=== PATIENT | female | born 1965 | race Caucasian/White ===

== ENCOUNTER 2017-07-05 11:45 | Emergency (ER) | payer OTHER ==
[~2017-07-05] VITALS: Ht 167.6 cm; Wt 68.0 kg
[~2017-07-05 11:45] MED LIST: ACET500 PO; ACIDOPHILUS1 EAC1 PO; ALBU.083IS IH; ALBU90OI6; ALBUIS; ALPR.25 PO; ALPR.5 PO; ASCO500 PO; ASPI81CH PO; ASPI81EC PO; BACL10 PO; BISA10S; BISA10S PR; Bactrim Ds Tab1 EACH PO; CEFP200 PO; CEFTAZIDIM2 GM/50 ML; CEFTAZIDIM2 GM/50 ML IV; CEPH500 PO; CHOL10002 PO; CITA20 PO; CLOT10 MT; CLOT10 SS; CRANACTIN PO; DULO60 PO; ERGO50000; ERGO50000 PO; ESCI20; Ecotrin Low Strength PO; FLUC150A PO; FLUC200 PO; FLUD.1 PO; FURO20 PO; Fludrocortison0.1 MG PO; Fludrocortison0.1 MG UD; GABA300 PO; GABA600 PO; GABA800 PO; GUAI600T33; GUAI600T33 PO; HYDACE10B; HYDCOR10 PO; LEVE500 PO; LEVO750 PO; Loperamide2 MG PO; MEROPENEM IV; MEROPENEM1000 MG IV; METH10 PO; METHADONE PO; METPHE10 PO; METPHE5 PO; MIDO5; MIDO5 PO; MOMENI; Macrobid 100 M100 MG PO; Macrodantin100 MG PO; Methylin ER10 MG PO; NITR100CA PO; Neurontin300 MG PO; Norco 10-325 T1 EACH PO; OMEP20ER PO; OMEPRAZOLE MAGN20 MG PO; ONDA4ODT PO; ONDA8 PO; OXYB5 PO; PHENA200; POTA20PAC PO; POTCHL20ER PO; PRED10 PO; PROGESTERONE CREAM; PROM25; PSEU120ER; PSEU120ER PO; PSEU30 PO; Prilosec Otc20 MG PO; Pyridium200 MG PO; RITALIN PO; RXPHEN200 PO; SACC250C PO; SENN187 PO; SULTRIDS PO; Senna-Gen8.6 MG PO; Sprintec1 EACH PO; TAZICEF IM; Tazicef1 G1 IV; Tylenol325 MG PO; VANC250 IV; Ventolin Soln3 ML; Ventolin Soln3 ML INH; Ventolin Sy2 MG/5 ML; ZOLP10 PO; ZOLP5
[2017-07-05 13:06] LABS: Source, Urine Catheter
[2017-07-05 13:13] LABS: Bilirubin, Urine Neg (Neg); Blood, Urine 4+ (Neg); Glucose Qualitative, Urine Neg (Neg); Ketones, Urine Neg (Neg); Leukocyte Esterase, Urine 3+ (Neg); Nitrite, Urine Neg (Neg); Protein, Urine 1+ (Neg); Specific Gravity, Urine 1.005 (1.003-1.022); Urobilinogen, Urine NORM (Normal)
[2017-07-05 13:19] LABS: Appearance, Urine Clear (Clear); Color, Urine Yellow (P-Yellow)
[2017-07-05 13:21] LABS: Bacteria Rare /hpf; Calcium Oxalate Crystals Mod /hpf; Red Blood Cells, Urine 0-2 /hpf (0-2); Squamous Epithelial Cells Not Seen /hpf (Few)
[2017-07-05] MEDS ORDERED: Bactrim Ds Tab1 EACH PO (13:31)
[2018-04-26] MEDS ORDERED: GABA300 PO (17:21)
[2018-04-26] MEDS ORDERED: HYDCOR10 PO (17:24)
[2018-04-26] MEDS ORDERED: Prilosec Otc20 MG PO (17:38)
[2018-04-26] MEDS ORDERED: PROGESTERONE CREAM (17:41)
[2018-05-02] MEDS ORDERED: HEPARIN IV (11:46)
== END 2017-07-05 13:40 | disposition home or self-care (01) ==
LOC: ER 11:45
PROVIDERS: Nurse Practitioner Family
DX: N39.0 Urinary tract infection, site not specified (principal); Z88.1 Allergy status to other antibiotic agents; Z88.8 Allergy status to other drugs, medicaments and biological substances; Z79.899 Other long term (current) drug therapy; Z79.82 Long term (current) use of aspirin; Z87.891 Personal history of nicotine dependence
CPT/HCPCS: 81001; 87086; 99283

== ENCOUNTER 2017-07-12 00:18 | Day surgery (SDC) | payer OTHER ==
[2017-07-12 11:31] LABS: BASOPHILS ABSOLUTE AUTO 0.09 K/mm3 (0.00-0.23); BASOPHILS PERCENT AUTO 1 % (0-2); EOSINOPHILS ABSOLUTE AUTO 0.16 K/mm3 (0.00-0.68); EOSINOPHILS PERCENT AUTO 1 % (0-6); Hematocrit 32.5 % (33.0-51.0); Hemoglobin 10.5 g/dL (11.5-16.0); IMMATURE GRAN ABSOLUTE AUTO 0.05 K/mm3 (0.00-0.10); IMMATURE GRAN PERCENT AUTO 0 % (0-1); LYMPHOCYTES ABSOLUTE AUTO 2.09 K/mm3 (0.84-5.20); LYMPHOCYTES PERCENT AUTO 19 % (21-46); MONOCYTES ABSOLUTE AUTO 0.68 K/mm3 (0.16-1.47); MONOCYTES PERCENT AUTO 6 % (4-13); Mean Corpuscular HGB 28.1 pg (26.0-34.0); Mean Corpuscular HGB Conc 32.3 g/dL (31.5-36.5); Mean Corpuscular Volume 87 fL (80-100); Mean Platelet Volume 9.7 fL (9.1-12.4); NEUTROPHILS ABSOLUTE AUTO 8.09 K/mm3 (1.96-9.15); NEUTROPHILS PERCENT AUTO 73 % (41-73); Platelet Count 479 K/mm3 (150-400); RDW Coefficient Variation 16.6 % (11.7-14.2); RDW Standard Deviation 52.1 fL (35.1-46.3); Red Blood Cell Count 3.74 M/mm3 (3.80-5.20); White Blood Cell Count 11.16 K/mm3 (4.00-11.30)
[2017-07-12 11:48] LABS: Alanine Aminotransfer (ALT/SGP 15 U/L (12-78); Albumin, Blood 3.2 g/dL (3.4-5.0); Albumin/Globulin Ratio 0.9 (0.8-1.8); Alk Phos 90 U/L (50-136); Anion Gap 9 mmol/L (6-16); Aspartate Aminotrans (AST/SGOT 13 U/L (12-37); Bilirubin, Total 0.3 mg/dL (0.1-1.0); Blood Urea Nitrogen 5 mg/dL (8-24); Bun/Creatinine Ratio 31.4 (12.0-20.0); CO2, Blood 21 mmol/L (21-32); Calcium, Blood 8.1 mg/dL (8.5-10.1); Chloride, Blood 101 mmol/L (98-108); Creatinine, Blood 0.16 mg/dL (0.40-1.00); Globulin, Blood 3.6 g/dL (2.2-4.0); Glomerular Filtration Rate >60 (60-); Glucose, Blood 81 mg/dL (70-99); Potassium, Blood 4.6 mmol/L (3.5-5.5); Sodium, Blood 131 mmol/L (136-145); Total Protein, Blood 6.8 g/dL (6.4-8.2)
[2018-04-26] MEDS ORDERED: GABA300 PO (17:21)
[2018-04-26] MEDS ORDERED: HYDCOR10 PO (17:24)
[2018-04-26] MEDS ORDERED: Prilosec Otc20 MG PO (17:38)
[2018-04-26] MEDS ORDERED: PROGESTERONE CREAM (17:41)
[2018-05-02] MEDS ORDERED: HEPARIN IV (11:46)
== END 2017-07-12 11:17 | disposition home or self-care (01) ==
LOC: ATC 00:18
PROVIDERS: Family Medicine
DX: L89.329 Pressure ulcer of left buttock, unspecified stage (principal); R50.9 Fever, unspecified; G82.50 Quadriplegia, unspecified; J96.10 Chronic respiratory failure, unspecified whether with hypoxia or hypercapnia; Z99.11 Dependence on respirator [ventilator] status; Z87.891 Personal history of nicotine dependence
CPT/HCPCS: 36591; 80053; 85025; J1642

== ENCOUNTER 2017-08-17 00:29 | Day surgery (SDC) | payer OTHER ==
[2018-04-26] MEDS ORDERED: GABA300 PO (17:21)
[2018-04-26] MEDS ORDERED: HYDCOR10 PO (17:24)
[2018-04-26] MEDS ORDERED: Prilosec Otc20 MG PO (17:38)
[2018-04-26] MEDS ORDERED: PROGESTERONE CREAM (17:41)
[2018-05-02] MEDS ORDERED: HEPARIN IV (11:46)
== END 2017-08-17 13:53 | disposition home or self-care (01) ==
LOC: ATC 00:29
DX: Z45.2 Encounter for adjustment and management of vascular access device (principal); R50.9 Fever, unspecified; G82.50 Quadriplegia, unspecified; I95.0 Idiopathic hypotension; Z99.11 Dependence on respirator [ventilator] status; L89.149 Pressure ulcer of left lower back, unspecified stage; Z87.891 Personal history of nicotine dependence
CPT/HCPCS: 96523; J1642

== ENCOUNTER 2017-08-22 06:27 | Inpatient (IN) | payer OTHER ==
[~2017-08-22] VITALS: Ht 167.6 cm; Wt 65.8 kg
[2017-08-22] MEDS ORDERED: GABA300 PO (06:52)
[2017-08-22] MEDS ORDERED: VITAMIN D350000 UNIT PO (06:55)
[2017-08-22] MEDS ORDERED: FURO20 PO (06:56)
[2017-08-22] MEDS ORDERED: VITAMIN C500 MG PO (06:57)
[2017-08-22] MEDS ORDERED: Hydrocodone-Ap1 EA20 PO (06:57)
[2017-08-22 06:58] LABS: BASOPHILS ABSOLUTE AUTO 0.05 K/mm3 (0.00-0.23); BASOPHILS PERCENT AUTO 0 % (0-2); EOSINOPHILS ABSOLUTE AUTO 0.07 K/mm3 (0.00-0.68); EOSINOPHILS PERCENT AUTO 1 % (0-6); Hematocrit 31.2 % (33.0-51.0); Hemoglobin 10.4 g/dL (11.5-16.0); IMMATURE GRAN ABSOLUTE AUTO 0.05 K/mm3 (0.00-0.10); IMMATURE GRAN PERCENT AUTO 0 % (0-1); LYMPHOCYTES ABSOLUTE AUTO 1.32 K/mm3 (0.84-5.20); LYMPHOCYTES PERCENT AUTO 9 % (21-46); MONOCYTES ABSOLUTE AUTO 1.25 K/mm3 (0.16-1.47); MONOCYTES PERCENT AUTO 8 % (4-13); Mean Corpuscular HGB 29.3 pg (26.0-34.0); Mean Corpuscular HGB Conc 33.3 g/dL (31.5-36.5); Mean Corpuscular Volume 88 fL (80-100); NEUTROPHILS ABSOLUTE AUTO 12.34 K/mm3 (1.96-9.15); NEUTROPHILS PERCENT AUTO 82 % (41-73); Platelet Count 328 K/mm3 (150-400); RDW Coefficient Variation 16.9 % (11.7-14.2); RDW Standard Deviation 54.8 fL (35.1-46.3); Red Blood Cell Count 3.55 M/mm3 (3.80-5.20); White Blood Cell Count 15.08 K/mm3 (4.00-11.30)
[2017-08-22 07:16] LABS: Alanine Aminotransfer (ALT/SGP 13 U/L (12-78); Albumin, Blood 2.7 g/dL (3.4-5.0); Albumin/Globulin Ratio 0.7 (0.8-1.8); Alk Phos 80 U/L (50-136); Anion Gap 9 mmol/L (6-16); Aspartate Aminotrans (AST/SGOT 9 U/L (12-37); Blood Urea Nitrogen 5 mg/dL (8-24); Bun/Creatinine Ratio 30.7 (12.0-20.0); CO2, Blood 20 mmol/L (21-32); Calcium, Blood 7.8 mg/dL (8.5-10.1); Chloride, Blood 100 mmol/L (98-108); Creatinine, Blood 0.16 mg/dL (0.40-1.00); Globulin, Blood 3.7 g/dL (2.2-4.0); Glomerular Filtration Rate >60 (60-); Glucose, Blood 90 mg/dL (70-99); Potassium, Blood 4.2 mmol/L (3.5-5.5); Sodium, Blood 129 mmol/L (136-145); Total Protein, Blood 6.4 g/dL (6.4-8.2)
[2017-08-22 08:00] LABS: Source, Urine Catheter
[2017-08-22 08:06] LABS: Bilirubin, Urine Neg (Neg); Blood, Urine 4+ (Neg); Glucose Qualitative, Urine Neg (Neg); Ketones, Urine Neg (Neg); Leukocyte Esterase, Urine 3+ (Neg); Nitrite, Urine Neg (Neg); Protein, Urine 2+ (Neg); Urobilinogen, Urine 1+ (Normal)
[2017-08-22 08:22] LABS: Appearance, Urine Turbid (Clear); Color, Urine Yellow (P-Yellow)
[2017-08-22 08:23] LABS: Bacteria Many /hpf; White Blood Cells, Urine TNTC /hpf (0-5)
[2017-08-22 08:26] LABS: Red Blood Cells, Urine 25-50 /hpf (0-2); Squamous Epithelial Cells Rare /hpf (Few)
[2017-08-22 08:50] LABS: Influenza A Negative (NEGATIVE); Influenza B Negative (NEGATIVE)
[2017-08-23 05:13] LABS: BASOPHILS ABSOLUTE AUTO 0.05 K/mm3 (0.00-0.23); BASOPHILS PERCENT AUTO 1 % (0-2); EOSINOPHILS ABSOLUTE AUTO 0.04 K/mm3 (0.00-0.68); EOSINOPHILS PERCENT AUTO 1 % (0-6); Hematocrit 26.2 % (33.0-51.0); Hemoglobin 8.5 g/dL (11.5-16.0); IMMATURE GRAN ABSOLUTE AUTO 0.03 K/mm3 (0.00-0.10); IMMATURE GRAN PERCENT AUTO 0 % (0-1); LYMPHOCYTES ABSOLUTE AUTO 0.55 K/mm3 (0.84-5.20); LYMPHOCYTES PERCENT AUTO 6 % (21-46); MONOCYTES ABSOLUTE AUTO 0.62 K/mm3 (0.16-1.47); MONOCYTES PERCENT AUTO 7 % (4-13); Mean Corpuscular HGB 29.1 pg (26.0-34.0); Mean Corpuscular HGB Conc 32.4 g/dL (31.5-36.5); Mean Corpuscular Volume 90 fL (80-100); Mean Platelet Volume 10.1 fL (9.1-12.4); NEUTROPHILS ABSOLUTE AUTO 7.51 K/mm3 (1.96-9.15); NEUTROPHILS PERCENT AUTO 85 % (41-73); Platelet Count 217 K/mm3 (150-400); RDW Standard Deviation 56.3 fL (35.1-46.3); Red Blood Cell Count 2.92 M/mm3 (3.80-5.20)
[2017-08-23 05:41] LABS: Anion Gap 11 mmol/L (6-16); Blood Urea Nitrogen 5 mg/dL (8-24); Bun/Creatinine Ratio 31.1 (12.0-20.0); CO2, Blood 20 mmol/L (21-32); Calcium, Blood 7.3 mg/dL (8.5-10.1); Chloride, Blood 105 mmol/L (98-108); Creatinine, Blood 0.16 mg/dL (0.40-1.00); Glomerular Filtration Rate >60 (60-); Glucose, Blood 110 mg/dL (70-99); Potassium, Blood 2.5 mmol/L (3.5-5.5); Sodium, Blood 136 mmol/L (136-145)
[2017-08-24 04:55] LABS: BASOPHILS ABSOLUTE AUTO 0.04 K/mm3 (0.00-0.23); BASOPHILS PERCENT AUTO 1 % (0-2); EOSINOPHILS ABSOLUTE AUTO 0.04 K/mm3 (0.00-0.68); EOSINOPHILS PERCENT AUTO 1 % (0-6); Hematocrit 28.3 % (33.0-51.0); Hemoglobin 9.4 g/dL (11.5-16.0); IMMATURE GRAN ABSOLUTE AUTO 0.03 K/mm3 (0.00-0.10); IMMATURE GRAN PERCENT AUTO 0 % (0-1); LYMPHOCYTES ABSOLUTE AUTO 0.49 K/mm3 (0.84-5.20); LYMPHOCYTES PERCENT AUTO 6 % (21-46); MONOCYTES ABSOLUTE AUTO 0.46 K/mm3 (0.16-1.47); MONOCYTES PERCENT AUTO 6 % (4-13); Mean Corpuscular HGB 29.1 pg (26.0-34.0); Mean Corpuscular HGB Conc 33.2 g/dL (31.5-36.5); Mean Corpuscular Volume 88 fL (80-100); Mean Platelet Volume 10.4 fL (9.1-12.4); NEUTROPHILS ABSOLUTE AUTO 6.55 K/mm3 (1.96-9.15); NEUTROPHILS PERCENT AUTO 86 % (41-73); Platelet Count 238 K/mm3 (150-400); RDW Coefficient Variation 16.9 % (11.7-14.2); RDW Standard Deviation 54.3 fL (35.1-46.3); Red Blood Cell Count 3.23 M/mm3 (3.80-5.20); White Blood Cell Count 7.61 K/mm3 (4.00-11.30)
[2017-08-24 05:24] LABS: Anion Gap 10 mmol/L (6-16); Blood Urea Nitrogen 3 mg/dL (8-24); Bun/Creatinine Ratio Unable to Calculate (12.0-20.0); CO2, Blood 23 mmol/L (21-32); Calcium, Blood 7.7 mg/dL (8.5-10.1); Chloride, Blood 101 mmol/L (98-108); Creatinine, Blood <0.14 mg/dL (0.40-1.00); Glomerular Filtration Rate Unable to Calculate (60-); Glucose, Blood 93 mg/dL (70-99); Potassium, Blood 3.4 mmol/L (3.5-5.5); Sodium, Blood 134 mmol/L (136-145)
[2017-08-26 04:31] LABS: BASOPHILS ABSOLUTE AUTO 0.05 K/mm3 (0.00-0.23); BASOPHILS PERCENT AUTO 1 % (0-2); EOSINOPHILS ABSOLUTE AUTO 0.25 K/mm3 (0.00-0.68); EOSINOPHILS PERCENT AUTO 3 % (0-6); Hematocrit 28.8 % (33.0-51.0); Hemoglobin 9.4 g/dL (11.5-16.0); IMMATURE GRAN ABSOLUTE AUTO 0.03 K/mm3 (0.00-0.10); IMMATURE GRAN PERCENT AUTO 0 % (0-1); LYMPHOCYTES ABSOLUTE AUTO 0.82 K/mm3 (0.84-5.20); LYMPHOCYTES PERCENT AUTO 11 % (21-46); MONOCYTES ABSOLUTE AUTO 0.59 K/mm3 (0.16-1.47); MONOCYTES PERCENT AUTO 8 % (4-13); Mean Corpuscular HGB 28.7 pg (26.0-34.0); Mean Corpuscular HGB Conc 32.6 g/dL (31.5-36.5); Mean Corpuscular Volume 88 fL (80-100); Mean Platelet Volume 10.1 fL (9.1-12.4); NEUTROPHILS ABSOLUTE AUTO 5.68 K/mm3 (1.96-9.15); NEUTROPHILS PERCENT AUTO 76 % (41-73); Platelet Count 302 K/mm3 (150-400); RDW Standard Deviation 54.9 fL (35.1-46.3); Red Blood Cell Count 3.27 M/mm3 (3.80-5.20); White Blood Cell Count 7.42 K/mm3 (4.00-11.30)
[2017-08-26 05:03] LABS: Alanine Aminotransfer (ALT/SGP 12 U/L (12-78); Albumin, Blood 2.5 g/dL (3.4-5.0); Albumin/Globulin Ratio 0.7 (0.8-1.8); Alk Phos 79 U/L (50-136); Anion Gap 10 mmol/L (6-16); Aspartate Aminotrans (AST/SGOT 7 U/L (12-37); Bilirubin, Total 0.8 mg/dL (0.1-1.0); Blood Urea Nitrogen 3 mg/dL (8-24); Bun/Creatinine Ratio Unable to Calculate (12.0-20.0); CO2, Blood 23 mmol/L (21-32); Calcium, Blood 7.8 mg/dL (8.5-10.1); Chloride, Blood 105 mmol/L (98-108); Creatinine, Blood <0.14 mg/dL (0.40-1.00); Globulin, Blood 3.8 g/dL (2.2-4.0); Glomerular Filtration Rate Unable to Calculate (60-); Glucose, Blood 91 mg/dL (70-99); Sodium, Blood 138 mmol/L (136-145); Total Protein, Blood 6.3 g/dL (6.4-8.2)
[2017-08-26] MEDS ORDERED: ALBU2.5V5 NEB (11:31)
[2017-08-26] MEDS ORDERED: GUAI600T33 PO (11:32)
[2017-08-26] MEDS ORDERED: Bactrim Ds Tab1 EACH PO (11:33)
[2017-08-26] MEDS ORDERED: Tazicef1 G1 IV (11:34)
[2018-04-26] MEDS ORDERED: GABA300 PO (17:21)
[2018-04-26] MEDS ORDERED: HYDCOR10 PO (17:24)
[2018-04-26] MEDS ORDERED: Prilosec Otc20 MG PO (17:38)
[2018-04-26] MEDS ORDERED: PROGESTERONE CREAM (17:41)
[2018-05-02] MEDS ORDERED: HEPARIN IV (11:46)
== END 2017-08-26 16:34 | disposition home or self-care (01) | DRG 871 ==
LOC: ER 06:27 → PCU 10:11
PROVIDERS: Emergency Medicine; Internal Medicine
DX: A41.51 Sepsis due to Escherichia coli [E. coli] (principal); G82.50 Quadriplegia, unspecified; Z99.11 Dependence on respirator [ventilator] status; J96.10 Chronic respiratory failure, unspecified whether with hypoxia or hypercapnia; Z93.0 Tracheostomy status; N39.0 Urinary tract infection, site not specified; E87.1 Hypo-osmolality and hyponatremia; E27.40 Unspecified adrenocortical insufficiency; R65.20 Severe sepsis without septic shock; J40 Bronchitis, not specified as acute or chronic; F45.8 Other somatoform disorders; D64.9 Anemia, unspecified; E87.6 Hypokalemia; E86.0 Dehydration; S14.102S Unspecified injury at C2 level of cervical spinal cord, sequela; V86.99XS Unspecified occupant of other special all-terrain or other off-road motor vehicle injured in nontraffic accident, sequela; Z88.1 Allergy status to other antibiotic agents; Z87.891 Personal history of nicotine dependence; Z88.0 Allergy status to penicillin; Z79.82 Long term (current) use of aspirin; Z79.891 Long term (current) use of opiate analgesic; Z79.52 Long term (current) use of systemic steroids; Z79.899 Other long term (current) drug therapy
CPT/HCPCS: 31720; 36415; 71045; 71046; 80048; 80053; 81001; 83605; 83735; 84132; 84145; 85025; 87040; 87070; 87077; 87086; 87186; 87205; 87804; 93005; 93010; 94640; 94667; 94668; 94762; 96361; 96365; 96375; 99285; C9113; J0696; J0713; J1450; J1642; J1650; J1720; J2405; J2543; J3480; J7030; J7040; J7060

== ENCOUNTER 2017-09-04 01:13 | Day surgery (SDC) | payer OTHER ==
[~2017-09-04 01:13] MED LIST changes: +ALBU2.5V5 NEB; +Hydrocodone-Ap1 EA20 PO; +VITAMIN C500 MG PO; +VITAMIN D350000 UNIT PO
[2017-09-04] MEDS ORDERED: Bactrim Ds Tab1 EACH PO (14:50)
[2018-04-26] MEDS ORDERED: GABA300 PO (17:21)
[2018-04-26] MEDS ORDERED: HYDCOR10 PO (17:24)
[2018-04-26] MEDS ORDERED: Prilosec Otc20 MG PO (17:38)
[2018-04-26] MEDS ORDERED: PROGESTERONE CREAM (17:41)
[2018-05-02] MEDS ORDERED: HEPARIN IV (11:46)
== END 2017-09-04 14:40 | disposition home or self-care (01) ==
LOC: ATC 01:13
DX: Z45.2 Encounter for adjustment and management of vascular access device (principal); G82.50 Quadriplegia, unspecified; J96.10 Chronic respiratory failure, unspecified whether with hypoxia or hypercapnia; I95.0 Idiopathic hypotension; R50.9 Fever, unspecified
CPT/HCPCS: 96523; J1642

== ENCOUNTER 2017-09-11 00:29 | Day surgery (SDC) | payer OTHER ==
[2017-09-11 15:34] LABS: BASOPHILS PERCENT AUTO 2 % (0-2); EOSINOPHILS ABSOLUTE AUTO 0.21 K/mm3 (0.00-0.68); EOSINOPHILS PERCENT AUTO 3 % (0-6); Hematocrit 32.6 % (33.0-51.0); Hemoglobin 10.4 g/dL (11.5-16.0); IMMATURE GRAN ABSOLUTE AUTO 0.02 K/mm3 (0.00-0.10); IMMATURE GRAN PERCENT AUTO 0 % (0-1); LYMPHOCYTES ABSOLUTE AUTO 2.07 K/mm3 (0.84-5.20); LYMPHOCYTES PERCENT AUTO 31 % (21-46); MONOCYTES ABSOLUTE AUTO 0.68 K/mm3 (0.16-1.47); MONOCYTES PERCENT AUTO 10 % (4-13); Mean Corpuscular HGB 29.1 pg (26.0-34.0); Mean Corpuscular HGB Conc 31.9 g/dL (31.5-36.5); Mean Corpuscular Volume 91 fL (80-100); NEUTROPHILS ABSOLUTE AUTO 3.68 K/mm3 (1.96-9.15); NEUTROPHILS PERCENT AUTO 54 % (41-73); Platelet Count 300 K/mm3 (150-400); RDW Coefficient Variation 16.6 % (11.7-14.2); RDW Standard Deviation 55.4 fL (35.1-46.3); Red Blood Cell Count 3.58 M/mm3 (3.80-5.20); White Blood Cell Count 6.76 K/mm3 (4.00-11.30)
[2017-09-11 15:59] LABS: Alanine Aminotransfer (ALT/SGP 26 U/L (12-78); Albumin, Blood 2.7 g/dL (3.4-5.0); Albumin/Globulin Ratio 0.7 (0.8-1.8); Alk Phos 76 U/L (50-136); Anion Gap 9 mmol/L (6-16); Aspartate Aminotrans (AST/SGOT 20 U/L (12-37); Bilirubin, Total 0.8 mg/dL (0.1-1.0); Blood Urea Nitrogen 5 mg/dL (8-24); Bun/Creatinine Ratio 29.8 (12.0-20.0); CO2, Blood 25 mmol/L (21-32); Chloride, Blood 98 mmol/L (98-108); Creatinine, Blood 0.17 mg/dL (0.40-1.00); Globulin, Blood 3.7 g/dL (2.2-4.0); Glomerular Filtration Rate >60 (60-); Glucose, Blood 82 mg/dL (70-99); Potassium, Blood 4.2 mmol/L (3.5-5.5); Sodium, Blood 132 mmol/L (136-145); Total Protein, Blood 6.4 g/dL (6.4-8.2)
[2018-04-26] MEDS ORDERED: GABA300 PO (17:21)
[2018-04-26] MEDS ORDERED: HYDCOR10 PO (17:24)
[2018-04-26] MEDS ORDERED: Prilosec Otc20 MG PO (17:38)
[2018-04-26] MEDS ORDERED: PROGESTERONE CREAM (17:41)
[2018-05-02] MEDS ORDERED: HEPARIN IV (11:46)
== END 2017-09-11 15:13 | disposition home or self-care (01) ==
LOC: ATC 00:29
PROVIDERS: Family Medicine
DX: I95.0 Idiopathic hypotension (principal); R50.9 Fever, unspecified; G82.50 Quadriplegia, unspecified; Z87.891 Personal history of nicotine dependence
CPT/HCPCS: 80053; 85025; 96523; J1642

== ENCOUNTER 2017-09-18 00:51 | Day surgery (SDC) | payer OTHER ==
[2018-04-26] MEDS ORDERED: GABA300 PO (17:21)
[2018-04-26] MEDS ORDERED: HYDCOR10 PO (17:24)
[2018-04-26] MEDS ORDERED: Prilosec Otc20 MG PO (17:38)
[2018-04-26] MEDS ORDERED: PROGESTERONE CREAM (17:41)
[2018-05-02] MEDS ORDERED: HEPARIN IV (11:46)
== END 2017-09-18 11:10 | disposition home or self-care (01) ==
LOC: ATC 00:51
DX: Z45.2 Encounter for adjustment and management of vascular access device (principal); R50.9 Fever, unspecified; G82.50 Quadriplegia, unspecified; J96.10 Chronic respiratory failure, unspecified whether with hypoxia or hypercapnia; I95.0 Idiopathic hypotension
CPT/HCPCS: 96523; J1642

== ENCOUNTER 2017-09-22 00:13 | Day surgery (SDC) | payer OTHER | END 2017-09-22 17:55 | disposition home or self-care (01) | LOC: ATC 00:13 | DX: Z45.2 Encounter for adjustment and management of vascular access device (principal); J96.10 Chronic respiratory failure, unspecified whether with hypoxia or hypercapnia; I95.0 Idiopathic hypotension; R50.9 Fever, unspecified; G82.50 Quadriplegia, unspecified; Z87.891 Personal history of nicotine dependence | CPT/HCPCS: 99211; J1642 ==

== ENCOUNTER 2017-12-28 00:23 | Day surgery (SDC) | payer OTHER | END 2017-12-28 14:35 | disposition home or self-care (01) | LOC: ATC 00:23 | DX: I95.0 Idiopathic hypotension (principal); Z87.891 Personal history of nicotine dependence | CPT/HCPCS: 96523; J1642 ==

== ENCOUNTER 2018-03-28 00:36 | Day surgery (SDC) | payer OTHER ==
[2018-03-28 16:19] LABS: BASOPHILS ABSOLUTE AUTO 0.08 K/mm3 (0.00-0.23); BASOPHILS PERCENT AUTO 1 % (0-2); EOSINOPHILS ABSOLUTE AUTO 0.45 K/mm3 (0.00-0.68); EOSINOPHILS PERCENT AUTO 4 % (0-6); Hematocrit 35.8 % (33.0-51.0); Hemoglobin 11.6 g/dL (11.5-16.0); IMMATURE GRAN ABSOLUTE AUTO 0.03 K/mm3 (0.00-0.10); IMMATURE GRAN PERCENT AUTO 0 % (0-1); LYMPHOCYTES PERCENT AUTO 14 % (21-46); MONOCYTES ABSOLUTE AUTO 1.05 K/mm3 (0.16-1.47); MONOCYTES PERCENT AUTO 8 % (4-13); Mean Corpuscular HGB 30.1 pg (26.0-34.0); Mean Corpuscular HGB Conc 32.4 g/dL (31.5-36.5); Mean Corpuscular Volume 93 fL (80-100); Mean Platelet Volume 10.1 fL (9.1-12.4); NEUTROPHILS ABSOLUTE AUTO 9.25 K/mm3 (1.96-9.15); NEUTROPHILS PERCENT AUTO 74 % (41-73); Platelet Count 369 K/mm3 (150-400); RDW Coefficient Variation 15.9 % (11.7-14.2); Red Blood Cell Count 3.86 M/mm3 (3.80-5.20); White Blood Cell Count 12.56 K/mm3 (4.00-11.30)
[2018-03-28 16:54] LABS: Anion Gap 8 mmol/L (6-16); Blood Urea Nitrogen 8 mg/dL (8-24); Bun/Creatinine Ratio Unable to Calculate (12.0-20.0); CO2, Blood 23 mmol/L (21-32); Calcium, Blood 8.3 mg/dL (8.5-10.1); Chloride, Blood 100 mmol/L (98-108); Creatinine, Blood <0.14 mg/dL (0.40-1.00); Glomerular Filtration Rate Unable to Calculate (60-); Glucose, Blood 123 mg/dL (70-99); Potassium, Blood 4.8 mmol/L (3.5-5.5); Sodium, Blood 131 mmol/L (136-145)
== END 2018-03-28 16:10 | disposition home or self-care (01) ==
LOC: ATC 00:36
PROVIDERS: Family Medicine
DX: J96.10 Chronic respiratory failure, unspecified whether with hypoxia or hypercapnia; G90.9 Disorder of the autonomic nervous system, unspecified; G82.50 Quadriplegia, unspecified; I95.0 Idiopathic hypotension; D64.9 Anemia, unspecified; E87.1 Hypo-osmolality and hyponatremia; Z87.891 Personal history of nicotine dependence
CPT/HCPCS: 36591; 80048; 85025; J1642

== ENCOUNTER 2018-06-13 00:14 | Day surgery (SDC) | payer OTHER ==
[~2018-06-13 00:14] MED LIST changes: +HEPARIN IV
[2018-06-13 15:30] LABS: Alanine Aminotransfer (ALT/SGP 17 U/L (12-78); Albumin, Blood 3.1 g/dL (3.4-5.0); Albumin/Globulin Ratio 0.9 (0.8-1.8); Alk Phos 78 U/L (50-136); Anion Gap 10 mmol/L (6-16); Aspartate Aminotrans (AST/SGOT 13 U/L (12-37); Bilirubin, Total 0.5 mg/dL (0.1-1.0); Blood Urea Nitrogen 7 mg/dL (8-24); CO2, Blood 21 mmol/L (21-32); Chloride, Blood 107 mmol/L (98-108); Creatinine, Blood 0.18 mg/dL (0.40-1.00); Globulin, Blood 3.5 g/dL (2.2-4.0); Glomerular Filtration Rate >60 (60-); Glucose, Blood 199 mg/dL (70-99); Potassium, Blood 3.9 mmol/L (3.5-5.5); Sodium, Blood 138 mmol/L (136-145); Total Protein, Blood 6.6 g/dL (6.4-8.2)
== END 2018-06-13 14:50 | disposition home or self-care (01) ==
LOC: ATC 00:14
PROVIDERS: Internal Medicine Endocrinology, Diabetes & Metabolism
DX: R78.81 Bacteremia (principal); E87.1 Hypo-osmolality and hyponatremia
CPT/HCPCS: 36591; 80053; J1642

== ENCOUNTER 2018-07-11 00:04 | Day surgery (SDC) | payer OTHER ==
[2018-07-11 15:10] LABS: BASOPHILS PERCENT AUTO 1 % (0-2); EOSINOPHILS ABSOLUTE AUTO 0.32 K/mm3 (0.00-0.68); EOSINOPHILS PERCENT AUTO 4 % (0-6); Hematocrit 32.6 % (33.0-51.0); Hemoglobin 10.4 g/dL (11.5-16.0); IMMATURE GRAN ABSOLUTE AUTO 0.02 K/mm3 (0.00-0.10); IMMATURE GRAN PERCENT AUTO 0 % (0-1); LYMPHOCYTES ABSOLUTE AUTO 1.78 K/mm3 (0.84-5.20); LYMPHOCYTES PERCENT AUTO 20 % (21-46); MONOCYTES ABSOLUTE AUTO 0.69 K/mm3 (0.16-1.47); MONOCYTES PERCENT AUTO 8 % (4-13); Mean Corpuscular HGB 29.5 pg (26.0-34.0); Mean Corpuscular HGB Conc 31.9 g/dL (31.5-36.5); Mean Corpuscular Volume 92 fL (80-100); Mean Platelet Volume 10.2 fL (9.1-12.4); NEUTROPHILS ABSOLUTE AUTO 6.13 K/mm3 (1.96-9.15); NEUTROPHILS PERCENT AUTO 68 % (41-73); Platelet Count 342 K/mm3 (150-400); RDW Coefficient Variation 15.4 % (11.7-14.2); RDW Standard Deviation 51.9 fL (35.1-46.3); Red Blood Cell Count 3.53 M/mm3 (3.80-5.20); White Blood Cell Count 9.04 K/mm3 (4.00-11.30)
== END 2018-07-11 14:57 | disposition home or self-care (01) ==
LOC: ATC 00:04
PROVIDERS: Family Medicine
DX: E87.1 Hypo-osmolality and hyponatremia (principal); D64.9 Anemia, unspecified; J96.10 Chronic respiratory failure, unspecified whether with hypoxia or hypercapnia; G90.9 Disorder of the autonomic nervous system, unspecified; G82.50 Quadriplegia, unspecified; Z87.891 Personal history of nicotine dependence
CPT/HCPCS: 36591; 83036; 85025; J1642

== ENCOUNTER 2018-08-08 00:12 | Day surgery (SDC) | payer OTHER | END 2018-08-08 13:57 | disposition home or self-care (01) | LOC: ATC 00:12 | DX: E87.1 Hypo-osmolality and hyponatremia (principal); D64.9 Anemia, unspecified | CPT/HCPCS: 96523; J1642 ==

== ENCOUNTER 2018-11-10 06:39 | Inpatient (IN) | payer OTHER ==
[~2018-11-10] VITALS: Ht 167.6 cm; Wt 68.0 kg
[2018-11-10] MEDS ORDERED: ASPI81CH PO (06:52)
[2018-11-10] MEDS ORDERED: VITAMIN D50000 UNIT PO (06:56)
[2018-11-10 07:39] LABS: Source, Urine Catheter
[2018-11-10 07:43] LABS: Bilirubin, Urine Neg (Neg); Blood, Urine 4+ (Neg); Glucose Qualitative, Urine Neg (Neg); Ketones, Urine Neg (Neg); Leukocyte Esterase, Urine 3+ (Neg); Nitrite, Urine Neg (Neg); Protein, Urine 2+ (Neg); Specific Gravity, Urine 1.005 (1.003-1.022); Urobilinogen, Urine NORM (Normal)
[2018-11-10 07:51] LABS: Appearance, Urine Hazy (Clear); Color, Urine Yellow (P-Yellow)
[2018-11-10 07:52] LABS: White Blood Cells, Urine 25-50 /hpf (0-5)
[2018-11-10 07:53] LABS: Bacteria Many /hpf; Squamous Epithelial Cells Few /hpf (Few)
[2018-11-10 07:54] LABS: Amorphous Mod (0-Heavy)
[2018-11-10 08:01] LABS: BASOPHILS ABSOLUTE AUTO 0.05 K/mm3 (0.00-0.23); BASOPHILS PERCENT AUTO 0 % (0-2); EOSINOPHILS ABSOLUTE AUTO 0.11 K/mm3 (0.00-0.68); EOSINOPHILS PERCENT AUTO 1 % (0-6); Hematocrit 32.3 % (33.0-51.0); Hemoglobin 10.7 g/dL (11.5-16.0); IMMATURE GRAN ABSOLUTE AUTO 0.05 K/mm3 (0.00-0.10); IMMATURE GRAN PERCENT AUTO 0 % (0-1); LYMPHOCYTES ABSOLUTE AUTO 1.24 K/mm3 (0.84-5.20); LYMPHOCYTES PERCENT AUTO 8 % (21-46); MONOCYTES PERCENT AUTO 6 % (4-13); Mean Corpuscular HGB Conc 33.1 g/dL (31.5-36.5); Mean Corpuscular Volume 91 fL (80-100); Mean Platelet Volume 9.4 fL (9.1-12.4); NEUTROPHILS ABSOLUTE AUTO 13.64 K/mm3 (1.96-9.15); NEUTROPHILS PERCENT AUTO 85 % (41-73); Platelet Count 319 K/mm3 (150-400); Red Blood Cell Count 3.57 M/mm3 (3.80-5.20); White Blood Cell Count 15.99 K/mm3 (4.00-11.30)
[2018-11-10 08:19] LABS: Alanine Aminotransfer (ALT/SGP 15 U/L (12-78); Albumin, Blood 2.9 g/dL (3.4-5.0); Albumin/Globulin Ratio 0.7 (0.8-1.8); Alk Phos 114 U/L (50-136); Anion Gap 7 mmol/L (6-16); Aspartate Aminotrans (AST/SGOT 9 U/L (12-37); Bilirubin, Total 0.9 mg/dL (0.1-1.0); Blood Urea Nitrogen 4 mg/dL (8-24); Bun/Creatinine Ratio 26.5 (12.0-20.0); CO2, Blood 24 mmol/L (21-32); Calcium, Blood 8.4 mg/dL (8.5-10.1); Chloride, Blood 96 mmol/L (98-108); Creatinine, Blood 0.15 mg/dL (0.40-1.00); Globulin, Blood 4.1 g/dL (2.2-4.0); Glomerular Filtration Rate >60 (60-); Glucose, Blood 83 mg/dL (70-99); Potassium, Blood 4.6 mmol/L (3.5-5.5); Sodium, Blood 127 mmol/L (136-145)
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
--- NOTE | 2018-11-11 00:50 | NUR ---
UPDATE PATIENT'S BLOOD PRESSURE ASSESSED BY THIS RN BEFORE AMBIEN WAS GIVEN. BLOOD PRESSURE 107 SYSTOLICALLY. PATIENT GIVEN MIDODRINE AT THE SAME TIME. WILL CONTINUE TO MONITOR.
[2018-11-11 04:17] LABS: BASOPHILS ABSOLUTE AUTO 0.05 K/mm3 (0.00-0.23); BASOPHILS PERCENT AUTO 1 % (0-2); EOSINOPHILS ABSOLUTE AUTO 0.02 K/mm3 (0.00-0.68); EOSINOPHILS PERCENT AUTO 0 % (0-6); Hematocrit 28.6 % (33.0-51.0); Hemoglobin 9.2 g/dL (11.5-16.0); IMMATURE GRAN ABSOLUTE AUTO 0.03 K/mm3 (0.00-0.10); IMMATURE GRAN PERCENT AUTO 0 % (0-1); LYMPHOCYTES ABSOLUTE AUTO 0.99 K/mm3 (0.84-5.20); LYMPHOCYTES PERCENT AUTO 10 % (21-46); MONOCYTES PERCENT AUTO 4 % (4-13); Mean Corpuscular HGB 28.9 pg (26.0-34.0); Mean Corpuscular HGB Conc 32.2 g/dL (31.5-36.5); Mean Corpuscular Volume 90 fL (80-100); Mean Platelet Volume 9.6 fL (9.1-12.4); NEUTROPHILS ABSOLUTE AUTO 8.37 K/mm3 (1.96-9.15); NEUTROPHILS PERCENT AUTO 85 % (41-73); Platelet Count 303 K/mm3 (150-400); RDW Coefficient Variation 16.3 % (11.7-14.2); RDW Standard Deviation 54.1 fL (35.1-46.3); Red Blood Cell Count 3.18 M/mm3 (3.80-5.20); White Blood Cell Count 9.86 K/mm3 (4.00-11.30)
[2018-11-11 04:44] LABS: Anion Gap 10 mmol/L (6-16); Blood Urea Nitrogen 5 mg/dL (8-24); Bun/Creatinine Ratio Unable to Calculate (12.0-20.0); CO2, Blood 22 mmol/L (21-32); Calcium, Blood 8.3 mg/dL (8.5-10.1); Chloride, Blood 104 mmol/L (98-108); Creatinine, Blood <0.14 mg/dL (0.40-1.00); Glomerular Filtration Rate Unable to Calculate (60-); Glucose, Blood 76 mg/dL (70-99); Potassium, Blood 3.8 mmol/L (3.5-5.5); Sodium, Blood 136 mmol/L (136-145)
--- NOTE | 2018-11-11 07:57 | NUR ---
END OF SHIFT SUMMARY ASSUMED CARE OF PT @1900. PT ALERT AND ORIENTED, TALKING WITH STAFF. PT IS QUADRAPALEGIC, HAS NO FEELING/MOVEMENT BELOW NECK. PTS HAS BEEN AT BEDSIDE T/O SHIFT. HAS BEEN COMPLETING Q2 TURNS AND CLEANING PT. PT HAS CONTINUED TO BE ON HOME VENT WITH HOME VENT SETTINGS, PT TOLERATING WELL WITH NONLABORED BREATHING. SUPRAPUBIC CATHETER PATENT AND DRAINING. PT'S BP HAS BEEN LABILE THIS SHIFT. PT HAS REQUIRED MIDODRINE PRN FOR THESE BP'S. PT'S SYSTOLIC BP DROPS TO 60'S BUT WITHIN 10 MINUTES OF MIDODRINE ADMINISTRATION, BP BEGINS TO INCREASE. PT'S BP HAS BEEN >100 SYSTOLICALLY WITH CONSISTENT MIDODRINE DOSING. PT CHRONICALLY ON THIS MEDICATION AT HOME. PT HAS RESTED FOR MAJORITY OF SHIFT WITH AT BEDSIDE. REPORT GIVEN TO ONCOMING NURSE.
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
[2018-11-12 04:17] LABS: BASOPHILS ABSOLUTE AUTO 0.01 K/mm3 (0.00-0.23); BASOPHILS PERCENT AUTO 0 % (0-2); EOSINOPHILS ABSOLUTE AUTO 0.06 K/mm3 (0.00-0.68); EOSINOPHILS PERCENT AUTO 1 % (0-6); Hematocrit 27.8 % (33.0-51.0); IMMATURE GRAN ABSOLUTE AUTO 0.02 K/mm3 (0.00-0.10); IMMATURE GRAN PERCENT AUTO 0 % (0-1); LYMPHOCYTES ABSOLUTE AUTO 1.01 K/mm3 (0.84-5.20); LYMPHOCYTES PERCENT AUTO 17 % (21-46); MONOCYTES ABSOLUTE AUTO 0.39 K/mm3 (0.16-1.47); MONOCYTES PERCENT AUTO 6 % (4-13); Mean Corpuscular HGB 29.3 pg (26.0-34.0); Mean Corpuscular HGB Conc 32.4 g/dL (31.5-36.5); Mean Corpuscular Volume 91 fL (80-100); Mean Platelet Volume 9.5 fL (9.1-12.4); NEUTROPHILS ABSOLUTE AUTO 4.58 K/mm3 (1.96-9.15); NEUTROPHILS PERCENT AUTO 76 % (41-73); Platelet Count 296 K/mm3 (150-400); RDW Coefficient Variation 16.2 % (11.7-14.2); RDW Standard Deviation 54.2 fL (35.1-46.3); Red Blood Cell Count 3.07 M/mm3 (3.80-5.20); White Blood Cell Count 6.07 K/mm3 (4.00-11.30)
[2018-11-12 04:39] LABS: Albumin, Blood 2.6 g/dL (3.4-5.0); Anion Gap 9 mmol/L (6-16); Blood Urea Nitrogen 4 mg/dL (8-24); Bun/Creatinine Ratio Unable to Calculate (12.0-20.0); CO2, Blood 22 mmol/L (21-32); Chloride, Blood 105 mmol/L (98-108); Creatinine, Blood <0.14 mg/dL (0.40-1.00); Glomerular Filtration Rate Unable to Calculate (60-); Glucose, Blood 142 mg/dL (70-99); Phosphorus, Blood 3.2 mg/dL (2.5-4.9); Potassium, Blood 2.8 mmol/L (3.5-5.5); Sodium, Blood 136 mmol/L (136-145)
--- NOTE | 2018-11-12 07:59 | NUR ---
END OF SHIFT SUMMARY ASSUMED CARE OF PT @1900. PT ALERT AND ORIENTED, TALKING APPROPRIATELY WITH STAFF. NO ACUTE CHANGES THIS SHIFT BESIDES POTASSIUM LEVEL OF 2.8, IV POTASSIUM INFUSING CURRENTLY 60MG. PT HAQS REMAINED ON HOME VENT SETTINGS. SATS >95% T/O SHIFT. PT HAS REQUIRED A FEW DOSES OF MIDODRINE BUT HAS REQUIRED LESS THIS SHIFT THAN LAST. BP HAS BEEN MARKEDLY LESS LABILE. PT HAS RESTED FOR MUCH OF THE NIGHT. HER MOTHER HAS BEEN RESTING AT HER BEDSIDE T/O SHIFT. PT HAS BEEN REPOSITIONED, PT HAS REFUSED REPOSITIONING AT TIMES THIS SHIFT. PT HAS CONTINUED TO BE PLEASANT WITH STAFF. SUPRAPUBIC CATHETER CONTINUES TO DRAIN PATENTLY. PT'S TO ROOM AT END OF SHIFT. REPORT GIVEN TO ONCOMING NURSE.
--- NOTE | 2018-11-12 13:22 | NUR ---
patient gave this student nurse permission to give care on 11/13/18 from 0630 to 1200.
--- NOTE | 2018-11-12 16:39 | NUR ---
EVENING NOTE PT RESTING QUIETLY. PT AT BEDSIDE MOST OF THE DAY. SR. NO ECTOPY. MULTIPLE DOSES OF MIDODRIN GIVEN FOR LOW BP. TALKED WITH DR MIDDLETON ABOUT BP'S. PT HAD A PERIOD OF RESP. DISTRESS. MULTIPLE SUNTIONS DONE. CPT INTIATED PER R/T. PT DISTRESS RESOLVED. SAT STABLE OTHERWISE. EXCELLENT URINE OUTPT. DENIED PAIN. SPOUCE TURNING PT. SPOUCE DID TRACH CARE WELL. CONTINUE POT.
--- NOTE | 2018-11-13 00:10 | NUR ---
Assumed care of pt at approx 1910. VSS with exception of BP, pt in no sign of distress. and son at bedside involved in care. Pt on chronic home vent, managed well by family. Pt is a quadripalegic and has family at bedside at all times to assist in q2 turns, trach suctioning, and call light usage. Pt BP is unstable. BP drops suddently, pt able to communicate with staff when she feels it dropping. Mididrine PRN q4 effective to aid in BP. Pt stated she felt anxious and SOB, Xanex given per pt request with little effectiveness. Eladio and this RN repositioned pt from laying on her R side to laying on L side. Pt stated sudden relief of SOB and anxiety. Will continue to fluff and reposition, but pt requests to remain primarily on L side for comfort. Pt able to make needs known, call light in reach of family, no further needs or concerns from pt at this time. See shift assessment for detailed assessment. Will continue to monitor and update as needed.
[2018-11-13 05:03] LABS: Albumin, Blood 2.6 g/dL (3.4-5.0); Anion Gap 8 mmol/L (6-16); Blood Urea Nitrogen 3 mg/dL (8-24); Bun/Creatinine Ratio 21.1 (12.0-20.0); CO2, Blood 23 mmol/L (21-32); Calcium, Blood 8.3 mg/dL (8.5-10.1); Chloride, Blood 106 mmol/L (98-108); Creatinine, Blood 0.14 mg/dL (0.40-1.00); Glomerular Filtration Rate >60 (60-); Glucose, Blood 84 mg/dL (70-99); Sodium, Blood 137 mmol/L (136-145)
--- NOTE | 2018-11-13 05:08 | NUR ---
Shift Summary No acute changes this shift. VSS. Pt with one hypotensive episode this shift, treated with Midodrine, BP stable after medication administration. Pt without complaints this shift. Denies pain, denies SOB, denies anxiety after xanex and reposition to the left side. , Eladio, at bedside and very involved in care. Pt remains alert and oriented, slept on and off throughout the shift. ABX tx continued this shift. No events noted on tele; pt is NSR. Repositioned to comfort q2 hours with aid of Eladio. Pt is able to swallow pills whole with water from supine position, states that this is how she takes all her medications at home. Suprapubic cath patent, draining well. Pt/pt calls appropriately and makes needs known. Will continue to monitor.
--- NOTE | 2018-11-13 12:51 | NUR ---
Patient permission Patient gave student accounts coordinator permision to participate in care on 11/14/18
--- NOTE | 2018-11-13 18:40 | NUR ---
SHIFT SUMMARY PT HAS BEEN PLEASANTLY A&O X3 ALL SHIFT, WITH NO ACUTE CHANGES. TRACHEA WAS CLEANED AND DRESSING WAS CHANGED THIS SHIFT. PROCEDURE NURSE FROM MEDICAL FLOOR CAME AND ACCESSED HER PORT ON R. CHEST. PT HAS BEEN TURNED EVERY TWO HORUS, CURRENTLY PREFERS LEFT SIDE DUE TO BEING ABLE TO BREATH EASIER. BP'S HAVE BEEN TRENDING DOWN EVERY 4 HOURS HER NORM, BEEN TREATING WITH MIDODRINE Q4 HRS, PT KNOWS WHEN HER BP IS STARTING TO DROP BELOW 100 SYSTOLIC. VSS OTHERWISE. IS AT BEDSIDE PROVIDNG THE MAJORITY OF CARE NEEDED. BED IN LOWEST POSITION, BOTH PT AND EDUCATED TO USE OF CALL LIGHT, AND PT'S HAS BEEN LETTING US KNOW ANY TIME HE LEAVES THE ROOM, DUE TO HER INABILITY TO UTILIZE CALL LIGHT.
--- NOTE | 2018-11-14 01:06 | NUR ---
Assumed care of pt at approx 1900. VSS at shift change, BP 117/76 at 1946, pt without complaints at that time. at bedside with pt until approx 0. Pt mother in law now at bedside with pt and presses call light if pt is in need of anything. Midodrine given at 2030 d/t BP 98/61. RT in with pt for breathing tx and CPT. At 2200, pt c/o SOB and anxiety. Repositioned pt but without relief. rechecked BP 85/48. Notified José Miguel Figueroa and telephone orders recieved for 10 mg midodrine one time now dose per José Miguel. Midodrine given per orders at approx 2220 and bp trending up. Pt states SOB and anxiety improved with increased BP. Pt remains awake, alert and oriented. pt is turned q2. Will continue to monitor and update as needed. See shift assessment for detailed pt assessment.
--- NOTE | 2018-11-14 05:29 | NUR ---
Shift Summary No acute changes this shift. VSS with exception of BP changes consistant with pt diagnosis of chronic adrenal insufficiency. hypotension managed by midodrine. pt repositioned q2, suprapubic cath patent and draining. Pt remains alert and oriented in no apparent sign of distress. pt denies pain or discomfort. family at bedside aiding in patient using call light. Call light is within reach of pt/family, pt/family calls appropriately. Will continue to monitor until shift change
--- NOTE | 2018-11-14 17:11 | NUR ---
NURSING PCU DAYSHIFT SUMMARY: Planned for discharge home today after ok'd by pulmonology though unable to arrange in home IV abx. hotel office manager working w/family and insurance for discharge. Pt changed to medical status w/o tele though will remain in PCU d/t trach w/home vent. Pt has remained stable w/no significant changes noted. Family at bedside t/o shift and assists pt w/all ADL's. Pt and spouse deny any questions/needs at this time, cont to monitor until rpt is given to NOC RN.
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
[2018-11-15 12:20] LABS: BASOPHILS ABSOLUTE AUTO 0.07 K/mm3 (0.00-0.23); BASOPHILS PERCENT AUTO 1 % (0-2); EOSINOPHILS ABSOLUTE AUTO 0.41 K/mm3 (0.00-0.68); EOSINOPHILS PERCENT AUTO 4 % (0-6); Hematocrit 30.9 % (33.0-51.0); Hemoglobin 9.3 g/dL (11.5-16.0); IMMATURE GRAN ABSOLUTE AUTO 0.05 K/mm3 (0.00-0.10); IMMATURE GRAN PERCENT AUTO 1 % (0-1); LYMPHOCYTES ABSOLUTE AUTO 0.67 K/mm3 (0.84-5.20); LYMPHOCYTES PERCENT AUTO 7 % (21-46); MONOCYTES ABSOLUTE AUTO 0.46 K/mm3 (0.16-1.47); MONOCYTES PERCENT AUTO 5 % (4-13); Mean Corpuscular HGB Conc 30.1 g/dL (31.5-36.5); Mean Platelet Volume 9.5 fL (9.1-12.4); NEUTROPHILS ABSOLUTE AUTO 7.82 K/mm3 (1.96-9.15); NEUTROPHILS PERCENT AUTO 83 % (41-73); Platelet Count 343 K/mm3 (150-400); Red Blood Cell Count 3.21 M/mm3 (3.80-5.20); White Blood Cell Count 9.48 K/mm3 (4.00-11.30)
[2018-11-15 12:26] LABS: Mean Corpuscular Volume 96 fL (80-100)
[2018-11-15 13:00] LABS: Albumin, Blood 2.6 g/dL (3.4-5.0); Anion Gap 8 mmol/L (6-16); Blood Urea Nitrogen 6 mg/dL (8-24); Bun/Creatinine Ratio Unable to Calculate (12.0-20.0); CO2, Blood 22 mmol/L (21-32); Calcium, Blood 7.7 mg/dL (8.5-10.1); Chloride, Blood 104 mmol/L (98-108); Glomerular Filtration Rate Unable to Calculate (60-); Glucose, Blood 91 mg/dL (70-99); Phosphorus, Blood 2.6 mg/dL (2.5-4.9); Sodium, Blood 134 mmol/L (136-145)
[2018-11-15 13:01] LABS: Creatinine, Blood <0.14 mg/dL (0.40-1.00)
--- NOTE | 2018-11-15 17:19 | NUR ---
NURSING PCU DAYSHIFT SUMMARY: No significant changes noted t/o the shift. Pt continues to experience significant fluctuations in SBP ranging from 80's to 140's during which times pt becomes symptomatic (SBP upper 70's reported during monitoring by spouse). PMD provided w/update, new d/o received. IVF initiated at 100cc/hr, pt tolerating well. Plan in place for pt to be discharged home tomorrow w/IV abx. Family remains at bedside, plan of care discussed. Pt and family deny any questions/needs at this time, call light in reach of family members, cont to monitor until rpt is given to NOC RN.
--- NOTE | 2018-11-16 06:36 | NUR ---
SHIFT SUMMARY: PATIENTS MOSTLY HYPOTENSIVE THIS SHIFT, MEDICATIONS GIVEN PER ORDERS, LOWER URINE OUTPUT, FEELS ANXIOUS AND SOB. MD NOTIFIED, MEDICATIONS AND TREATMENTS GIVEN PER MD ORDERS. WILL REPORT AND CONTINUE WITH DAY RN.
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
[2018-11-16 10:18] LABS: BASOPHILS ABSOLUTE AUTO 0.07 K/mm3 (0.00-0.23); BASOPHILS PERCENT AUTO 1 % (0-2); EOSINOPHILS ABSOLUTE AUTO 0.51 K/mm3 (0.00-0.68); EOSINOPHILS PERCENT AUTO 4 % (0-6); Hematocrit 31.9 % (33.0-51.0); Hemoglobin 9.8 g/dL (11.5-16.0); IMMATURE GRAN ABSOLUTE AUTO 0.04 K/mm3 (0.00-0.10); IMMATURE GRAN PERCENT AUTO 0 % (0-1); LYMPHOCYTES ABSOLUTE AUTO 1.79 K/mm3 (0.84-5.20); LYMPHOCYTES PERCENT AUTO 15 % (21-46); MONOCYTES ABSOLUTE AUTO 1.04 K/mm3 (0.16-1.47); MONOCYTES PERCENT AUTO 9 % (4-13); Mean Corpuscular HGB 29.9 pg (26.0-34.0); Mean Corpuscular HGB Conc 30.7 g/dL (31.5-36.5); Mean Corpuscular Volume 97 fL (80-100); Mean Platelet Volume 9.2 fL (9.1-12.4); NEUTROPHILS ABSOLUTE AUTO 8.68 K/mm3 (1.96-9.15); NEUTROPHILS PERCENT AUTO 72 % (41-73); Platelet Count 349 K/mm3 (150-400); RDW Coefficient Variation 16.1 % (11.7-14.2); RDW Standard Deviation 57.8 fL (35.1-46.3); Red Blood Cell Count 3.28 M/mm3 (3.80-5.20); White Blood Cell Count 12.13 K/mm3 (4.00-11.30)
--- NOTE | 2018-11-16 10:40 | NUR ---
ADVISED DR. HOLT THAT DR. SANDHU WOULD LIKE HIM TO SEE PT AND DETERMINE IF SHE SHOULD RECEIVE AN NG TUBE DUE TO ILEUS ON CT ABDOMEN. ADVISED DR. HOLT THAT PT'S ABDOMEN IS DISTENDED AND FIRM BUT SHE IS PASSING GAS AND HER HAS BEEN DOING DIGITAL DISIMPACTION AT LEAST ONCE PER DAY. DR. HOLT TO SEE PT AND ADVISE IF HE WOULD LIKE THE NG TUBE.
[2018-11-16 10:47] LABS: Albumin, Blood 2.4 g/dL (3.4-5.0); Anion Gap 9 mmol/L (6-16); Blood Urea Nitrogen 8 mg/dL (8-24); Bun/Creatinine Ratio 55.2 (12.0-20.0); CO2, Blood 20 mmol/L (21-32); Calcium, Blood 7.4 mg/dL (8.5-10.1); Chloride, Blood 112 mmol/L (98-108); Creatinine, Blood 0.15 mg/dL (0.40-1.00); Glomerular Filtration Rate >60 (60-); Glucose, Blood 81 mg/dL (70-99); Phosphorus, Blood 2.6 mg/dL (2.5-4.9); Potassium, Blood 2.9 mmol/L (3.5-5.5); Sodium, Blood 141 mmol/L (136-145)
--- NOTE | 2018-11-16 14:06 | NUR ---
ADVISED DR. HOLT THAT PT HAD A LARGE BM, ABDOMEN LESS DISTENDED, SOFTER, NON-TENDER, PASSING ALOT OF GAS, AFTER THE REGLAN AND MIRALAX. BP STABLE. K 2.9, POTASSIUM CHLORIDE 40 MEQS IV WILL BE COMPLETE IN [address] HOLT RECOMMENDED DISCHARGE IF PT FEELING READY WHEN POTASSIUM IS COMPLETED. CALLED DR. SANDHU TO ADVISE THE SAME. DR. SANDHU ASKED THAT I CALL HER AFTER THE POTASSIUM IS COMPLETE AND PT IS CONTINUING TO DO WELL AND READY TO DISCHARGE.
--- NOTE | 2018-11-16 16:11 | NUR ---
CALLED DR. SANDHU TO ADVISE THAT PT IS DOING MUCH BETTER AND ASKING TO GO HOME. DR. SANDHU TO COME SEE THE PATIENT AND DETERMINE IF READY TO GO HOME.
--- NOTE | 2018-11-16 16:15 | NUR ---
DR. SANDHU AT BEDSIDE FOR EVALUATION.
[2018-11-16] MEDS ORDERED: LACT PO (17:05)
[2018-11-16] MEDS ORDERED: FLUC100 PO (17:06)
[2018-11-16] MEDS ORDERED: Milk Of Ma400 MG/5 M PO (17:06)
[2018-11-16] MEDS ORDERED: Bactrim Ds Tab1 EACH PO (17:07)
[2018-11-16] MEDS ORDERED: GAVILAX17 GM PO (17:08)
[2018-11-16] MEDS ORDERED: Tazicef1 G1 IV (17:09)
--- NOTE | 2018-11-16 17:51 | NUR ---
PROVIDED DISCHARGE INSTRUCTIONS TO PT AND , ANSWERED ALL QUESTIONS. FAXED PRESCRIPTIONS TO [facility]ENN[facility] HERNANDEZ. ASSISTED PT INTO WHEELCHAIR USING THE OVERHEAD LIFT. PT FEELING MUCH BETTER.
== END 2018-11-16 17:43 | disposition home or self-care (01) | DRG 870 ==
LOC: ER 06:39 → ERHOLD 10:16 → PCU 10:16 → ICUE 11-16 07:47
PROVIDERS: Emergency Medicine; Family Medicine; ADMIT Internal Medicine
PROC: 5A1955Z Respiratory Ventilation, Greater than 96 Consecutive Hours (ICD-10-PCS; principal; 2018-11-10)
DX: A41.52 Sepsis due to Pseudomonas (principal); G82.50 Quadriplegia, unspecified; J15.1 Pneumonia due to Pseudomonas; Z99.11 Dependence on respirator [ventilator] status; E27.40 Unspecified adrenocortical insufficiency; K56.7 Ileus, unspecified; Z87.891 Personal history of nicotine dependence; Z96.0 Presence of urogenital implants; I95.9 Hypotension, unspecified; K21.9 Gastro-esophageal reflux disease without esophagitis; F41.8 Other specified anxiety disorders; E87.6 Hypokalemia; M79.2 Neuralgia and neuritis, unspecified; K59.09 Other constipation
CPT/HCPCS: 31720; 36415; 70490; 71045; 71250; 74176; 80048; 80053; 80069; 81001; 83605; 84145; 85025; 87040; 87070; 87077; 87086; 87186; 87205; 92610; 94640; 94667; 94668; 94762; 96361; 96365; 96375; 99285-25; A9270-GY; J0696; J0713; J1650; J2405; J2550; J2765; J3480; J7030; J7040; J7050; J7120; P9046

== ENCOUNTER 2018-11-23 00:22 | Day surgery (SDC) | payer OTHER ==
[~2018-11-23 00:22] MED LIST changes: +FLUC100 PO; +GAVILAX17 GM PO; +LACT PO; +Milk Of Ma400 MG/5 M PO; +VITAMIN D50000 UNIT PO
--- NOTE | 2018-11-23 11:08 | NUR ---
PT AND S.O. STATE THAT PT HAS HTN WHEN ON HYDROCORTISONE AND IT WILL GO DOWN AFTER SHE EATS, REFUSING TO NOTIFY MD AT THIS TIME. PT STATES SHE FEEL GOOD.
== END 2018-11-23 11:02 | disposition home or self-care (01) ==
LOC: ATC 00:22
DX: E87.1 Hypo-osmolality and hyponatremia (principal); D64.9 Anemia, unspecified
CPT/HCPCS: 96523; J1642

== ENCOUNTER 2018-12-25 00:06 | Day surgery (SDC) | payer OTHER | END 2018-12-25 11:20 | disposition home or self-care (01) | LOC: ATC 00:06 | DX: E87.1 Hypo-osmolality and hyponatremia (principal); F41.9 Anxiety disorder, unspecified; D64.9 Anemia, unspecified; F17.210 Nicotine dependence, cigarettes, uncomplicated; Z88.1 Allergy status to other antibiotic agents; Z88.8 Allergy status to other drugs, medicaments and biological substances | CPT/HCPCS: 96523; J1642 ==

== ENCOUNTER → 2019-01-16 | Outpatient (CLI) | payer OTHER | END | disposition home or self-care (01) | LOC: LAB 18:03 → LAB SHORT 18:03 → EDSTATUS 01-17 14:35 → LAB FUT 01-17 14:35 | DX: R05 Cough (principal) | CPT/HCPCS: 87070; 87077; 87186; 87205 ==

== ENCOUNTER 2019-01-29 00:17 | Day surgery (SDC) | payer OTHER ==
[2019-01-29 17:32] LABS: BASOPHILS ABSOLUTE AUTO 0.05 K/mm3 (0.00-0.23); BASOPHILS PERCENT AUTO 1 % (0-2); EOSINOPHILS ABSOLUTE AUTO 0.51 K/mm3 (0.00-0.68); EOSINOPHILS PERCENT AUTO 7 % (0-6); Hematocrit 32.7 % (33.0-51.0); Hemoglobin 10.7 g/dL (11.5-16.0); IMMATURE GRAN ABSOLUTE AUTO 0.02 K/mm3 (0.00-0.10); IMMATURE GRAN PERCENT AUTO 0 % (0-1); LYMPHOCYTES ABSOLUTE AUTO 1.72 K/mm3 (0.84-5.20); LYMPHOCYTES PERCENT AUTO 24 % (21-46); MONOCYTES ABSOLUTE AUTO 0.56 K/mm3 (0.16-1.47); MONOCYTES PERCENT AUTO 8 % (4-13); Mean Corpuscular HGB 30.7 pg (26.0-34.0); Mean Corpuscular HGB Conc 32.7 g/dL (31.5-36.5); Mean Corpuscular Volume 94 fL (80-100); Mean Platelet Volume 10.8 fL (9.1-12.4); NEUTROPHILS ABSOLUTE AUTO 4.34 K/mm3 (1.96-9.15); NEUTROPHILS PERCENT AUTO 60 % (41-73); Platelet Count 268 K/mm3 (150-400); RDW Coefficient Variation 15.7 % (11.7-14.2); RDW Standard Deviation 53.9 fL (35.1-46.3); Red Blood Cell Count 3.49 M/mm3 (3.80-5.20)
[2019-01-29 17:44] LABS: Alanine Aminotransfer (ALT/SGP 27 U/L (12-78); Albumin, Blood 3.2 g/dL (3.4-5.0); Albumin/Globulin Ratio 0.8 (0.8-1.8); Alk Phos 96 U/L (50-136); Anion Gap 8 mmol/L (6-16); Aspartate Aminotrans (AST/SGOT 16 U/L (12-37); Bilirubin, Total 0.5 mg/dL (0.1-1.0); Blood Urea Nitrogen 7 mg/dL (8-24); CO2, Blood 24 mmol/L (21-32); Calcium, Blood 8.3 mg/dL (8.5-10.1); Chloride, Blood 94 mmol/L (98-108); Creatinine, Blood 0.14 mg/dL (0.40-1.00); Globulin, Blood 3.8 g/dL (2.2-4.0); Glomerular Filtration Rate >60 (60-); Glucose, Blood 81 mg/dL (70-99); Potassium, Blood 4.5 mmol/L (3.5-5.5); Sodium, Blood 126 mmol/L (136-145)
== END 2019-01-29 22:44 | disposition home or self-care (01) ==
LOC: ATC 00:17
PROVIDERS: Family Medicine
DX: J02.9 Acute pharyngitis, unspecified (principal); R73.9 Hyperglycemia, unspecified; G82.51 Quadriplegia, C1-C4 complete; D64.9 Anemia, unspecified; Z87.891 Personal history of nicotine dependence
CPT/HCPCS: 36591; 80053; 85025; J1642

== ENCOUNTER 2019-03-05 00:12 | Day surgery (SDC) | payer OTHER | END 2019-03-05 13:35 | disposition home or self-care (01) | LOC: ATC 00:12 | DX: J02.9 Acute pharyngitis, unspecified (principal); D64.9 Anemia, unspecified; R73.9 Hyperglycemia, unspecified; G82.51 Quadriplegia, C1-C4 complete; Z87.891 Personal history of nicotine dependence; Z79.899 Other long term (current) drug therapy; Z79.82 Long term (current) use of aspirin; Z88.8 Allergy status to other drugs, medicaments and biological substances; Z88.1 Allergy status to other antibiotic agents | CPT/HCPCS: 96523; J1642 ==

== ENCOUNTER 2019-03-27 07:44 | Day surgery (SDC) | payer OTHER | END 2019-03-27 22:59 | disposition home or self-care (01) | LOC: WOUND 07:44 | DX: L89.211 Pressure ulcer of right hip, stage 1 (principal); G82.51 Quadriplegia, C1-C4 complete | CPT/HCPCS: G0463 ==

== ENCOUNTER 2019-04-02 00:09 | Day surgery (SDC) | payer OTHER | END 2019-04-02 15:48 | disposition home or self-care (01) | LOC: ATC 00:09 | DX: G82.51 Quadriplegia, C1-C4 complete (principal); D64.9 Anemia, unspecified; Z79.2 Long term (current) use of antibiotics; Z87.891 Personal history of nicotine dependence; Z98.890 Other specified postprocedural states | CPT/HCPCS: 96523; J1642 ==

== ENCOUNTER 2019-04-02 00:22 | Day surgery (SDC) | payer OTHER | END 2019-04-02 22:34 | disposition home or self-care (01) | LOC: WOUND 00:22 | DX: L89.211 Pressure ulcer of right hip, stage 1 (principal); R93.7 Abnormal findings on diagnostic imaging of other parts of musculoskeletal system; G82.51 Quadriplegia, C1-C4 complete; Z88.1 Allergy status to other antibiotic agents | CPT/HCPCS: 87070; 87075; 87077; 87186; 87205; 88108; G0463 ==

== ENCOUNTER 2019-04-16 00:21 | Day surgery (SDC) | payer OTHER | END 2019-04-16 22:39 | disposition home or self-care (01) | LOC: WOUND 00:21 | DX: L89.211 Pressure ulcer of right hip, stage 1 (principal); G82.51 Quadriplegia, C1-C4 complete; R93.7 Abnormal findings on diagnostic imaging of other parts of musculoskeletal system | CPT/HCPCS: G0463 ==

== ENCOUNTER → 2019-04-19 | Outpatient (CLI) | payer OTHER | END | disposition home or self-care (01) | LOC: LAB SHORT 13:00 → OLS 13:00 → LAB FUT 04-19 14:50 → EDSTATUS 04-19 14:50 | DX: N39.0 Urinary tract infection, site not specified (principal); R33.9 Retention of urine, unspecified | CPT/HCPCS: 87086 ==

== ENCOUNTER 2019-04-23 00:10 | Day surgery (SDC) | payer OTHER ==
[~2019-04-23 00:10] MED LIST changes: +Aspirin EC81 MG PO; +METHYLPHENIDATE20 M1 PO; -Methylin ER10 MG PO; +PROGESTERONE MI25 GM TOP
[2019-04-24] MEDS ORDERED: Macrobid 100 M100 MG PO (09:04)
[2019-04-24] MEDS ORDERED: ZOLP5 PO (11:57)
== END 2019-04-23 22:34 | disposition home or self-care (01) ==
LOC: WOUND 00:10
DX: L89.211 Pressure ulcer of right hip, stage 1 (principal); G82.51 Quadriplegia, C1-C4 complete
CPT/HCPCS: G0463

== ENCOUNTER 2019-04-24 08:42 | Inpatient (IN) | payer OTHER ==
[~2019-04-24] VITALS: Ht 162.6 cm; Wt 64.6 kg
[2019-04-24] MEDS ORDERED: Macrobid 100 M100 MG PO (09:04)
[2019-04-24 09:50] LABS: BASOPHILS ABSOLUTE AUTO 0.09 K/mm3 (0.00-0.23); BASOPHILS PERCENT AUTO 1 % (0-2); EOSINOPHILS ABSOLUTE AUTO 0.17 K/mm3 (0.00-0.68); EOSINOPHILS PERCENT AUTO 1 % (0-6); Hematocrit 32.1 % (33.0-51.0); Hemoglobin 10.4 g/dL (11.5-16.0); IMMATURE GRAN ABSOLUTE AUTO 0.08 K/mm3 (0.00-0.10); IMMATURE GRAN PERCENT AUTO 1 % (0-1); LYMPHOCYTES ABSOLUTE AUTO 1.01 K/mm3 (0.84-5.20); LYMPHOCYTES PERCENT AUTO 6 % (21-46); MONOCYTES ABSOLUTE AUTO 1.48 K/mm3 (0.16-1.47); MONOCYTES PERCENT AUTO 9 % (4-13); Mean Corpuscular HGB 29.4 pg (26.0-34.0); Mean Corpuscular HGB Conc 32.4 g/dL (31.5-36.5); Mean Corpuscular Volume 91 fL (80-100); Mean Platelet Volume 8.9 fL (9.1-12.4); NEUTROPHILS ABSOLUTE AUTO 14.44 K/mm3 (1.96-9.15); NEUTROPHILS PERCENT AUTO 84 % (41-73); Platelet Count 410 K/mm3 (150-400); RDW Coefficient Variation 14.2 % (11.7-14.2); RDW Standard Deviation 47.8 fL (35.1-46.3); Red Blood Cell Count 3.54 M/mm3 (3.80-5.20); White Blood Cell Count 17.27 K/mm3 (4.00-11.30)
[2019-04-24 10:15] LABS: Alanine Aminotransfer (ALT/SGP 15 U/L (12-78); Albumin/Globulin Ratio 0.7 (0.8-1.8); Alk Phos 88 U/L (50-136); Anion Gap 8 mmol/L (6-16); Aspartate Aminotrans (AST/SGOT 17 U/L (12-37); Bilirubin, Total 0.8 mg/dL (0.1-1.0); Blood Urea Nitrogen 5 mg/dL (8-24); Bun/Creatinine Ratio 26.9 (12.0-20.0); CO2, Blood 24 mmol/L (21-32); Calcium, Blood 8.5 mg/dL (8.5-10.1); Chloride, Blood 96 mmol/L (98-108); Creatinine, Blood 0.19 mg/dL (0.40-1.00); Globulin, Blood 4.2 g/dL (2.2-4.0); Glomerular Filtration Rate >60 (60-); Glucose, Blood 112 mg/dL (70-99); Potassium, Blood 4.8 mmol/L (3.5-5.5); Sodium, Blood 128 mmol/L (136-145); Total Protein, Blood 7.2 g/dL (6.4-8.2)
[2019-04-24 10:34] LABS: Troponin I <0.015 ng/mL (0.000-0.040)
[2019-04-24 10:42] LABS: Source, Urine Catheter
[2019-04-24 10:45] LABS: Bilirubin, Urine Neg (Neg); Blood, Urine 1+ (Neg); Glucose Qualitative, Urine Neg (Neg); Ketones, Urine Neg (Neg); Leukocyte Esterase, Urine 3+ (Neg); Nitrite, Urine Neg (Neg); Protein, Urine Neg (Neg); Urobilinogen, Urine NORM (Normal)
[2019-04-24 10:50] LABS: Appearance, Urine Clear (Clear); Color, Urine Yellow (P-Yellow)
[2019-04-24 10:52] LABS: Bacteria Mod /hpf; Red Blood Cells, Urine 0-2 /hpf (0-2); Squamous Epithelial Cells Rare /hpf (Few)
[2019-04-24] MEDS ORDERED: ZOLP5 PO (11:57)
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
--- NOTE | 2019-04-24 17:06 | NUR ---
NURSING PCU DAYSHIFT SUMMARY: BP decreased to 115 this afternoon compared to 170 at admission. Respiratory status remains stable, continues to produce green secretions w/suctioning, O2 sat mid 90's on RA w/TC and home vent in use, continuous bedside O2 monitoring. Respiratory PCR and MRSA nares sent to lab as ordered. RT at bedside for CPT, tolerated well. Seen by medical photographer this afternoon, new d/o received, meds administered as ordered, NS infusing at 75cc/hr x1L. S/O continues to provide majority of personal/ADL care for pt, calls for assistance as required. Pt and s/o deny any current needs or questions regarding plan of care. Rpt provided to peer RN, patient will be monitored until rpt is given to NOC RN.
[2019-04-24 17:45] LABS: Adenovirus Not Detected (NOT DETECT); Bordetella pertussis Not Detected (NOT DETECT); Chlamydophila pneumoniae Not Detected (NOT DETECT); Coronavirus 229E Not Detected (NOT DETECT); Coronavirus HKU1 Not Detected (NOT DETECT); Coronavirus NL63 Not Detected (NOT DETECT); Coronavirus OC43 Not Detected (NOT DETECT); Human Metapneumovirus Not Detected (NOT DETECT); Human Rhinovirus/Enterovirus Not Detected (NOT DETECT); Influenza A Not Detected (NOT DETECT); Influenza A/2009-H1 Not Detected (NOT DETECT); Influenza A/H1 Not Detected (NOT DETECT); Influenza A/H3 Not Detected (NOT DETECT); Influenza B Not Detected (NOT DETECT); Mycoplasma pneumoniae Not Detected (NOT DETECT); Parainfluenza Virus 1 Not Detected (NOT DETECT); Parainfluenza Virus 2 Not Detected (NOT DETECT); Parainfluenza Virus 3 Not Detected (NOT DETECT); Parainfluenza Virus 4 Not Detected (NOT DETECT); Respiratory Syncytial Virus Not Detected (NOT DETECT)
--- NOTE | 2019-04-24 22:55 | NUR ---
ASSUMED CARE OF PATIENT AT APPROXIMATELY 1900 FROM ANASTACIA Sawyer RN. PATIENT ALERT AND ORIENTED X4; PATIENT QUADRIPLEGIC; BEDBOUND; PATIENT'S BEDSIDE ASSISTING WITH ALL CARE. PATIENT DENIES PAIN, DIZZINESS OR NAUSEA; WAS NAUSEOUS BEFORE SHIFT CHANGE BUT HAD BEEN MEDICATED PER EMAR. NSR ON TELE; OXYGEN SATURATION ABOVE 90% ON HOME TRACH/VENTILATOR; SUCTIONS PATIENT; THICK GREEN SPUTUM NOTED; COARSE L/S. PATIENT TAKES PILLS WHOLE WITH WATER; SUPRAPUBIC CATH IN PLACE DRAINING CLEAR YELLOW URINE. IVF INFUSING PER ORDER. PATIENT ASKS MEDICATIONS BE HELD UNTIL SHE IS READY AT TIMES. PATIENT TURNED WHEN PATIENT REQUESTS; VERY ATTENTIVE. PATIENT CURRENTLY RESTING IN BED; CALL LIGHT IN REACH; BED IN LOWEST POSISTION; WILL CONTINUE TO MONITOR AND ASSESS UNTIL END OF SHIFT.
[2019-04-25 06:24] LABS: BASOPHILS ABSOLUTE AUTO 0.01 K/mm3 (0.00-0.23); BASOPHILS PERCENT AUTO 0 % (0-2); EOSINOPHILS PERCENT AUTO 0 % (0-6); Hematocrit 26.4 % (33.0-51.0); Hemoglobin 8.7 g/dL (11.5-16.0); IMMATURE GRAN ABSOLUTE AUTO 0.03 K/mm3 (0.00-0.10); IMMATURE GRAN PERCENT AUTO 1 % (0-1); LYMPHOCYTES ABSOLUTE AUTO 0.74 K/mm3 (0.84-5.20); LYMPHOCYTES PERCENT AUTO 13 % (21-46); MONOCYTES ABSOLUTE AUTO 0.36 K/mm3 (0.16-1.47); MONOCYTES PERCENT AUTO 6 % (4-13); Mean Corpuscular HGB 30.4 pg (26.0-34.0); Mean Corpuscular Volume 92 fL (80-100); Mean Platelet Volume 8.9 fL (9.1-12.4); NEUTROPHILS ABSOLUTE AUTO 4.72 K/mm3 (1.96-9.15); NEUTROPHILS PERCENT AUTO 81 % (41-73); Platelet Count 270 K/mm3 (150-400); RDW Coefficient Variation 14.5 % (11.7-14.2); RDW Standard Deviation 49.3 fL (35.1-46.3); Red Blood Cell Count 2.86 M/mm3 (3.80-5.20); White Blood Cell Count 5.86 K/mm3 (4.00-11.30)
--- NOTE | 2019-04-25 06:27 | NUR ---
PATIENT SLEPT ABOUT SIX HOURS LAST NIGHT. VSS. NO ACUTE CHANGES TO REPORT. WILL CONTINUE TO MONITOR AND ASSESS UNTIL END SHIFT.
[2019-04-25 06:41] LABS: Alanine Aminotransfer (ALT/SGP 16 U/L (12-78); Albumin, Blood 2.5 g/dL (3.4-5.0); Albumin/Globulin Ratio 0.7 (0.8-1.8); Alk Phos 70 U/L (50-136); Anion Gap 9 mmol/L (6-16); Aspartate Aminotrans (AST/SGOT 6 U/L (12-37); Bilirubin, Total 0.2 mg/dL (0.1-1.0); Blood Urea Nitrogen 3 mg/dL (8-24); CO2, Blood 24 mmol/L (21-32); Calcium, Blood 7.9 mg/dL (8.5-10.1); Chloride, Blood 102 mmol/L (98-108); Creatinine, Blood 0.16 mg/dL (0.40-1.00); Globulin, Blood 3.8 g/dL (2.2-4.0); Glomerular Filtration Rate >60 (60-); Glucose, Blood 181 mg/dL (70-99); Magnesium, Blood 1.9 mg/dL (1.6-2.4); Potassium, Blood 3.2 mmol/L (3.5-5.5); Sodium, Blood 135 mmol/L (136-145); Total Protein, Blood 6.3 g/dL (6.4-8.2)
--- NOTE | 2019-04-25 09:05 | NUR ---
RITALIN: PHARMACY DOES NOT MARJORIE LONG ACTING RITALIN. RECEIVED ORDER FROM DR OTERO OVER THE PHONE TO CHANGE TO SHORT ACTING RITALIN.
--- NOTE | 2019-04-25 12:07 | NUR ---
Pt states that she gets a fungal infection every time with breathing treatments she receives here in the hospital. Requesting suresh sauceda. Call to Dr. Jerome to make the request: new order received.
--- NOTE | 2019-04-25 17:54 | NUR ---
Pleasant, cooperative, and cheerful conversation and interaction with the patient and her this afternoon. She was having some hip pain around noontime, relief with [place]. Blood pressure stable. Requested Myclex sohail for prevention of thrush in her mouth. Appetite was good, goodd urine output. She has not had a bowel movement today. is providing much of her bedside care such as turning, feeding, and hygiene.
--- NOTE | 2019-04-25 20:12 | NUR ---
CALLED RAMANA TINEO TO REPORT PATIENT REQUEST TO GET MIDODRINE UPDATED TO Q4 AND 1-2 TABS NEEDED PER HOME DOSE; CURRENTLY Q6; ORDERS RECIEVED. BP 95/55; NOTIFIED OF MIDODRINE DOSE GIVEN AT 1838.
--- NOTE | 2019-04-25 21:44 | NUR ---
ASSUMED CARE OF PATIENT AT APPROXIMATELY 1910 FROM ARLEN Rose RN. PATIENT ALERT AND ORIENTED X4; PATIENT QUADRIPLEGIC; BEDBOUND; PATIENT'S BEDSIDE ASSISTING WITH ALL CARE. PATIENT DENIES PAIN, DIZZINESS OR NAUSEA; WAS NAUSEOUS BEFORE SHIFT CHANGE BUT HAD BEEN MEDICATED PER EMAR. NSR ON TELE; OXYGEN SATURATION ABOVE 90% ON HOME TRACH/VENTILATOR; SUCTIONS PATIENT; THICK GREEN SPUTUM NOTED; COARSE L/S. PATIENT TAKES PILLS WHOLE WITH WATER; SUPRAPUBIC CATH IN PLACE DRAINING CLEAR YELLOW URINE. PATIENT ASKS MEDICATIONS BE HELD UNTIL SHE IS READY AT TIMES. PATIENT'S MOTHER IN LAW AT BEDSIDE AT ASSISTING. PATIENT CURRENTLY RESTING IN BED; CALL LIGHT IN REACH; BED IN LOWEST POSISTION; WILL CONTINUE TO MONITOR AND ASSESS UNTIL END OF SHIFT.
[2019-04-26 04:11] LABS: BASOPHILS PERCENT AUTO 0 % (0-2); EOSINOPHILS PERCENT AUTO 0 % (0-6); Hematocrit 25.4 % (33.0-51.0); Hemoglobin 8.2 g/dL (11.5-16.0); IMMATURE GRAN ABSOLUTE AUTO 0.06 K/mm3 (0.00-0.10); IMMATURE GRAN PERCENT AUTO 1 % (0-1); LYMPHOCYTES PERCENT AUTO 8 % (21-46); MONOCYTES ABSOLUTE AUTO 0.49 K/mm3 (0.16-1.47); MONOCYTES PERCENT AUTO 7 % (4-13); Mean Corpuscular HGB 30.1 pg (26.0-34.0); Mean Corpuscular HGB Conc 32.3 g/dL (31.5-36.5); Mean Corpuscular Volume 93 fL (80-100); Mean Platelet Volume 9.2 fL (9.1-12.4); NEUTROPHILS ABSOLUTE AUTO 6.09 K/mm3 (1.96-9.15); NEUTROPHILS PERCENT AUTO 84 % (41-73); Platelet Count 298 K/mm3 (150-400); RDW Coefficient Variation 14.6 % (11.7-14.2); Red Blood Cell Count 2.72 M/mm3 (3.80-5.20); White Blood Cell Count 7.24 K/mm3 (4.00-11.30)
[2019-04-26 04:33] LABS: Anion Gap 9 mmol/L (6-16); Blood Urea Nitrogen 2 mg/dL (8-24); Bun/Creatinine Ratio 11.2 (12.0-20.0); CO2, Blood 24 mmol/L (21-32); Calcium, Blood 8.1 mg/dL (8.5-10.1); Chloride, Blood 103 mmol/L (98-108); Creatinine, Blood 0.18 mg/dL (0.40-1.00); Glomerular Filtration Rate >60 (60-); Glucose, Blood 142 mg/dL (70-99); Potassium, Blood 4.1 mmol/L (3.5-5.5); Sodium, Blood 136 mmol/L (136-145); Vancomycin, Trough <0.8 ug/mL (5.0-10.0)
--- NOTE | 2019-04-26 06:26 | NUR ---
PATIENT SLEPT ABOUT SIX HOURS LAST NIGHT. BP IMPROVED COMPARED TO START OF SHIFT. NO OTHER ACUTE CHANGES TO REPORT. WILL CONTINUE TO MONITOR AND ASSESS UNTIL END OF SHIFT.
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
--- NOTE | 2019-04-26 18:11 | NUR ---
PT QUITE PLEASANT TODAY, IS . DENIES PAIN. ATTENTIVE TO ASK FOR NEEDS T/O DAY. PT HAS HAD CPT TODAY. NO OTHER CONCERNS AT THIS TIME. BED IN LOW POSITION, CALL LITE IN REACH, CALLS APPROP
[2019-04-27 04:10] LABS: Hematocrit 24.5 % (33.0-51.0); Hemoglobin 7.9 g/dL (11.5-16.0); Mean Corpuscular HGB Conc 32.2 g/dL (31.5-36.5); Mean Corpuscular Volume 93 fL (80-100); RDW Coefficient Variation 14.6 % (11.7-14.2); Red Blood Cell Count 2.63 M/mm3 (3.80-5.20); White Blood Cell Count 12.14 K/mm3 (4.00-11.30)
[2019-04-27 04:14] LABS: Albumin, Blood 2.4 g/dL (3.4-5.0); Anion Gap 10 mmol/L (6-16); Blood Urea Nitrogen 2 mg/dL (8-24); CO2, Blood 22 mmol/L (21-32); Calcium, Blood 7.7 mg/dL (8.5-10.1); Chloride, Blood 103 mmol/L (98-108); Creatinine, Blood 0.15 mg/dL (0.40-1.00); Glomerular Filtration Rate >60 (60-); Glucose, Blood 107 mg/dL (70-99); Mean Platelet Volume 9.1 fL (9.1-12.4); Phosphorus, Blood 1.9 mg/dL (2.5-4.9); Platelet Count 260 K/mm3 (150-400); Potassium, Blood 2.7 mmol/L (3.5-5.5); Sodium, Blood 135 mmol/L (136-145)
[2019-04-27 05:19] LABS: BAND PERCENT MAN 14 % (0-8); BASOPHILS PERCENT MAN 0 % (0-2); EOSINOPHILS PERCENT MAN 0 % (0-6); LYMPHOCYTES ABSOLUTE MAN 0.12 K/mm3 (0.84-5.20); LYMPHOCYTES PERCENT MAN 1 % (21-46); METAMYELOCYTE ABSOLUTE MAN 0.12 K/mm3 (0.00-0.00); METAMYELOCYTE PERCENT MAN 1 % (0-0); MONOCYTES ABSOLUTE MAN 0.24 K/mm3 (0.16-1.47); MONOCYTES PERCENT MAN 2 % (4-13); MYELOCYTE ABSOLUTE MAN 0.12 K/mm3 (0.00-0.00); MYELOCYTE PERCENT MAN 1 % (0-0); NEUTROPHILS ABSOLUTE MAN 11.53 K/mm3 (1.96-9.15); SEG NEUTROPHILS PERCENT MAN 81 % (41-73); TOTAL CELLS COUNTED 100
--- NOTE | 2019-04-27 06:52 | NUR ---
SHIFT SUMMARY PT RESTING IN ROOM COMFORTABLY AT THIS TIME. SOME CHANGES IN STATUS T/O NIGHT. PT HAD EPISODE OF SEVERE NAUSEA DURING ABX THERAPY, PT WAS MEDIATED WITH ZOFRAN, NO RELEIF. PROVIDED CALLED FOR PHENERGAN, PT MEDICATED AND NAUSEA REDUCED. AM LABS SHOWED LOW POTASSIUM LEVEL. PROVIDER ORDERED KCL INFUSION. STARTED IN PERIOHERAL IV AND ORDER OBTAINED TO ACCESS MEDIPORT. ABX NOW INFUSING IN PIV AND POTASSIUM INFUSING IN MEDIPORT SITE. RESP EVEN UNLABORED ON HOME VENT VIA TRACH. SATS >95% ON RA VIA VENT PT DENIED ANY CP OR SOB T/O NIGHT. RT PERFORMED CPT BEFORE BED. PT DENIED OTHER NEEDS T/O NIGHT. WAS REPOSITIONED AT INTERVALS PER PT REQUEST. CALL LIGHT IN REACH OF FAMILY IN THE ROOM. PT IS QUAD AND UNAKBLE TO OPERATE CALL LIGHT W/O ASSIST.
--- NOTE | 2019-04-27 08:48 | NUR ---
Call to Dr Phan regarding nausea, hypotension and difficulty breathing.
--- NOTE | 2019-04-27 09:42 | NUR ---
PT LAYING IN BED AWAKE A/OX3, PLEASANT AND COOPERATIVE WITH CARE, LUNGS ARE CLEAR IN UPPER DANIELS, CRACKLES IN BASES, TRACH IN PLACE WITH HOME VENT, SPOUCE IN ROOM MANAGES MUCH OF HER CARE, HRR, TELE IN PLACE RUNNING SR PER MONITOR, SEE STRIP, NO EDEMA NOTED, PT IS QUAD, FEET ARE ELEVATED IN HEEL PROTECTORS, IV ACCESS IS PIV TO RFA, AND MEDIPORT IS ACCESSED, INFUSING ABX AND POTASSIUM, HAS NAUSIA THIS AM WHICH WAS TREATED, NO BM FOR A FEW DAYS, SUPRA PUBIC CATH DRAINING CLOUDY YELLOW URINE, SKIN C/W/D, CAN TURN HEAD, PINO, B/P IN 70'S THIS AM, SHE IS CURRENTLY RECIEVING A BOLUS, B/P UP TO 102. SPOUCE IN ROOM WITH HER CALL LIGHT IN REACH.
--- NOTE | 2019-04-27 09:49 | NUR ---
This morning, Margy was c/o nausea and difficulty breathing. Blood pressure continued to be low, although we did have one initial reading at the beginning of he shift of 112 systolic. Her Eladio did use the ambubag while we were waiting for respiratory care to arrive. Ronel Farias RT arrived and assisted the pt with ventilator to the pt's satisfaction and improvement. The pt was given midodrine, and then phenergan for her nausea. After the nausea was improved, she was given the rest of her oral medications to help with the adrenal insufficiency and blood pressure. Blood pressure was improved to 95 systolic, and Dr. Phan did put an order in for a 1 l bolus of IV fluids. The pt says that she is feeling better.
--- NOTE | 2019-04-27 12:33 | NUR ---
bp maintaining in 90's to low 100s, pt doing ok, had a breathing tx and cpt, tolerated well. multiple ivs infusing abx and kphos. no furhter changes, call light in reach, spouce at bedside.
--- NOTE | 2019-04-27 19:54 | NUR ---
Shift Summary Assumed care of pt at approx 1500. Pt complains of nausea throughout this shift unrelieved with zofran, phenergan order obtained per MD and pt medicated with more relief. Pt with VSS, family at bedside who assist with q2 turns and pt cares. Sputum sample obtained and sent per orders. Overall, pt is alert and oriented, involved in care, able to make needs known. Pt on home vent with home vent settings; RT involved in care. No acute concerns to note at this time. Handoff given to JADEN RN who assumes care at this time.
[2019-04-27 23:11] LABS: Source, Urine Catheter
[2019-04-27 23:13] LABS: Bilirubin, Urine Neg (Neg); Blood, Urine 1+ (Neg); Glucose Qualitative, Urine Neg (Neg); Ketones, Urine Neg (Neg); Leukocyte Esterase, Urine Neg (Neg); Nitrite, Urine Neg (Neg); Protein, Urine Neg (Neg); Specific Gravity, Urine 1.005 (1.003-1.022); Urobilinogen, Urine NORM (Normal)
[2019-04-27 23:14] LABS: Appearance, Urine Clear (Clear); Color, Urine Yellow (P-Yellow)
[2019-04-27 23:18] LABS: Bacteria Few /hpf; Red Blood Cells, Urine 0-2 /hpf (0-2); Squamous Epithelial Cells Not Seen /hpf (Few); White Blood Cells, Urine 0-2 /hpf (0-5)
[2019-04-28 03:55] LABS: BASOPHILS ABSOLUTE AUTO 0.02 K/mm3 (0.00-0.23); BASOPHILS PERCENT AUTO 0 % (0-2); EOSINOPHILS PERCENT AUTO 0 % (0-6); Hematocrit 26.9 % (33.0-51.0); Hemoglobin 8.6 g/dL (11.5-16.0); IMMATURE GRAN ABSOLUTE AUTO 0.09 K/mm3 (0.00-0.10); IMMATURE GRAN PERCENT AUTO 1 % (0-1); LYMPHOCYTES ABSOLUTE AUTO 0.37 K/mm3 (0.84-5.20); LYMPHOCYTES PERCENT AUTO 2 % (21-46); MONOCYTES ABSOLUTE AUTO 0.41 K/mm3 (0.16-1.47); MONOCYTES PERCENT AUTO 2 % (4-13); Mean Corpuscular HGB 30.1 pg (26.0-34.0); Mean Corpuscular Volume 94 fL (80-100); Mean Platelet Volume 9.1 fL (9.1-12.4); NEUTROPHILS ABSOLUTE AUTO 16.25 K/mm3 (1.96-9.15); NEUTROPHILS PERCENT AUTO 95 % (41-73); Platelet Count 249 K/mm3 (150-400); RDW Coefficient Variation 14.7 % (11.7-14.2); RDW Standard Deviation 51.3 fL (35.1-46.3); Red Blood Cell Count 2.86 M/mm3 (3.80-5.20); White Blood Cell Count 17.14 K/mm3 (4.00-11.30)
[2019-04-28 04:23] LABS: Alanine Aminotransfer (ALT/SGP 31 U/L (12-78); Albumin, Blood 2.6 g/dL (3.4-5.0); Albumin/Globulin Ratio 0.7 (0.8-1.8); Alk Phos 80 U/L (50-136); Anion Gap 8 mmol/L (6-16); Aspartate Aminotrans (AST/SGOT 17 U/L (12-37); Bilirubin, Total 0.2 mg/dL (0.1-1.0); Blood Urea Nitrogen 3 mg/dL (8-24); Bun/Creatinine Ratio 15.1 (12.0-20.0); CO2, Blood 24 mmol/L (21-32); Chloride, Blood 104 mmol/L (98-108); Globulin, Blood 3.7 g/dL (2.2-4.0); Glomerular Filtration Rate >60 (60-); Glucose, Blood 152 mg/dL (70-99); Potassium, Blood 4.1 mmol/L (3.5-5.5); Sodium, Blood 136 mmol/L (136-145); Total Protein, Blood 6.3 g/dL (6.4-8.2)
--- NOTE | 2019-04-28 07:39 | NUR ---
SHIFT SUMMARY PT HAS REMAINED AOX4 THROUGHOUT SHIFT. VSS. PLEASANT AND COOPERATIVE WITH CARE. PT IS QUADRIPLEGIC AND REMAINS ON BEDREST WITH FULL CARE NECESSARY. PT IS ABLE TO MAKE NEEDS KNOWN BY VERBAL EXPRESSION. HOME VENT REMAINS IN PLACE ON BASELINE SETTINGS. SPOUSE HAS REMAINED AT BEDSIDE THROUGHOUT THE NIGHT AND ASSISTS WITH MAJORITY OF CARE. URINE SPECIMEN OBTAINED PER ORDERS. PT MEDICATED MULTIPLE TIMES FOR NAUSEA THAT DECREASED WITH ORDERED MEDICATIONS- BEST RELIEF WITH REGLAN. PT TURNED Q2 WITH ASSISTANCE FROM SPOUSE. MEDICATED WITH MIRALAX LAST NIGHT WITH NO RESULTING BM, PT WITH POSITIVE BS AND PASSING FLATUS. NO OTHER CHANGES NOTED FROM INITIAL ASSESSMENT. WILL CONTINUE TO MONITOR AND REPORT TO ONCOMING SHIFT RN. BED IN LOW POSITION, CALL LIGHT IN REACH.
--- NOTE | 2019-04-28 18:01 | NUR ---
SHIFT SUMMARY PT ALERT AND ORIENTED. VS STABLE. BP HAS BEEN STABLE AND PT AND LET STAFF KNOW IF AND WHEN PT NEEDS MIDODRINE. HR HAS BEEN NSR 80'S. O2 SATS HAVE REMAIN ABOVE 90% ON HOME VENT WITH ROOM AIR. PT ANXIOUS THIS AM REPORTING SHE "CANNOT BREATHE". DR. MIDDLETON IN ROOM AND CHANGES SETTING ON HOME VENT. PT MEDICATED FOR ANXIETY. THROUGHOUT SHIFT PT REPORTS FEELING MORE ANXIOUS AND UNABLE TO BREATHE, BUT SATS REMAIN ABOVE 90% AT ALL TIMES. DR. MIDDLETON CALLED AND NOTIFIED. NEW ORDERS FOR INCREASE IN AMOUNT OF XANEX TO BE GIVEN THROUGHOUT DAY. IN THE ROOM ALL SHIFT AND REPOSITIONS PT FREQUENTLY. PT HAS BEEN NAUSEOUS THROUGHOUT SHIFT AND MEDICATED NEEDED. PT HAD ONE BM THIS SHIFT THAT WAS TWO SMALL HARD PELLETS. PT REFUSED SUPPOSITORY. WILL CONTINUE TO MONITOR AND REPORT TO ONCOMING RN. FAMILY AT BEDSIDE.
--- NOTE | 2019-04-29 06:07 | NUR ---
VENT PT, in room assisting with most care, extremly helpful, pt mouths words and he understands them very well, call light in reach, 2L via vent bleed in, takes meds whole with water, dressing changed on hip, tolerated procedure well, no major changes noted during shift, bp drops when eats so likes to take medication prior, family suctioned vent
--- NOTE | 2019-04-29 08:30 | NUR ---
ASSUMED CARE PT ALERT AND ORIENTED. TEMP ELEVATED AT 100.7. PER ORDERS BLOOD CX DRAWN X2. TYLENOL GIVEN AND COLD CLOTH PROVIDED TO PT'S FOREHEAD. DR. HERNANDEZ NOTIFIED. K+ LOW THIS AM AT 2.[address] HERNANDEZ NOTIFIED. PT STATES SHE TAKES 60 MEQ OF POTASSIUM DAILY. NEW ORDERS HAVE BEEN PLACED. ABLE TO SUCTION UP THICK SECRETIONS THIS AM. BP STABLE. HR NSR 80'S. WILL CONTINUE TO MONITOR CLOSELY. FAMILY AT BEDSIDE.
[2019-04-29 08:46] LABS: BASOPHILS ABSOLUTE AUTO 0.01 K/mm3 (0.00-0.23); BASOPHILS PERCENT AUTO 0 % (0-2); EOSINOPHILS ABSOLUTE AUTO 0.01 K/mm3 (0.00-0.68); EOSINOPHILS PERCENT AUTO 0 % (0-6); Hematocrit 27.9 % (33.0-51.0); Hemoglobin 8.9 g/dL (11.5-16.0); IMMATURE GRAN ABSOLUTE AUTO 0.07 K/mm3 (0.00-0.10); IMMATURE GRAN PERCENT AUTO 0 % (0-1); LYMPHOCYTES ABSOLUTE AUTO 0.42 K/mm3 (0.84-5.20); LYMPHOCYTES PERCENT AUTO 3 % (21-46); MONOCYTES PERCENT AUTO 4 % (4-13); Mean Corpuscular HGB 30.1 pg (26.0-34.0); Mean Corpuscular HGB Conc 31.9 g/dL (31.5-36.5); Mean Corpuscular Volume 94 fL (80-100); Mean Platelet Volume 9.2 fL (9.1-12.4); NEUTROPHILS ABSOLUTE AUTO 14.45 K/mm3 (1.96-9.15); NEUTROPHILS PERCENT AUTO 93 % (41-73); Platelet Count 258 K/mm3 (150-400); RDW Coefficient Variation 14.9 % (11.7-14.2); RDW Standard Deviation 51.5 fL (35.1-46.3); Red Blood Cell Count 2.96 M/mm3 (3.80-5.20); White Blood Cell Count 15.56 K/mm3 (4.00-11.30)
[2019-04-29 09:05] LABS: Albumin, Blood 2.6 g/dL (3.4-5.0); Anion Gap 8 mmol/L (6-16); Blood Urea Nitrogen 5 mg/dL (8-24); Bun/Creatinine Ratio 25.4 (12.0-20.0); CO2, Blood 29 mmol/L (21-32); Chloride, Blood 104 mmol/L (98-108); Glomerular Filtration Rate >60 (60-); Glucose, Blood 130 mg/dL (70-99); Phosphorus, Blood 2.5 mg/dL (2.5-4.9); Potassium, Blood 2.7 mmol/L (3.5-5.5); Sodium, Blood 141 mmol/L (136-145)
--- NOTE | 2019-04-29 17:42 | NUR ---
SHIFT SUMMARY PT ALERT AND ORIENTED. VS STABLE THIS AFTERNOON. TEMPERATURE HAS NORMALIZED. PT HAD BM THIS SHIFT. PT REPORTS FEELING LIKE SHE HAS BETTER AIR MOVEMENT TODAY. PT COMPLAINED OF SPASMS THIS MORNING AND WAS MEDICATED PER EMAR. PT HAS BEEN REPOSITIONED Q2H BY AND WITH STAFF ASSISTANCE. PT HAD BED BATH TODAY. PT REPORTS NO NAUSEA TODAY AND HAS BEEN ABLE TO TOLERATE PO INTAKE. WILL CONTINUE TO MONITOR AND REPORT TO ONCOMING RN. FAMILY AT BEDSIDE. WILL CONTINUE TO MONITOR AND REPORT TO ONCOMING RN.
[2019-04-30 03:39] LABS: BASOPHILS ABSOLUTE AUTO 0.01 K/mm3 (0.00-0.23); BASOPHILS PERCENT AUTO 0 % (0-2); EOSINOPHILS ABSOLUTE AUTO 0.02 K/mm3 (0.00-0.68); EOSINOPHILS PERCENT AUTO 0 % (0-6); Hematocrit 27.8 % (33.0-51.0); Hemoglobin 8.9 g/dL (11.5-16.0); IMMATURE GRAN ABSOLUTE AUTO 0.05 K/mm3 (0.00-0.10); IMMATURE GRAN PERCENT AUTO 0 % (0-1); LYMPHOCYTES ABSOLUTE AUTO 0.83 K/mm3 (0.84-5.20); LYMPHOCYTES PERCENT AUTO 7 % (21-46); MONOCYTES PERCENT AUTO 3 % (4-13); Mean Corpuscular HGB 29.8 pg (26.0-34.0); Mean Corpuscular Volume 93 fL (80-100); Mean Platelet Volume 9.2 fL (9.1-12.4); NEUTROPHILS PERCENT AUTO 90 % (41-73); Platelet Count 236 K/mm3 (150-400); RDW Coefficient Variation 14.8 % (11.7-14.2); RDW Standard Deviation 50.1 fL (35.1-46.3); Red Blood Cell Count 2.99 M/mm3 (3.80-5.20); White Blood Cell Count 12.81 K/mm3 (4.00-11.30)
[2019-04-30 03:59] LABS: Magnesium, Blood 1.9 mg/dL (1.6-2.4)
[2019-04-30 04:01] LABS: Albumin, Blood 2.4 g/dL (3.4-5.0); Anion Gap 7 mmol/L (6-16); Blood Urea Nitrogen 4 mg/dL (8-24); Bun/Creatinine Ratio 20.4 (12.0-20.0); CO2, Blood 30 mmol/L (21-32); Calcium, Blood 7.8 mg/dL (8.5-10.1); Chloride, Blood 102 mmol/L (98-108); Glomerular Filtration Rate >60 (60-); Glucose, Blood 128 mg/dL (70-99); Phosphorus, Blood 1.8 mg/dL (2.5-4.9); Potassium, Blood 2.1 mmol/L (3.5-5.5); Sodium, Blood 139 mmol/L (136-145)
--- NOTE | 2019-04-30 06:12 | NUR ---
Two critical values K and blood culture called in this am, called r/ leticia, k-rider ordered and started, explained situation to pt and family, call light in reach, denied nausea, took 0400 bp medication after 0500 having refused it earlier, clear yellow urine draining in to cath bag, potassium infusing in via accessed mediport with no s/sx of infection, remains at baseline for communication r/vent, will continue to monitor and treat until after sharinging bsr with pt and staff
--- NOTE | 2019-04-30 18:40 | NUR ---
SHIFT SUMMARY PT ALERT AND ORIENTED. VS STABLE. TEMP WAS SLIGHTLY ELEVATED THIS AFTERNOON AND PT MEDICATED. HR NSR. BP STABLE. O2 SATS HAVE REMAIN ABOVE 90% ON HOME VENT. PT REPOSITIONED Q2H BY AND STAFF. PT HAD BM THIS SHIFT. PT COMPLAINED OF PAIN IN HER THROAT FROM ALL THE SUCTIONING. PT MEDICATED REQUESTED. FAMILY AT BEDSIDE. WILL CONTINUE TO MONITOR AND REPORT TO ONCOMING RN.
[2019-05-01 03:42] LABS: BASOPHILS ABSOLUTE AUTO 0.01 K/mm3 (0.00-0.23); BASOPHILS PERCENT AUTO 0 % (0-2); EOSINOPHILS PERCENT AUTO 3 % (0-6); Hematocrit 27.2 % (33.0-51.0); Hemoglobin 8.6 g/dL (11.5-16.0); IMMATURE GRAN ABSOLUTE AUTO 0.04 K/mm3 (0.00-0.10); IMMATURE GRAN PERCENT AUTO 0 % (0-1); LYMPHOCYTES ABSOLUTE AUTO 1.77 K/mm3 (0.84-5.20); LYMPHOCYTES PERCENT AUTO 16 % (21-46); MONOCYTES ABSOLUTE AUTO 0.52 K/mm3 (0.16-1.47); MONOCYTES PERCENT AUTO 5 % (4-13); Mean Corpuscular HGB 29.6 pg (26.0-34.0); Mean Corpuscular HGB Conc 31.6 g/dL (31.5-36.5); Mean Corpuscular Volume 94 fL (80-100); Mean Platelet Volume 9.3 fL (9.1-12.4); NEUTROPHILS ABSOLUTE AUTO 8.64 K/mm3 (1.96-9.15); NEUTROPHILS PERCENT AUTO 77 % (41-73); Platelet Count 271 K/mm3 (150-400); RDW Coefficient Variation 14.8 % (11.7-14.2); RDW Standard Deviation 50.8 fL (35.1-46.3); Red Blood Cell Count 2.91 M/mm3 (3.80-5.20); White Blood Cell Count 11.28 K/mm3 (4.00-11.30)
[2019-05-01 03:58] LABS: Albumin, Blood 2.3 g/dL (3.4-5.0); Anion Gap 6 mmol/L (6-16); Blood Urea Nitrogen 3 mg/dL (8-24); Bun/Creatinine Ratio 14.2 (12.0-20.0); CO2, Blood 30 mmol/L (21-32); Calcium, Blood 7.8 mg/dL (8.5-10.1); Chloride, Blood 103 mmol/L (98-108); Creatinine, Blood 0.21 mg/dL (0.40-1.00); Glomerular Filtration Rate >60 (60-); Glucose, Blood 92 mg/dL (70-99); Phosphorus, Blood 2.5 mg/dL (2.5-4.9); Potassium, Blood 3.7 mmol/L (3.5-5.5); Sodium, Blood 139 mmol/L (136-145)
--- NOTE | 2019-05-01 06:49 | NUR ---
A+O, VENT WORKING DESIGNED, ASSISTING AT BEDSIDE, CALL LIGHT IN REACH, REPOSITIONED, MEDICATED PRESCIBED, MEDIDRINE GIVEN IN RESPONSE TO PT NEED WITHIN THE PARAMETERS PRESCRIBED, WILL CONTINUE TO MONITOR AND TREAT UNTIL BSR SHARED WITH DAY STAFF
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
[2019-05-01 16:29] LABS: Source, Urine Catheter
[2019-05-01 16:45] LABS: Bilirubin, Urine Neg (Neg); Blood, Urine 1+ (Neg); Glucose Qualitative, Urine Neg (Neg); Ketones, Urine Neg (Neg); Leukocyte Esterase, Urine Neg (Neg); Nitrite, Urine Neg (Neg); Protein, Urine Neg (Neg); Specific Gravity, Urine 1.005 (1.003-1.022); Urobilinogen, Urine NORM (Normal)
[2019-05-01 16:56] LABS: Appearance, Urine Clear (Clear); Color, Urine Yellow (P-Yellow)
[2019-05-01 16:59] LABS: Red Blood Cells, Urine Rare /hpf (0-2); White Blood Cells, Urine 0-2 /hpf (0-5)
[2019-05-01 17:00] LABS: Bacteria Few /hpf; Squamous Epithelial Cells Not Seen /hpf (Few)
--- NOTE | 2019-05-01 17:36 | NUR ---
NURSING PCU DAYSHIFT SUMMARY: Pt became febrile this afternoon w/temp reaching 101.2, tylenol administered as ordered, PMD notified and provided w/update regarding pt. New d/o received. R hip puncture wound cultured then repacked and dressed, urine bag changed and UA sent, sputum culture (thick/yellow) collected by RT, blood cultures drawn by lab. 1V CXR completed, CT of R hip ordered and being completed at this time. S/O has remained at bedside t/o majority of shift and assisted w/all of pt's ADL's. Plan of care discussed and questions addressed. Pt and s/o agree w/current plan of care and deny any additional needs at this time. Call light remains in reach of family, pt closely monitored when family not at bedside. Awaiting return from CT, cont to monitor for any changes.
--- NOTE | 2019-05-02 05:04 | NUR ---
PCU NOC SHIFT SUMMARY PATIENT REMAINS ALERT AND ORIENTED X4 T/O SHIFT WITH NO NEURO CHANGES NOTED. PATIENT ON BEDREST WITH Q2 TURNS TO PREVENT SKIN BREAK DOWN. HEAD OF BEAD ELEVATED. HOME TRACH WNL (DRAIN SPONGE CHANGED THIS SHIFT) ON HOME VENT. PATIENTS VSS. PATIENT AFEBRILE T/O SHIFT WITH NO COMPLAINTS OF NAUSEA OR GENERAL FEELING OF ILLNESS. PATIENT IS HOPING SHE CAN D/C HOME TODAY. HR REMAINS NSR IN THE 60S. AT BEDSIDE. SIDE RAILS UP X4. WILL CONTINUE TO MONITOR AND GIVE REPORT TO DAYSHIFT RN.
[2019-05-02 05:11] LABS: BASOPHILS ABSOLUTE AUTO 0.02 K/mm3 (0.00-0.23); BASOPHILS PERCENT AUTO 0 % (0-2); EOSINOPHILS ABSOLUTE AUTO 0.51 K/mm3 (0.00-0.68); EOSINOPHILS PERCENT AUTO 5 % (0-6); Hematocrit 27.8 % (33.0-51.0); Hemoglobin 8.8 g/dL (11.5-16.0); IMMATURE GRAN ABSOLUTE AUTO 0.08 K/mm3 (0.00-0.10); IMMATURE GRAN PERCENT AUTO 1 % (0-1); LYMPHOCYTES ABSOLUTE AUTO 2.23 K/mm3 (0.84-5.20); LYMPHOCYTES PERCENT AUTO 21 % (21-46); MONOCYTES ABSOLUTE AUTO 0.63 K/mm3 (0.16-1.47); MONOCYTES PERCENT AUTO 6 % (4-13); Mean Corpuscular HGB Conc 31.7 g/dL (31.5-36.5); Mean Corpuscular Volume 92 fL (80-100); Mean Platelet Volume 9.5 fL (9.1-12.4); NEUTROPHILS ABSOLUTE AUTO 6.98 K/mm3 (1.96-9.15); NEUTROPHILS PERCENT AUTO 67 % (41-73); Platelet Count 276 K/mm3 (150-400); RDW Coefficient Variation 14.8 % (11.7-14.2); RDW Standard Deviation 49.7 fL (35.1-46.3); Red Blood Cell Count 3.03 M/mm3 (3.80-5.20); White Blood Cell Count 10.45 K/mm3 (4.00-11.30)
[2019-05-02 05:22] LABS: Albumin, Blood 2.2 g/dL (3.4-5.0); Anion Gap 7 mmol/L (6-16); Blood Urea Nitrogen 3 mg/dL (8-24); Bun/Creatinine Ratio 15.5 (12.0-20.0); CO2, Blood 29 mmol/L (21-32); Calcium, Blood 7.7 mg/dL (8.5-10.1); Chloride, Blood 102 mmol/L (98-108); Creatinine, Blood 0.19 mg/dL (0.40-1.00); Glomerular Filtration Rate >60 (60-); Glucose, Blood 84 mg/dL (70-99); Potassium, Blood 4.3 mmol/L (3.5-5.5); Sodium, Blood 138 mmol/L (136-145)
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
--- NOTE | 2019-05-02 17:48 | NUR ---
NURSING PCU DAYSHIFT SUMMARY: No significant changes noted t/o the shift. SBP continued to fluctuate w/meals, consistent w/previous days. C/O nausea t/o shift, not releived successfully w/administered medications. Febrile t/o shift w/temp reaching 101.2, tylenol administered. Seen by PMD, new d/o received. Pulmonology consult called, seen by pulm at bedside this evening, plan of care discussed w/pt and s/o. Pt remains frustrated w/current medical condition w/miminal improvement felt. Deny any current questions/needs, call light in reach of s/o, cont to monitor until rpt is given to NOC RN.
[2019-05-03 04:38] LABS: BASOPHILS ABSOLUTE AUTO 0.03 K/mm3 (0.00-0.23); BASOPHILS PERCENT AUTO 0 % (0-2); EOSINOPHILS ABSOLUTE AUTO 0.61 K/mm3 (0.00-0.68); EOSINOPHILS PERCENT AUTO 5 % (0-6); Hematocrit 28.7 % (33.0-51.0); Hemoglobin 9.1 g/dL (11.5-16.0); IMMATURE GRAN ABSOLUTE AUTO 0.09 K/mm3 (0.00-0.10); IMMATURE GRAN PERCENT AUTO 1 % (0-1); LYMPHOCYTES ABSOLUTE AUTO 2.38 K/mm3 (0.84-5.20); LYMPHOCYTES PERCENT AUTO 20 % (21-46); MONOCYTES ABSOLUTE AUTO 0.89 K/mm3 (0.16-1.47); MONOCYTES PERCENT AUTO 8 % (4-13); Mean Corpuscular HGB 29.8 pg (26.0-34.0); Mean Corpuscular HGB Conc 31.7 g/dL (31.5-36.5); Mean Corpuscular Volume 94 fL (80-100); Mean Platelet Volume 9.5 fL (9.1-12.4); NEUTROPHILS ABSOLUTE AUTO 7.76 K/mm3 (1.96-9.15); NEUTROPHILS PERCENT AUTO 66 % (41-73); Platelet Count 323 K/mm3 (150-400); RDW Coefficient Variation 15.1 % (11.7-14.2); RDW Standard Deviation 51.6 fL (35.1-46.3); Red Blood Cell Count 3.05 M/mm3 (3.80-5.20); White Blood Cell Count 11.76 K/mm3 (4.00-11.30)
--- NOTE | 2019-05-03 04:47 | NUR ---
SHIFT SUMMARY: PATIENT REMAINED AFEBRILE THIS SHIFT, VSS. PATIENT REFUSED Q2 TURNS D/T NAUSEA BUT ALLOWED Q4 TURNS. INCREASED ROUNDING AND VITAL SIGNS, BED LOW AND LOCKED, AT BEDSIDE.
[2019-05-03 04:59] LABS: Albumin, Blood 2.1 g/dL (3.4-5.0); Anion Gap 9 mmol/L (6-16); Blood Urea Nitrogen 3 mg/dL (8-24); Bun/Creatinine Ratio 15.8 (12.0-20.0); CO2, Blood 27 mmol/L (21-32); Calcium, Blood 7.5 mg/dL (8.5-10.1); Chloride, Blood 104 mmol/L (98-108); Creatinine, Blood 0.19 mg/dL (0.40-1.00); Glomerular Filtration Rate >60 (60-); Glucose, Blood 94 mg/dL (70-99); Phosphorus, Blood 3.5 mg/dL (2.5-4.9); Potassium, Blood 3.5 mmol/L (3.5-5.5); Sodium, Blood 140 mmol/L (136-145)
--- NOTE | 2019-05-03 18:33 | NUR ---
SHIFT NOTE PT HAS LAST DOSE OF MERRUM INFUSING NOW. PT HAS REMAINED ALERT, TOLERATING VENT WELL. BP HAS TRENDED UP AND DOWN T/O SHIFT, BUT APPEARS TO HAVE FOLLOWED A SIMILAR TREND YESTERDAY. PUNTURE TO RT HIP WAS REPACKED TODAY, NO DRAINAGE NOTED FROM WOUND WHEN PACKED BUT DR GREENE REPORTED THAT SHE HAD NOTED YELLOW DRAINAGE. PT OTHERWISE HAS HAD A GOOD DAY WITH NO GROSS CHANGES.
--- NOTE | 2019-05-04 03:21 | NUR ---
shift summary: Patient had episode of quickly fluctuating blood pressures at approx 1930 through 2300. Patients SBP dropping to 80's and 90's with intermittent increases to sbp 130 and 140. Patient c/o sob, bilateral upper leg cramping/pain and feeling "bad". Medications administered per MD orders, all other VSS. RT, PA and ICU charge contacted and assisted in assessment and care of patient. Patient blood pressure began to stabalize at approx 2300, monitoring closely, patient son at bedside.
[2019-05-04 04:53] LABS: BASOPHILS ABSOLUTE AUTO 0.03 K/mm3 (0.00-0.23); BASOPHILS PERCENT AUTO 0 % (0-2); EOSINOPHILS PERCENT AUTO 5 % (0-6); Hematocrit 28.9 % (33.0-51.0); Hemoglobin 9.2 g/dL (11.5-16.0); IMMATURE GRAN ABSOLUTE AUTO 0.09 K/mm3 (0.00-0.10); IMMATURE GRAN PERCENT AUTO 1 % (0-1); LYMPHOCYTES ABSOLUTE AUTO 2.16 K/mm3 (0.84-5.20); LYMPHOCYTES PERCENT AUTO 25 % (21-46); MONOCYTES ABSOLUTE AUTO 0.66 K/mm3 (0.16-1.47); MONOCYTES PERCENT AUTO 8 % (4-13); Mean Corpuscular HGB Conc 31.8 g/dL (31.5-36.5); Mean Corpuscular Volume 94 fL (80-100); Mean Platelet Volume 9.3 fL (9.1-12.4); NEUTROPHILS ABSOLUTE AUTO 5.28 K/mm3 (1.96-9.15); NEUTROPHILS PERCENT AUTO 61 % (41-73); Platelet Count 348 K/mm3 (150-400); RDW Coefficient Variation 15.2 % (11.7-14.2); RDW Standard Deviation 51.9 fL (35.1-46.3); Red Blood Cell Count 3.07 M/mm3 (3.80-5.20); White Blood Cell Count 8.62 K/mm3 (4.00-11.30)
[2019-05-04 05:22] LABS: Alanine Aminotransfer (ALT/SGP 11 U/L (12-78); Albumin, Blood 2.2 g/dL (3.4-5.0); Albumin/Globulin Ratio 0.6 (0.8-1.8); Alk Phos 96 U/L (50-136); Anion Gap 7 mmol/L (6-16); Aspartate Aminotrans (AST/SGOT 11 U/L (12-37); Bilirubin, Total 0.6 mg/dL (0.1-1.0); Blood Urea Nitrogen 3 mg/dL (8-24); Bun/Creatinine Ratio 16.5 (12.0-20.0); CO2, Blood 26 mmol/L (21-32); Calcium, Blood 7.8 mg/dL (8.5-10.1); Chloride, Blood 107 mmol/L (98-108); Creatinine, Blood 0.18 mg/dL (0.40-1.00); Glomerular Filtration Rate >60 (60-); Glucose, Blood 77 mg/dL (70-99); Potassium, Blood 3.5 mmol/L (3.5-5.5); Sodium, Blood 140 mmol/L (136-145); Total Protein, Blood 6.2 g/dL (6.4-8.2)
[2019-05-04] MEDS ORDERED: TYLENOL325 MG PO (12:06)
[2019-05-04] MEDS ORDERED: Culturelle1 CAP PO (12:07)
--- NOTE | 2019-05-04 13:20 | NUR ---
PT HAD MEDIPORT DEACCESSD [facility] 500 UNIT HEPARIN FLUSH, D/C INTACT. PT AND FAMILY EXPRESSED UNDERSTANDING OF DC TEACHING AND DENIES FURTHER NEEDS
== END 2019-05-04 13:20 | disposition home or self-care (01) | DRG 870 ==
LOC: ER 08:42 → PCU 10:51
PROVIDERS: Emergency Medicine; Internal Medicine; Internal Medicine Critical Care Medicine; Nurse Practitioner Acute Care; ADMIT Internal Medicine
PROC: 5A1955Z Respiratory Ventilation, Greater than 96 Consecutive Hours (ICD-10-PCS; principal; 2019-04-24)
DX: A41.52 Sepsis due to Pseudomonas (principal); L89.214 Pressure ulcer of right hip, stage 4; G82.50 Quadriplegia, unspecified; J96.20 Acute and chronic respiratory failure, unspecified whether with hypoxia or hypercapnia; J15.1 Pneumonia due to Pseudomonas; E87.1 Hypo-osmolality and hyponatremia; J98.11 Atelectasis; E27.40 Unspecified adrenocortical insufficiency; B37.0 Candidal stomatitis; Z99.11 Dependence on respirator [ventilator] status; Z79.82 Long term (current) use of aspirin; Z93.0 Tracheostomy status; Z87.891 Personal history of nicotine dependence; F32.9 Major depressive disorder, single episode, unspecified; F41.1 Generalized anxiety disorder; E87.6 Hypokalemia; I95.89 Other hypotension; E83.39 Other disorders of phosphorus metabolism
CPT/HCPCS: 0099U; 31720; 36415; 71045; 71260; 73701; 80048; 80053; 80069; 80202; 81001; 82947; 83605; 83735; 83880; 84145; 84484; 85025; 87040; 87070; 87075; 87077; 87086; 87186; 87205; 87449; 93005; 93010; 94640; 94667; 94668; 94762; 96361; 96365-59; 96375-59; 99285-25; A9270; J0713; J1642; J1650; J1720; J1940; J2185; J2405; J2550; J2765; J3370; J3480; J7030; J7040; J7050; J7060; J7120; Q9967

== ENCOUNTER 2019-05-10 11:33 | Day surgery (SDC) | payer OTHER ==
[~2019-05-10] VITALS: Ht 170.2 cm; Wt 66.0 kg
[~2019-05-10 11:33] MED LIST changes: +Culturelle1 CAP PO; +TYLENOL325 MG PO; +ZOLP5 PO
--- NOTE | 2019-05-10 13:15 | NUR ---
History, Chart, Medications and Allergies reviewed before start of procedure.Patient confirms NPO status and agrees with scheduled surgery. Lungs cOURSE T/O to Auscultation. PT ON HOME VENT, ON ROOM AIR. NORMAL PER PATIENT AND SPOUSE.PT PARQAGALEGIC W/C BOUND.
--- NOTE | 2019-05-10 14:04 | NUR ---
05/10/19 1403 Nallely Granados History, Chart, Medications and Allergies reviewed before start of procedure.MODERATE SEDATION PER DR. GREENE.MONITOR INTACT WITH CONTINUOUS PULSE OXIMETRY AND INTERMITTENT BP.3-LEAD EKG REVIEWED WITH PHYSICIAN PRIOR TO START OF PROCEDURE. O2 AT 10 L VIA HOME VENT TO TRACH.
--- NOTE | 2019-05-10 15:17 | NUR ---
DEACCESSED AND BANDAID PLACED. PTS THEN PROCEEDED TO GET PT DRESSED FOR DISCHARGE HOME.
== END 2019-05-10 15:10 | disposition home or self-care (01) ==
LOC: ORSCMMR 11:33 → ORD 13:30 → ORSCMMR 13:30
PROVIDERS: Internal Medicine Critical Care Medicine
PROC: 0B9J8ZX Drainage of Left Lower Lung Lobe, Via Natural or Artificial Opening Endoscopic, Diagnostic (ICD-10-PCS; principal; 2019-05-10 13:30)
PROC: 0B9F8ZX Drainage of Right Lower Lung Lobe, Via Natural or Artificial Opening Endoscopic, Diagnostic (ICD-10-PCS; principal; 2019-05-10 13:30)
DX: J98.11 Atelectasis (principal); Z87.891 Personal history of nicotine dependence; Z79.82 Long term (current) use of aspirin; Z79.899 Other long term (current) drug therapy
CPT/HCPCS: 87070; 87077; 87186; 87205; J2250; J3010; J7120

== ENCOUNTER 2019-05-14 13:50 | Day surgery (SDC) | payer OTHER | END 2019-05-14 22:39 | disposition home or self-care (01) | LOC: WOUND 13:50 | DX: L89.211 Pressure ulcer of right hip, stage 1 (principal); G82.51 Quadriplegia, C1-C4 complete; Z87.891 Personal history of nicotine dependence | CPT/HCPCS: 87070; 87075; 87077; 87186; 87205; G0463 ==

== ENCOUNTER 2019-05-28 13:50 | Day surgery (SDC) | payer OTHER | END 2019-05-28 22:57 | disposition home or self-care (01) | LOC: WOUND 13:50 | DX: L72.9 Follicular cyst of the skin and subcutaneous tissue, unspecified (principal); L89.211 Pressure ulcer of right hip, stage 1; L02.415 Cutaneous abscess of right lower limb; G82.51 Quadriplegia, C1-C4 complete; I95.9 Hypotension, unspecified; N31.9 Neuromuscular dysfunction of bladder, unspecified; D64.9 Anemia, unspecified; G62.9 Polyneuropathy, unspecified; G40.909 Epilepsy, unspecified, not intractable, without status epilepticus; F41.9 Anxiety disorder, unspecified; Z99.3 Dependence on wheelchair; Z99.11 Dependence on respirator [ventilator] status; Z88.1 Allergy status to other antibiotic agents; Z79.52 Long term (current) use of systemic steroids; Z79.82 Long term (current) use of aspirin; Z79.899 Other long term (current) drug therapy | CPT/HCPCS: G0463 ==

== ENCOUNTER 2019-06-04 13:47 | Day surgery (SDC) | payer OTHER | END 2019-06-04 22:55 | disposition home or self-care (01) | LOC: WOUND 13:47 | DX: L89.211 Pressure ulcer of right hip, stage 1 (principal); G82.51 Quadriplegia, C1-C4 complete; L02.415 Cutaneous abscess of right lower limb | CPT/HCPCS: G0463 ==

== ENCOUNTER 2019-06-07 08:05 | Day surgery (SDC) | payer OTHER ==
[2019-06-07 11:06] LABS: Albumin, Blood 2.8 g/dL (3.4-5.0); Anion Gap 7 mmol/L (6-16); Blood Urea Nitrogen 9 mg/dL (8-24); Bun/Creatinine Ratio 61.6 (12.0-20.0); CO2, Blood 22 mmol/L (21-32); Calcium, Blood 7.9 mg/dL (8.5-10.1); Chloride, Blood 98 mmol/L (98-108); Creatinine, Blood 0.15 mg/dL (0.40-1.00); Glomerular Filtration Rate >60 (60-); Glucose, Blood 88 mg/dL (70-99); Potassium, Blood 4.1 mmol/L (3.5-5.5); Prealbumin, Blood 20.1 mg/dL (20.0-40.0); Sodium, Blood 127 mmol/L (136-145)
== END 2019-06-07 10:36 | disposition home or self-care (01) ==
LOC: ATC 08:05
PROVIDERS: Nurse Practitioner Family
DX: R93.7 Abnormal findings on diagnostic imaging of other parts of musculoskeletal system (principal); L89.211 Pressure ulcer of right hip, stage 1; L02.415 Cutaneous abscess of right lower limb; G82.51 Quadriplegia, C1-C4 complete; D64.9 Anemia, unspecified; J96.10 Chronic respiratory failure, unspecified whether with hypoxia or hypercapnia; G90.9 Disorder of the autonomic nervous system, unspecified; G40.909 Epilepsy, unspecified, not intractable, without status epilepticus; N31.9 Neuromuscular dysfunction of bladder, unspecified; Z88.1 Allergy status to other antibiotic agents; Z88.8 Allergy status to other drugs, medicaments and biological substances; Z79.82 Long term (current) use of aspirin; Z79.899 Other long term (current) drug therapy; Z87.820 Personal history of traumatic brain injury; Z93.0 Tracheostomy status; Z98.1 Arthrodesis status; Z98.51 Tubal ligation status; Z87.891 Personal history of nicotine dependence
CPT/HCPCS: 36591; 80048; 82040; 84134; J1642

== ENCOUNTER 2019-06-11 13:53 | Day surgery (SDC) | payer OTHER ==
[2019-06-11] MEDS ORDERED: Norco 5-325 Ta1 EACH PO (19:35)
[2019-06-11] MEDS ORDERED: IBUP600 PO (19:35)
== END 2019-06-11 23:29 | disposition home or self-care (01) ==
LOC: WOUND 13:53
DX: L72.9 Follicular cyst of the skin and subcutaneous tissue, unspecified (principal); L89.211 Pressure ulcer of right hip, stage 1; G82.51 Quadriplegia, C1-C4 complete; G40.909 Epilepsy, unspecified, not intractable, without status epilepticus; D64.9 Anemia, unspecified; G62.9 Polyneuropathy, unspecified; N31.9 Neuromuscular dysfunction of bladder, unspecified; F41.8 Other specified anxiety disorders; Z99.11 Dependence on respirator [ventilator] status; Z79.899 Other long term (current) drug therapy
CPT/HCPCS: G0463

== ENCOUNTER 2019-06-11 15:16 | Emergency (ER) | payer OTHER ==
[~2019-06-11] VITALS: Ht 167.6 cm; Wt 63.5 kg
[2019-06-11] MEDS ORDERED: IBUP600 PO (19:35)
[2019-06-11] MEDS ORDERED: Norco 5-325 Ta1 EACH PO (19:35)
== END 2019-06-11 20:05 | disposition home or self-care (01) ==
LOC: ER 15:16
DX: S72.451A Displaced supracondylar fracture without intracondylar extension of lower end of right femur, initial encounter for closed fracture (principal); G82.20 Paraplegia, unspecified; Z88.1 Allergy status to other antibiotic agents; Z88.8 Allergy status to other drugs, medicaments and biological substances; Z79.899 Other long term (current) drug therapy; Z87.891 Personal history of nicotine dependence; X58.XXXA Exposure to other specified factors, initial encounter
CPT/HCPCS: 29505; 73560-RT; 83605; 99283-25

== ENCOUNTER → 2019-07-04 | Outpatient (CLI) | payer OTHER ==
[~2019-07-04] MED LIST changes: +IBUP600 PO; +Norco 5-325 Ta1 EACH PO
== END | disposition home or self-care (01) ==
LOC: LAB SHORT 10:00 → OLS 10:00 → EDSTATUS 07-03 16:25 → LAB FUT 07-03 16:25
DX: R05 Cough (principal)
CPT/HCPCS: 87070; 87077; 87186; 87205

== ENCOUNTER 2019-07-09 00:09 | Day surgery (SDC) | payer OTHER | END 2019-07-09 11:02 | disposition home or self-care (01) | LOC: ATC 00:09 | DX: G82.51 Quadriplegia, C1-C4 complete (principal); R93.7 Abnormal findings on diagnostic imaging of other parts of musculoskeletal system; L89.211 Pressure ulcer of right hip, stage 1; L02.415 Cutaneous abscess of right lower limb; G62.9 Polyneuropathy, unspecified; G90.1 Familial dysautonomia [Riley-Day]; D64.9 Anemia, unspecified; J96.10 Chronic respiratory failure, unspecified whether with hypoxia or hypercapnia; G40.909 Epilepsy, unspecified, not intractable, without status epilepticus; G89.0 Central pain syndrome; R33.9 Retention of urine, unspecified; N31.9 Neuromuscular dysfunction of bladder, unspecified; M35.00 Sjogren syndrome, unspecified; F41.9 Anxiety disorder, unspecified; G90.9 Disorder of the autonomic nervous system, unspecified; Z98.1 Arthrodesis status; Z87.820 Personal history of traumatic brain injury; Z79.51 Long term (current) use of inhaled steroids; Z79.899 Other long term (current) drug therapy; Z88.1 Allergy status to other antibiotic agents; Z88.8 Allergy status to other drugs, medicaments and biological substances | CPT/HCPCS: 96523; J1642 ==

== ENCOUNTER 2019-07-09 00:15 | Day surgery (SDC) | payer OTHER | END 2019-07-09 22:55 | disposition home or self-care (01) | LOC: WOUND 00:15 | DX: L89.211 Pressure ulcer of right hip, stage 1 (principal); G82.51 Quadriplegia, C1-C4 complete; L02.415 Cutaneous abscess of right lower limb; R93.7 Abnormal findings on diagnostic imaging of other parts of musculoskeletal system; N31.9 Neuromuscular dysfunction of bladder, unspecified; Z79.899 Other long term (current) drug therapy; Z88.1 Allergy status to other antibiotic agents; Z99.11 Dependence on respirator [ventilator] status | CPT/HCPCS: G0463 ==

== ENCOUNTER 2019-07-23 00:21 | Day surgery (SDC) | payer OTHER | END 2019-07-23 22:50 | disposition home or self-care (01) | LOC: WOUND 00:21 | DX: L89.211 Pressure ulcer of right hip, stage 1 (principal); G82.51 Quadriplegia, C1-C4 complete | CPT/HCPCS: G0463 ==

== ENCOUNTER 2019-08-13 00:08 | Day surgery (SDC) | payer OTHER | END 2019-08-13 10:53 | disposition home or self-care (01) | LOC: ATC 00:08 | DX: L89.219 Pressure ulcer of right hip, unspecified stage (principal) | CPT/HCPCS: 96523; J1642 ==

== ENCOUNTER 2019-08-20 02:01 | Day surgery (SDC) | payer OTHER | END 2019-08-20 23:37 | disposition home or self-care (01) | LOC: WOUND 02:01 | DX: L89.211 Pressure ulcer of right hip, stage 1 (principal); G82.51 Quadriplegia, C1-C4 complete | CPT/HCPCS: G0463 ==

== ENCOUNTER 2019-09-02 15:55 | Observation (INO) | payer OTHER ==
[~2019-09-02] VITALS: Ht 168 cm; Wt 68.0 kg
[2019-09-03] MEDS ORDERED: CITA20 PO (08:48)
[2019-09-03] MEDS ORDERED: GABA300 PO (08:48)
[2019-09-03] MEDS ORDERED: Xanax0.5 MG PO (08:49)
[2019-09-03] MEDS ORDERED: Midodrine HCl10 MG PO (08:50)
[2019-09-03] MEDS ORDERED: Aspir 8181 MG PO ×2 (08:50)
[2019-09-03] MEDS ORDERED: ZOLP10 PO (08:50)
[2019-09-03] MEDS ORDERED: POTCHL20ER PO (08:51)
[2019-09-03] MEDS ORDERED: BACL10 PO (08:51)
[2019-09-03] MEDS ORDERED: FURO20 PO (08:51)
[2019-09-03] MEDS ORDERED: Vitamin D2000 UNIT PO (08:52)
[2019-09-03] MEDS ORDERED: METPHE20 PO (08:53)
[2019-09-03] MEDS ORDERED: Pedi-Dri 100,0060 GM TOP ×2 (08:53)
[2019-09-03] MEDS ORDERED: Norco 10-325 T1 EACH PO ×2 (08:54)
[2019-09-03] MEDS ORDERED: BIEST/PROGESTERONE TOP (08:55)
[2019-09-03] MEDS ORDERED: PROM25 PO (08:55)
[2019-09-03] MEDS ORDERED: IPRATROPIUM 0.02% NEB (08:57)
[2019-09-03] MEDS ORDERED: OMEP20ER PO (08:59)
[2019-09-03] MEDS ORDERED: Atrovent Inha12.9 GM INH ×2 (08:59)
[2019-09-03] MEDS ORDERED: HYDROCODON-ACE1 EAC3 PO (09:00)
[2019-09-03] MEDS ORDERED: BACTRIM DS TAB1 EACH PO (09:00)
[2019-09-05] MEDS ORDERED: ERGO50000 PO (10:50)
[2019-09-05] MEDS ORDERED: POTCHL20ER PO ×2 (10:56)
[2019-09-05] MEDS ORDERED: Hydrocortisone5 MG PO ×2 (10:58)
--- NOTE | 2019-09-05 16:17 | NUR ---
ASSUMED CARE OF PT. PT RESTING QUIETLY. AWAITING POST OP PLAN FROM DR. LEUNG.
--- NOTE | 2019-09-05 17:55 | NUR ---
DUE TO PATIENT'S INABILITY TO HAVE HOME HEALTH AND WOUND VAC AT HOME PATIENT ADMITED TO PCU. BUSINESS SUPPORT LIAISON NOTIFIED FOR ASSISTANCE. RT NOTIFIED OF ADMISSION AND TRANSFER TO ROOM PACU 4. DR. GARNER OFFICE REPORTS WILL HAVE WOUND VAC OVERNIGHTED TO PATIENT'S RESIDENCE. TO BRING IN WOUND VAC TOMARROW AFTER IT IS DELIVERED AND PATIENT WILL HAVE IT PLACED PROIR TO DISCHARGE. PATIENT REMAINS ON HOSPITAL WOUND VAC AT THIS TIME. REPORT GIVEN TO BRAIDED BAND ASSEMBLER AND PATIENT TRANSFERED TO PCU 4.
--- NOTE | 2019-09-05 18:52 | NUR ---
PT AOX4 AND VERY PLEASANT. PT HAS BEEN SETTLED INTO ROOM. IS AT BED SIDE. PT DOINGE WELL, BED PLACED AT LOWEST POSITION. NO DISTESS NOTED AT THIS TIME. WILL CONTINUE TO MONITOR.
--- NOTE | 2019-09-05 20:49 | NUR ---
WOUND VAC CHANGE BELT CUTTER CALLED TO ASSESS BLOOD LEAKING FROM WOUND VAC. WOUND VAC FOUND TO HAVE LARGE BLOOD CLOT PREVENTING VAC FROM SUCTIONING PROPERLY. PRIMARY RN GOT ORDER FROM DR LEUNG TO CHANGE VAC DRSG AT THIS TIME. NEW DRSG PLACED. PATENT SEAL ACHIEVED. SEE WOUND VAC REASSESSMENT DOCUMENTATION
[2019-09-05] MEDS ORDERED: BACL10 PO (21:00)
--- NOTE | 2019-09-06 07:30 | NUR ---
SHIFT SUMMARY PT A&O X4. VSS. MONITOR SHOWS SB, HR 50's. SPO2 > 92% ON HOME VENT W/ HOME VENT SETTINGS. WOUND VAC CHANGED BY PROCEDURE NURSE THIS SHIFT, SEE PREVIOUS NOTE. WOUND VAC PATENT AND DRAINING BLOODY DISCHARGE AFTER WOUND VAC CHANGED. PT C/O R HIP PAIN, PT SPOUSE REPORTS PT NOT NORMALLY ONE TO C/O PAIN. PT MEDICATED PER EMAR/PT REQUEST W/ LITTLE RELIEF. PT ALSO C/O NAUSEA, MEDICATED PER EMAR X2 THIS SHIFT. PT AWAITING HOME WOUND VAC ARRIVAL FOR DISCHARGE HOME. PT SPOUSE & PT REQUESTING HOME HEALTH ASSISTANCE W/ WOUND VAC. SOCIAL SERVICE ORDER PLACED FOR ASSISTANCE. REPORT GIVEN TO DAY SHIFT RN.
--- NOTE | 2019-09-06 07:36 | NUR ---
09/06/19 0736 Edna Flynn VERIFICATIONS: EDIT CHART.
[2019-09-06] MEDS ORDERED: ACET325 PO ×2 (11:16)
[2019-09-06] MEDS ORDERED: BISA10S PR ×2 (11:16)
[2019-09-06] MEDS ORDERED: Colace100 MG PO ×2 (11:17)
[2019-09-06] MEDS ORDERED: ONDA4 PO (11:20)
[2019-09-06] MEDS ORDERED: Florastor250 MG PO ×2 (11:20)
[2019-09-06] MEDS ORDERED: BACTRIM DS TAB1 EACH PO ×2 (11:20)
--- NOTE | 2019-09-06 15:12 | NUR ---
DISCHARGE SUMMARY PT REMAINED AAOX4 THROUGHOUT SHIFT. VSS. PT DENIED ANY C/O CHEST PAIN/PRESSURE OR SOB. HOME VENT IN PLACE VIA TRACH COLLAR, SPO2 MAINTAINED BETWEEN 95-97%. PT C/O RIGHT HIP PAIN ON/OFF THROUGHOUT SHIFT; S/P I&D OF RIGHT HIP; PT MEDICATED FOR PAIN PER EMAR. PT'S HOME WOUND VAC DELIVERED TO HOUSE & BROUGHT INTO ROOM. ENTIRE WOUND VAC DRESSING & CANNISTER CHANGED W/ SECOND RN. HOME HEALTH CARE NURSE TO FOLLOW UP FOR OUTPATIENT WOUND VAC CHANGES. DISCHARGE EDUCATION COMPLETED W/ PT & PT'S . DISCUSSED MED REC & FOLLOW UP INSTRUCTIONS; PT & VERBALIZED UNDERSTANDING. ALL PAPERWORK & BELONGINGS GIVEN TO PT'S . PT DISCHARGED HOME W/ & HOME CARE. TRANSPORTED OFF UNIT VIA WHEELCHAIR IN STABLE CONDITION.
[2019-09-06] MEDS ORDERED: ASCO500 PO ×2 (20:22)
[2019-09-06] MEDS ORDERED: Norco 10-325 T1 EACH PO ×2 (20:23)
[2019-09-06] MEDS ORDERED: FLUC150A PO ×2 (22:13)
[2019-09-06] MEDS ORDERED: ALBU90OI INH ×2 (22:14)
[2019-09-06] MEDS ORDERED: Fludrocortison0.1 MG PO (22:40)
[2019-09-07] MEDS ORDERED: Pedi-Dri 100,0060 GM TOP ×2 (11:35)
[2019-09-07] MEDS ORDERED: ACET325 PO ×2 (11:36)
== END 2019-09-06 14:40 | disposition home health service (06) ==
LOC: SURS 09-05 09:53 → PRE IP 09-05 09:53 → PCU 09-05 09:53 → PRE IP 09-05 11:30 → SURS 09-05 11:30 → PCU 09-05 11:30 → SURS 09-05 17:54 → PCU 09-06 14:40
PROVIDERS: ADMIT Orthopaedic Surgery
PROC: 0JBL0ZZ Excision of Right Upper Leg Subcutaneous Tissue and Fascia, Open Approach (ICD-10-PCS; principal; 2019-09-05 11:30)
DX: S71.001A Unspecified open wound, right hip, initial encounter (principal); L02.415 Cutaneous abscess of right lower limb; F41.9 Anxiety disorder, unspecified; E27.40 Unspecified adrenocortical insufficiency; F32.9 Major depressive disorder, single episode, unspecified; G82.50 Quadriplegia, unspecified; Z99.11 Dependence on respirator [ventilator] status; Z87.891 Personal history of nicotine dependence; Z88.1 Allergy status to other antibiotic agents; Z79.82 Long term (current) use of aspirin; Z79.899 Other long term (current) drug therapy; X58.XXXA Exposure to other specified factors, initial encounter
CPT/HCPCS: 87070; 87071; 87075; 87077; 87186; 87205; 96374; 96375; 96376; A9270-GY; G0378; J0461; J0690; J1100; J1720; J1885; J2250; J2370; J2405; J2704; J3010; J3370; J7050; J7120

== ENCOUNTER 2019-09-06 20:04 | Observation (INO) | payer OTHER ==
[~2019-09-06] VITALS: Ht 167.6 cm; Wt 78.9 kg
[~2019-09-06 20:04] MED LIST changes: +ACET325 PO; +Aspir 8181 MG PO; +Atrovent Inha12.9 GM INH; +BACTRIM DS TAB1 EACH PO; +BIEST/PROGESTERONE TOP; +Colace100 MG PO; +Florastor250 MG PO; +HYDROCODON-ACE1 EAC3 PO; +Hydrocortisone5 MG PO; +IPRATROPIUM 0.02% NEB; +METPHE20 PO; +Midodrine HCl10 MG PO; +ONDA4 PO; +PROM25 PO; +Pedi-Dri 100,0060 GM TOP; +Vitamin D2000 UNIT PO; +Xanax0.5 MG PO
[2019-09-06] MEDS ORDERED: ASCO500 PO ×2 (20:22)
[2019-09-06] MEDS ORDERED: Norco 10-325 T1 EACH PO ×2 (20:23)
[2019-09-06 20:37] LABS: BASOPHILS ABSOLUTE AUTO 0.06 K/mm3 (0.00-0.23); BASOPHILS PERCENT AUTO 1 % (0-2); EOSINOPHILS ABSOLUTE AUTO 0.22 K/mm3 (0.00-0.68); EOSINOPHILS PERCENT AUTO 4 % (0-6); Hematocrit 24.7 % (33.0-51.0); Hemoglobin 7.9 g/dL (11.5-16.0); IMMATURE GRAN ABSOLUTE AUTO 0.02 K/mm3 (0.00-0.10); IMMATURE GRAN PERCENT AUTO 0 % (0-1); LYMPHOCYTES ABSOLUTE AUTO 0.89 K/mm3 (0.84-5.20); LYMPHOCYTES PERCENT AUTO 15 % (21-46); MONOCYTES ABSOLUTE AUTO 0.49 K/mm3 (0.16-1.47); MONOCYTES PERCENT AUTO 8 % (4-13); Mean Corpuscular HGB 28.9 pg (26.0-34.0); Mean Corpuscular Volume 91 fL (80-100); Mean Platelet Volume 9.9 fL (9.1-12.4); NEUTROPHILS ABSOLUTE AUTO 4.14 K/mm3 (1.96-9.15); NEUTROPHILS PERCENT AUTO 71 % (41-73); Platelet Count 262 K/mm3 (150-400); RDW Coefficient Variation 14.2 % (11.7-14.2); RDW Standard Deviation 46.7 fL (35.1-46.3); Red Blood Cell Count 2.73 M/mm3 (3.80-5.20); White Blood Cell Count 5.82 K/mm3 (4.00-11.30)
[2019-09-06 21:00] LABS: International Normalized Ratio 1.03
[2019-09-06 21:10] LABS: Alanine Aminotransfer (ALT/SGP 12 U/L (12-78); Albumin, Blood 2.9 g/dL (3.4-5.0); Albumin/Globulin Ratio 0.9 (0.8-1.8); Alk Phos 73 U/L (50-136); Anion Gap 4 mmol/L (6-16); Aspartate Aminotrans (AST/SGOT 12 U/L (12-37); Bilirubin, Total 0.3 mg/dL (0.1-1.0); Blood Urea Nitrogen 7 mg/dL (8-24); Bun/Creatinine Ratio Unable to Calculate (12.0-20.0); CO2, Blood 25 mmol/L (21-32); Calcium, Blood 7.8 mg/dL (8.5-10.1); Chloride, Blood 95 mmol/L (98-108); Creatinine, Blood <0.14 mg/dL (0.40-1.00); Globulin, Blood 3.2 g/dL (2.2-4.0); Glomerular Filtration Rate Unable to Calculate (60-); Glucose, Blood 107 mg/dL (70-99); Potassium, Blood 3.6 mmol/L (3.5-5.5); Sodium, Blood 124 mmol/L (136-145); Total Protein, Blood 6.1 g/dL (6.4-8.2)
[2019-09-06] MEDS ORDERED: FLUC150A PO ×2 (22:13)
[2019-09-06] MEDS ORDERED: ALBU90OI INH ×2 (22:14)
[2019-09-06] MEDS ORDERED: Fludrocortison0.1 MG PO (22:40)
--- NOTE | 2019-09-07 06:15 | NUR ---
SHIFT SUMMARY. PT IS ANXIOUS AT TIMES, , LESTER, WHO IS HER MAIN CAREGIVER, AT BEDSIDE AT ALL TIMES. PT IS QUADRAPLEGIC, ABLE TO MAKE NEEDS KNOWN. PT HAS TRACHEOSTOMY AND HOME VENTILATOR. HRR, NO C/O CHEST PAIN. LUNG SOUNDS DIMINISHED AT BASES, NO SHORTNESS OF BREATH NOTED. ABDOMEN ROUND, SOFT, NON TENDER WITH BOWEL TONES NOTED X4 QUADS. PT RECEIVED 2 UNITS OF PRBC WITHOUT COMPLICATION. IV INFUSED WELL WITH NO REDNESS, TENDERNESS OR SWELLING NOTED. SKIN INTACT, SUPRAPUBIC CATHETER DRAINING CLEAR YELLOW URINE.
[2019-09-07 06:28] LABS: BASOPHILS ABSOLUTE AUTO 0.06 K/mm3 (0.00-0.23); BASOPHILS PERCENT AUTO 1 % (0-2); EOSINOPHILS ABSOLUTE AUTO 0.49 K/mm3 (0.00-0.68); EOSINOPHILS PERCENT AUTO 5 % (0-6); Hemoglobin 9.7 g/dL (11.5-16.0); IMMATURE GRAN ABSOLUTE AUTO 0.04 K/mm3 (0.00-0.10); IMMATURE GRAN PERCENT AUTO 0 % (0-1); LYMPHOCYTES PERCENT AUTO 14 % (21-46); MONOCYTES PERCENT AUTO 7 % (4-13); Mean Corpuscular HGB 28.4 pg (26.0-34.0); Mean Corpuscular HGB Conc 33.4 g/dL (31.5-36.5); Mean Platelet Volume 10.1 fL (9.1-12.4); NEUTROPHILS ABSOLUTE AUTO 7.06 K/mm3 (1.96-9.15); NEUTROPHILS PERCENT AUTO 72 % (41-73); Platelet Count 241 K/mm3 (150-400); RDW Coefficient Variation 16.7 % (11.7-14.2); RDW Standard Deviation 52.1 fL (35.1-46.3); Red Blood Cell Count 3.41 M/mm3 (3.80-5.20); White Blood Cell Count 9.75 K/mm3 (4.00-11.30)
[2019-09-07 06:36] LABS: Mean Corpuscular Volume 85 fL (80-100)
[2019-09-07 07:06] LABS: Anion Gap 9 mmol/L (6-16); Blood Urea Nitrogen 7 mg/dL (8-24); Bun/Creatinine Ratio 44.9 (12.0-20.0); CO2, Blood 22 mmol/L (21-32); Calcium, Blood 7.9 mg/dL (8.5-10.1); Chloride, Blood 93 mmol/L (98-108); Creatinine, Blood 0.16 mg/dL (0.40-1.00); Glomerular Filtration Rate >60 (60-); Glucose, Blood 85 mg/dL (70-99); Potassium, Blood 3.7 mmol/L (3.5-5.5); Sodium, Blood 124 mmol/L (136-145)
--- NOTE | 2019-09-07 07:19 | NUR ---
UNRESOLVED PAIN - 0630: PT C/O 03/05 RIGHT HIP PAIN, DR. CONLEY CALLED, ORDERS FOR FENTANYL 25MCG IV Q4H PRN RECEIVED. PT MEDICATED WITH ZOFRAN FOR NAUSEA, BACLOFEN AND FENTANYL FOR PAIN.
--- NOTE | 2019-09-07 08:26 | NUR ---
PT C/O FEELING SOB & REPORTS THAT HER BP FEELS LIKE IT'S DROPPING. BP READING 76/43; PT WAS GIVEN HER SCHEDULED DOSE OF 10MG MIDODRINE ABOUT 35 MIN AGO. SPOKE W/ DR. PHAN VIA TELEPHONE & MADE HIM AWARE. RECEIVED NEW TELEPHONE ORDER FOR 500 CC NS BOLUS X1; RECEIVED ORDER TO ADMINISTER EXTRA 10MG DOSE OF MIDODRINE PRN FOR SBP<95 AFTER BOULUS FINISHES. NS BOLUS HUNG AT THIS TIME. WILL CONTINUE TO MONITOR CLOSELY. AT BEDSIDE.
--- NOTE | 2019-09-07 08:54 | NUR ---
PT STILL C/O FEELING SOB, VERY ANXIOUS. PULSE OX STABLE BETWEEN 97-98%. PT RECEIVED PO STEROIDS & PO XANAX EARLIER THIS MORNING. SPOKE W/ DR. PHAN VIA TELEPHONE AGAIN & DISCUSSED PT STILL SOB. RECEIVED NEW TELEPHONE ORDERS FOR 60MG SOLUMEDROL IVP X1 DOSE & BREATHING TX. MADE MD AWARE THAT BP IS STARTING TO IMPROVE W/ NS BOLUS, CURRENTLY 88/48. WILL CONTINUE TO MONITOR.
--- NOTE | 2019-09-07 09:35 | NUR ---
BP IMPROVED TO 137/74 AFTER ADMINISTRATION OF NS BOLUS. PT REPORTS RELIEF OF SOB AFTER ADMINISTRATION OF STEROIDS & BREATHING TX. WILL CONTINUE TO MONITOR.
[2019-09-07] MEDS ORDERED: Pedi-Dri 100,0060 GM TOP ×2 (11:35)
[2019-09-07] MEDS ORDERED: ACET325 PO ×2 (11:36)
--- NOTE | 2019-09-07 13:10 | NUR ---
DISCHARGE SUMMARY NO ACUTE CHANGES THROUGHOUT SHIFT FROM PREVIOUS NOTES. VSS AT THIS TIME. PT WAS MEDICATED FOR INTERMITTENT PAIN & NAUSEA THROUGHOUT SHIFT. NO MORE C/O SOB REPORTED. PT DENIES ANY C/O CHEST PAIN/PRESSURE. HGB CAME UP TO 9.7 TODAY AFTER RECEIVING 2 UNITS OF PRBCS OVERNIGHT. RIGHT HIP WOUND DRESSING REMAINED C/D/I W/ OUT COMPLICATIONS. SURGEON CAME BY TO CHANGE DRESSING & TEACH HOW TO CHANGE AT HOME; 5 DAYS WORTH OF DRESSING SUPPLIES PROVIDED FOR PT & PER DR REQUEST. IV & TELE REMOVED. DISCHARGE EDUCATION COMPLETED W/ PT & PT'S . DISCUSSED MED REC & FOLLOW UP INSTRUCTIONS; BOTH ARE VERY KNOWLEDGABLE ABOUT PT CONDITION; ABLE TO TEACH BACK INFORMATION. PT DISCHARGED HOME W/ & HOME CARE SERVICES. ALL PAPERWORK & BELONGINGS GIVEN TO . PT TRANSPORTED OFF UNIT VIA WHEELCHAIR IN STABLE CONDITION W/ HOME VENT IN PLACE.
== END 2019-09-07 13:10 | disposition home health service (06) ==
LOC: ER 20:04 → PCU 20:05 → ERHOLD 20:05 → PCU 09-07 00:50
PROVIDERS: Emergency Medicine; ADMIT Internal Medicine
DX: D62 Acute posthemorrhagic anemia (principal); G82.50 Quadriplegia, unspecified; J96.10 Chronic respiratory failure, unspecified whether with hypoxia or hypercapnia; F41.9 Anxiety disorder, unspecified; F32.9 Major depressive disorder, single episode, unspecified; G89.29 Other chronic pain; Z93.0 Tracheostomy status; Z87.891 Personal history of nicotine dependence; Z79.82 Long term (current) use of aspirin; Z79.899 Other long term (current) drug therapy; Z88.1 Allergy status to other antibiotic agents
CPT/HCPCS: 36415; 36430; 80048; 80053; 85025; 85610; 85730; 86850; 86900; 86901; 86923; 93005; 93010; 94640; 94762; 96374; 96375; 96376; 99285-25; G0378; J1940; J2405; J2930; J3010; J7030; P9016

== ENCOUNTER 2019-09-13 00:18 | Day surgery (SDC) | payer OTHER ==
[~2019-09-13 00:18] MED LIST changes: +ALBU90OI INH
[2019-09-13] MEDS ORDERED: BACTRIM DS TAB1 EACH PO (10:08)
== END 2019-09-13 22:46 | disposition home or self-care (01) ==
LOC: WOUND 00:18
DX: L89.211 Pressure ulcer of right hip, stage 1 (principal); G82.51 Quadriplegia, C1-C4 complete
CPT/HCPCS: J1100; J1720; J1885; J2370; J2405; J2704; J3010

== ENCOUNTER 2019-09-13 00:41 | Day surgery (SDC) | payer OTHER ==
[2019-09-13 09:43] LABS: BASOPHILS ABSOLUTE AUTO 0.05 K/mm3 (0.00-0.23); BASOPHILS PERCENT AUTO 1 % (0-2); EOSINOPHILS PERCENT AUTO 7 % (0-6); Hematocrit 28.7 % (33.0-51.0); Hemoglobin 9.1 g/dL (11.5-16.0); IMMATURE GRAN ABSOLUTE AUTO 0.03 K/mm3 (0.00-0.10); IMMATURE GRAN PERCENT AUTO 0 % (0-1); LYMPHOCYTES ABSOLUTE AUTO 0.94 K/mm3 (0.84-5.20); LYMPHOCYTES PERCENT AUTO 13 % (21-46); MONOCYTES ABSOLUTE AUTO 0.54 K/mm3 (0.16-1.47); MONOCYTES PERCENT AUTO 8 % (4-13); Mean Corpuscular HGB 28.5 pg (26.0-34.0); Mean Corpuscular HGB Conc 31.7 g/dL (31.5-36.5); Mean Platelet Volume 10.5 fL (9.1-12.4); NEUTROPHILS ABSOLUTE AUTO 5.08 K/mm3 (1.96-9.15); NEUTROPHILS PERCENT AUTO 71 % (41-73); Platelet Count 281 K/mm3 (150-400); RDW Coefficient Variation 15.5 % (11.7-14.2); RDW Standard Deviation 51.2 fL (35.1-46.3); Red Blood Cell Count 3.19 M/mm3 (3.80-5.20); White Blood Cell Count 7.14 K/mm3 (4.00-11.30)
[2019-09-13 09:49] LABS: Mean Corpuscular Volume 90 fL (80-100)
[2019-09-13 10:05] LABS: Alanine Aminotransfer (ALT/SGP 13 U/L (12-78); Albumin, Blood 3.2 g/dL (3.4-5.0); Albumin/Globulin Ratio 0.9 (0.8-1.8); Alk Phos 83 U/L (50-136); Anion Gap 8 mmol/L (6-16); Aspartate Aminotrans (AST/SGOT 7 U/L (12-37); Bilirubin, Total 0.4 mg/dL (0.1-1.0); Blood Urea Nitrogen 9 mg/dL (8-24); Bun/Creatinine Ratio 54.9 (12.0-20.0); CO2, Blood 23 mmol/L (21-32); Calcium, Blood 8.4 mg/dL (8.5-10.1); Chloride, Blood 101 mmol/L (98-108); Creatinine, Blood 0.16 mg/dL (0.40-1.00); Globulin, Blood 3.4 g/dL (2.2-4.0); Glomerular Filtration Rate >60 (60-); Glucose, Blood 114 mg/dL (70-99); Potassium, Blood 4.9 mmol/L (3.5-5.5); Sodium, Blood 132 mmol/L (136-145); Total Protein, Blood 6.6 g/dL (6.4-8.2)
[2019-09-13] MEDS ORDERED: BACTRIM DS TAB1 EACH PO (10:08)
[2019-09-16 06:00] LABS: F013-IGE PEANUT 0.22 kU/L (Class 0/I); F017-IGE HAZELNUT (FILBERT) 0.13 kU/L (Class 0/I); F020-IGE ALMOND 0.46 kU/L (Class I); F201-IGE PECAN NUT 0.21 kU/L (Class 0/I); F202-IGE CASHEW NUT 1.72 kU/L (Class III); F256-IGE WALNUT 0.23 kU/L (Class 0/I)
== END 2019-09-13 08:51 | disposition home or self-care (01) ==
LOC: ATC 00:41
PROVIDERS: Family Medicine
DX: D64.89 Other specified anemias (principal); L89.219 Pressure ulcer of right hip, unspecified stage; G82.50 Quadriplegia, unspecified; Z91.018 Allergy to other foods
CPT/HCPCS: 36591; 80053; 85025; 86003; J1642

== ENCOUNTER 2019-09-26 00:22 | Day surgery (SDC) | payer OTHER | END 2019-09-26 23:50 | disposition home or self-care (01) | LOC: WOUND 00:22 | DX: L89.211 Pressure ulcer of right hip, stage 1 (principal); G82.51 Quadriplegia, C1-C4 complete; E27.40 Unspecified adrenocortical insufficiency; N31.9 Neuromuscular dysfunction of bladder, unspecified; Z79.82 Long term (current) use of aspirin; Z79.899 Other long term (current) drug therapy; Z99.11 Dependence on respirator [ventilator] status ==

== ENCOUNTER 2019-10-09 00:20 | Day surgery (SDC) | payer OTHER | END 2019-10-09 13:45 | disposition home or self-care (01) | LOC: ATC 00:20 | DX: L89.219 Pressure ulcer of right hip, unspecified stage (principal); D64.89 Other specified anemias; Z91.018 Allergy to other foods | CPT/HCPCS: 96523; J1642 ==

== ENCOUNTER 2019-10-09 00:27 | Day surgery (SDC) | payer OTHER | END 2019-10-09 22:38 | disposition home or self-care (01) | LOC: WOUND 00:27 | DX: L89.211 Pressure ulcer of right hip, stage 1 (principal); G82.51 Quadriplegia, C1-C4 complete ==

== ENCOUNTER 2019-10-22 00:32 | Day surgery (SDC) | payer OTHER | END 2019-10-22 22:34 | disposition home or self-care (01) | LOC: WOUND 00:32 | DX: L89.211 Pressure ulcer of right hip, stage 1 (principal); G82.51 Quadriplegia, C1-C4 complete ==

== ENCOUNTER 2019-10-29 00:14 | Day surgery (SDC) | payer OTHER | END 2019-10-29 22:34 | disposition home or self-care (01) | LOC: WOUND 00:14 | DX: L89.211 Pressure ulcer of right hip, stage 1 (principal); G82.51 Quadriplegia, C1-C4 complete ==

== ENCOUNTER 2019-11-12 00:08 | Day surgery (SDC) | payer OTHER ==
[2019-11-12 15:17] LABS: BASOPHILS ABSOLUTE AUTO 0.11 K/mm3 (0.00-0.23); BASOPHILS PERCENT AUTO 1 % (0-2); EOSINOPHILS ABSOLUTE AUTO 0.82 K/mm3 (0.00-0.68); EOSINOPHILS PERCENT AUTO 9 % (0-6); Hematocrit 32.4 % (33.0-51.0); Hemoglobin 10.3 g/dL (11.5-16.0); IMMATURE GRAN ABSOLUTE AUTO 0.03 K/mm3 (0.00-0.10); IMMATURE GRAN PERCENT AUTO 0 % (0-1); LYMPHOCYTES PERCENT AUTO 13 % (21-46); MONOCYTES ABSOLUTE AUTO 0.76 K/mm3 (0.16-1.47); MONOCYTES PERCENT AUTO 8 % (4-13); Mean Corpuscular HGB 28.8 pg (26.0-34.0); Mean Corpuscular HGB Conc 31.8 g/dL (31.5-36.5); Mean Corpuscular Volume 91 fL (80-100); Mean Platelet Volume 10.3 fL (9.1-12.4); NEUTROPHILS ABSOLUTE AUTO 6.65 K/mm3 (1.96-9.15); NEUTROPHILS PERCENT AUTO 69 % (41-73); Platelet Count 333 K/mm3 (150-400); RDW Standard Deviation 53.1 fL (35.1-46.3); Red Blood Cell Count 3.58 M/mm3 (3.80-5.20); White Blood Cell Count 9.67 K/mm3 (4.00-11.30)
[2019-11-12 16:01] LABS: Anion Gap 6 mmol/L (6-16); Blood Urea Nitrogen 8 mg/dL (8-24); Bun/Creatinine Ratio 49.7 (12.0-20.0); CO2, Blood 25 mmol/L (21-32); Calcium, Blood 8.4 mg/dL (8.5-10.1); Chloride, Blood 102 mmol/L (98-108); Creatinine, Blood 0.16 mg/dL (0.40-1.00); Glomerular Filtration Rate >60 (60-); Glucose, Blood 89 mg/dL (70-99); Potassium, Blood 4.7 mmol/L (3.5-5.5); Sodium, Blood 133 mmol/L (136-145)
== END 2019-11-12 14:55 | disposition home or self-care (01) ==
PROVIDERS: Family Medicine
DX: D64.89 Other specified anemias (principal); Z91.018 Allergy to other foods

== ENCOUNTER → 2019-11-12 | Outpatient (CLI) | payer OTHER ==
[2019-11-12 15:54] LABS: Source, Urine Clean Catch
[2019-11-12 17:41] LABS: Bilirubin, Urine Neg (Neg); Blood, Urine 3+ (Neg); Glucose Qualitative, Urine Neg (Neg); Ketones, Urine Neg (Neg); Leukocyte Esterase, Urine 3+ (Neg); Nitrite, Urine Neg (Neg); Protein, Urine 1+ (Neg); Specific Gravity, Urine 1.015 (1.003-1.022); Urobilinogen, Urine NORM (Normal)
[2019-11-12 18:31] LABS: Appearance, Urine Hazy (Clear); Color, Urine Pale Yellow (P-Yellow)
[2019-11-12 18:32] LABS: White Blood Cells, Urine 50-100 /hpf (0-5)
[2019-11-12 18:33] LABS: Bacteria Many /hpf; Red Blood Cells, Urine 25-50 /hpf (0-2); Squamous Epithelial Cells Rare /hpf (Few)
== END | disposition home or self-care (01) ==
LOC: LAB 15:49 → LAB SHORT 15:49 → LAB FUT 11-03 07:40
PROVIDERS: Family Medicine
DX: R50.9 Fever, unspecified (principal); D64.9 Anemia, unspecified; Z22.8 Carrier of other infectious diseases
CPT/HCPCS: 81001; 87070; 87077; 87086; 87186; 87205

== ENCOUNTER 2019-11-15 07:44 | Day surgery (SDC) | payer OTHER | END 2019-11-15 23:07 | disposition home or self-care (01) | LOC: WOUND 07:44 | DX: L89.213 Pressure ulcer of right hip, stage 3 (principal); G82.51 Quadriplegia, C1-C4 complete | CPT/HCPCS: G0463 ==

== ENCOUNTER 2019-11-19 00:11 | Day surgery (SDC) | payer OTHER | END 2019-11-19 22:49 | disposition home or self-care (01) | LOC: WOUND 00:11 | DX: L89.213 Pressure ulcer of right hip, stage 3 (principal); G82.51 Quadriplegia, C1-C4 complete ==

== ENCOUNTER 2019-11-26 00:33 | Day surgery (SDC) | payer OTHER | END 2019-11-26 22:35 | disposition home or self-care (01) | LOC: WOUND 00:33 | DX: L89.213 Pressure ulcer of right hip, stage 3 (principal); G82.51 Quadriplegia, C1-C4 complete ==

== ENCOUNTER 2019-12-03 00:14 | Day surgery (SDC) | payer OTHER | END 2019-12-03 23:00 | disposition home or self-care (01) | LOC: WOUND 00:14 | DX: L89.213 Pressure ulcer of right hip, stage 3 (principal); G82.51 Quadriplegia, C1-C4 complete | CPT/HCPCS: 87070; 87075; 87205; G0463 ==

== ENCOUNTER 2019-12-10 00:30 | Day surgery (SDC) | payer OTHER | END 2019-12-10 22:35 | disposition home or self-care (01) | LOC: WOUND 00:30 | DX: L89.213 Pressure ulcer of right hip, stage 3 (principal); G82.51 Quadriplegia, C1-C4 complete ==

== ENCOUNTER 2019-12-12 00:18 | Day surgery (SDC) | payer OTHER | END 2019-12-12 23:09 | disposition home or self-care (01) | LOC: WOUND 00:18 | DX: L89.213 Pressure ulcer of right hip, stage 3 (principal); G82.51 Quadriplegia, C1-C4 complete ==

== ENCOUNTER 2019-12-16 00:12 | Day surgery (SDC) | payer OTHER | END 2019-12-16 11:05 | disposition home or self-care (01) | LOC: ATC 00:12 | DX: D64.89 Other specified anemias (principal); Z91.018 Allergy to other foods; Z79.52 Long term (current) use of systemic steroids | CPT/HCPCS: 96523; J1642 ==

== ENCOUNTER 2019-12-16 00:35 | Day surgery (SDC) | payer OTHER | END 2019-12-16 22:36 | disposition home or self-care (01) | LOC: WOUND 00:35 | DX: L89.213 Pressure ulcer of right hip, stage 3 (principal); G82.51 Quadriplegia, C1-C4 complete ==

== ENCOUNTER 2019-12-31 00:07 | Day surgery (SDC) | payer OTHER ==
[2020-01-27] MEDS ORDERED: ASPI81CH PO (11:19)
[2020-01-27] MEDS ORDERED: Fludrocortison0.1 MG PO (11:19)
[2020-01-27] MEDS ORDERED: Midodrine HCl10 MG PO (11:20)
[2020-01-27] MEDS ORDERED: GABA300 PO (11:20)
[2020-01-27] MEDS ORDERED: K-Dur 20 meq T20 MEQ PO (11:20)
[2020-01-27] MEDS ORDERED: OMEP20ER PO (11:20)
[2020-01-27] MEDS ORDERED: CRINONE1.125 GM VG (11:21)
[2020-01-27] MEDS ORDERED: METPHE20CR PO (11:21)
[2020-01-27] MEDS ORDERED: HYDCOR10 PO (11:22)
[2020-01-27] MEDS ORDERED: CITA20 PO (11:22)
[2020-01-27] MEDS ORDERED: VITAMIN D250000 UNIT PO (11:23)
[2020-01-27] MEDS ORDERED: ALPRAZOLAM0.5 MG PO (11:23)
[2020-01-27] MEDS ORDERED: ZOLP10 PO (11:24)
[2020-01-27] MEDS ORDERED: BACL10 PO (11:24)
[2020-01-27] MEDS ORDERED: FURO20 PO (11:24)
[2020-01-27] MEDS ORDERED: HYDACE10B PO (11:25)
[2020-01-27] MEDS ORDERED: C COMPLEX1000 MG PO (11:25)
[2020-01-27] MEDS ORDERED: Bactrim Ds Tab1 EACH PO (12:36)
== END 2019-12-31 22:37 | disposition home or self-care (01) ==
LOC: WOUND 00:07
DX: L89.219 Pressure ulcer of right hip, unspecified stage (principal); G82.50 Quadriplegia, unspecified
CPT/HCPCS: G0463

== ENCOUNTER → 2020-01-15 | Outpatient (CLI) | payer OTHER ==
[~2020-01-15] MED LIST changes: +ALPRAZOLAM0.5 MG PO; +C COMPLEX1000 MG PO; +CRINONE1.125 GM VG; +HYDACE10B PO; +K-Dur 20 meq T20 MEQ PO; +METPHE20CR PO; +VITAMIN D250000 UNIT PO
[2020-01-15 12:04] LABS: Appearance, Urine Cloudy (Clear); Bilirubin, Urine Neg (Neg); Blood, Urine 3+ (Neg); Color, Urine Yellow (P-Yellow); Glucose Qualitative, Urine Neg (Neg); Ketones, Urine Neg (Neg); Leukocyte Esterase, Urine 3+ (Neg); Nitrite, Urine Neg (Neg); Protein, Urine Neg (Neg); Specific Gravity, Urine 1.005 (1.003-1.022); Urobilinogen, Urine NORM (Normal)
[2020-01-15 12:29] LABS: White Blood Cells, Urine TNTC /hpf (0-5)
[2020-01-15 12:30] LABS: Bacteria Many /hpf; Red Blood Cells, Urine TNTC /hpf (0-2); Squamous Epithelial Cells Few /hpf (Few)
== END | disposition home or self-care (01) ==
LOC: LAB SHORT 11:58 → LAB 11:58
PROVIDERS: Family Medicine
DX: R50.9 Fever, unspecified (principal)
CPT/HCPCS: 81001; 87086

== ENCOUNTER 2020-03-25 00:16 | Day surgery (SDC) | payer OTHER | END 2020-03-25 10:17 | disposition home or self-care (01) | LOC: ATC 00:16 | DX: L89.219 Pressure ulcer of right hip, unspecified stage (principal) | CPT/HCPCS: 96523; J1642 ==

== ENCOUNTER 2020-04-28 02:13 | Day surgery (SDC) | payer OTHER | END 2020-04-28 11:10 | disposition home or self-care (01) | LOC: ATC 02:13 | DX: E87.1 Hypo-osmolality and hyponatremia (principal) | CPT/HCPCS: 96523; J1642 ==

== ENCOUNTER → 2020-05-18 | Outpatient (CLI) | payer OTHER ==
[~2020-05-18] MED LIST changes: +SULFAMETHOXAZO1 EAC1 PO
== END | disposition home or self-care (01) ==
LOC: PLD 15:15 → LAB SHORT 15:15
DX: R05 Cough (principal)
CPT/HCPCS: 87070; 87077; 87186; 87205

== ENCOUNTER 2020-05-26 12:21 | Day surgery (SDC) | payer OTHER ==
[~2020-05-26 12:21] MED LIST changes: -SULFAMETHOXAZO1 EAC1 PO
[2020-05-26] MEDS ORDERED: CEFP200 PO (15:06)
[2020-05-26] MEDS ORDERED: SULFAMETHOXAZO1 EAC1 PO (15:08)
== END 2020-05-26 15:12 | disposition home or self-care (01) ==
LOC: ATC 12:21
DX: Z45.2 Encounter for adjustment and management of vascular access device (principal); E87.1 Hypo-osmolality and hyponatremia; G82.50 Quadriplegia, unspecified; N31.9 Neuromuscular dysfunction of bladder, unspecified; Z88.1 Allergy status to other antibiotic agents; Z79.82 Long term (current) use of aspirin; Z99.11 Dependence on respirator [ventilator] status
CPT/HCPCS: 96523; J1642

== ENCOUNTER 2020-07-10 02:00 | Day surgery (SDC) | payer OTHER ==
[~2020-07-10 02:00] MED LIST changes: +SULFAMETHOXAZO1 EAC1 PO
[2020-07-10 13:15] LABS: Anion Gap 9 mmol/L (6-16); Blood Urea Nitrogen 2 mg/dL (8-24); Bun/Creatinine Ratio Unable to Calculate (12.0-20.0); CO2, Blood 22 mmol/L (21-32); Chloride, Blood 99 mmol/L (98-108); Creatinine, Blood <0.14 mg/dL (0.40-1.00); Glomerular Filtration Rate Unable to Calculate (60-); Glucose, Blood 74 mg/dL (70-99); Potassium, Blood 3.8 mmol/L (3.5-5.5); Sodium, Blood 130 mmol/L (136-145)
[2020-07-11] MEDS ORDERED: CEPH500 PO (19:06)
== END 2020-07-10 10:59 | disposition home or self-care (01) ==
LOC: ATC 02:00
PROVIDERS: Internal Medicine Endocrinology, Diabetes & Metabolism
DX: I95.0 Idiopathic hypotension (principal); Z45.2 Encounter for adjustment and management of vascular access device; G82.50 Quadriplegia, unspecified; Z99.11 Dependence on respirator [ventilator] status; N31.9 Neuromuscular dysfunction of bladder, unspecified; Z79.01 Long term (current) use of anticoagulants; Z79.82 Long term (current) use of aspirin; Z79.899 Other long term (current) drug therapy; Z88.1 Allergy status to other antibiotic agents
CPT/HCPCS: 36591; 80048; J1642

== ENCOUNTER 2020-07-11 17:02 | Emergency (ER) | payer OTHER ==
[~2020-07-11] VITALS: Ht 167.6 cm; Wt 68.0 kg
[2020-07-11 18:29] LABS: Source, Urine Catheter
[2020-07-11 18:34] LABS: Appearance, Urine Clear (Clear); Bilirubin, Urine Neg (Neg); Blood, Urine 5+ (Neg); Color, Urine Yellow (P-Yellow); Glucose Qualitative, Urine Neg (Neg); Ketones, Urine Neg (Neg); Leukocyte Esterase, Urine 3+ (Neg); Nitrite, Urine Neg (Neg); Protein, Urine 1+ (Neg); Specific Gravity, Urine 1.005 (1.003-1.022); Urobilinogen, Urine NORM (Normal)
[2020-07-11 18:48] LABS: White Blood Cells, Urine 25-50 /hpf (0-5)
[2020-07-11 18:49] LABS: Bacteria Many /hpf; Squamous Epithelial Cells Not Seen /hpf (Few)
[2020-07-11] MEDS ORDERED: CEPH500 PO (19:06)
== END 2020-07-11 19:45 | disposition home or self-care (01) ==
LOC: ER 17:02
PROVIDERS: Physician Assistant
DX: N39.0 Urinary tract infection, site not specified (principal); Z79.82 Long term (current) use of aspirin; Z79.899 Other long term (current) drug therapy; Z87.891 Personal history of nicotine dependence
CPT/HCPCS: 81001; 87077; 87086; 87186; 96372; 99283-25; A9270; J0696

== ENCOUNTER → 2020-08-08 | Outpatient (CLI) | payer OTHER ==
[~2020-08-08] MED LIST changes: +CEFD300 PO
== END ==
LOC: LAB SHORT 13:47 → PLD 13:47
DX: R05 Cough (principal)
CPT/HCPCS: 87070; 87077; 87186; 87205

== ENCOUNTER 2020-08-14 12:00 | Day surgery (SDC) | payer OTHER ==
[~2020-08-14 12:00] MED LIST changes: -CEFD300 PO
[2020-08-14] MEDS ORDERED: Tazicef1 G1 IV (14:30)
== END 2020-08-14 23:59 | disposition home or self-care (01) ==
LOC: ATC 12:00
DX: L89.214 Pressure ulcer of right hip, stage 4 (principal); G82.51 Quadriplegia, C1-C4 complete
CPT/HCPCS: 96523; J1642

== ENCOUNTER 2020-08-21 00:44 | Day surgery (SDC) | payer OTHER | END 2020-08-21 15:08 | disposition home or self-care (01) | LOC: ATC 00:44 | DX: Z45.2 Encounter for adjustment and management of vascular access device (principal); I95.0 Idiopathic hypotension; G82.51 Quadriplegia, C1-C4 complete; N31.9 Neuromuscular dysfunction of bladder, unspecified | CPT/HCPCS: 96523; J1642 ==

== ENCOUNTER 2020-08-27 00:04 | Day surgery (SDC) | payer OTHER | END 2020-08-27 13:40 | disposition home or self-care (01) | LOC: ATC 00:04 | DX: L89.213 Pressure ulcer of right hip, stage 3 (principal); G82.51 Quadriplegia, C1-C4 complete; E27.40 Unspecified adrenocortical insufficiency; N31.9 Neuromuscular dysfunction of bladder, unspecified; Z99.3 Dependence on wheelchair; I95.0 Idiopathic hypotension; Z79.82 Long term (current) use of aspirin; Z99.11 Dependence on respirator [ventilator] status | CPT/HCPCS: 99211; J1642 ==

== ENCOUNTER 2020-09-30 00:15 | Day surgery (SDC) | payer OTHER | END 2020-09-30 14:36 | disposition home or self-care (01) | LOC: ATC 00:15 | DX: Z45.2 Encounter for adjustment and management of vascular access device (principal); L89.213 Pressure ulcer of right hip, stage 3; G82.52 Quadriplegia, C1-C4 incomplete; S14.15 Other incomplete lesions of cervical spinal cord; E27.40 Unspecified adrenocortical insufficiency; N31.9 Neuromuscular dysfunction of bladder, unspecified; Z99.11 Dependence on respirator [ventilator] status | CPT/HCPCS: 36591; J1642 ==

== ENCOUNTER 2020-11-03 00:45 | Day surgery (SDC) | payer OTHER | END 2020-11-03 11:08 | disposition home or self-care (01) | LOC: ATC 00:45 | DX: Z45.2 Encounter for adjustment and management of vascular access device (principal); L89.213 Pressure ulcer of right hip, stage 3; G82.51 Quadriplegia, C1-C4 complete | CPT/HCPCS: 96523; J1642 ==

== ENCOUNTER 2020-12-01 02:29 | Day surgery (SDC) | payer OTHER | END 2020-12-01 11:08 | disposition home or self-care (01) | LOC: ATC 02:29 | DX: Z45.2 Encounter for adjustment and management of vascular access device (principal); L89.213 Pressure ulcer of right hip, stage 3; G82.51 Quadriplegia, C1-C4 complete; S14.102S Unspecified injury at C2 level of cervical spinal cord, sequela; N31.9 Neuromuscular dysfunction of bladder, unspecified; E27.40 Unspecified adrenocortical insufficiency; Z99.3 Dependence on wheelchair; Z99.11 Dependence on respirator [ventilator] status | CPT/HCPCS: 96523; J1642 ==

== ENCOUNTER 2020-12-05 18:47 | Emergency (ER) | payer OTHER ==
[~2020-12-05] VITALS: Ht 167.6 cm; Wt 68.0 kg
[2020-12-05 20:44] LABS: Source, Urine Catheter
[2020-12-05 20:45] LABS: BASOPHILS ABSOLUTE AUTO 0.06 K/mm3 (0.00-0.23); BASOPHILS PERCENT AUTO 1 % (0-2); EOSINOPHILS ABSOLUTE AUTO 0.45 K/mm3 (0.00-0.68); EOSINOPHILS PERCENT AUTO 5 % (0-6); Hematocrit 35.2 % (33.0-51.0); Hemoglobin 11.7 g/dL (11.5-16.0); IMMATURE GRAN ABSOLUTE AUTO 0.03 K/mm3 (0.00-0.10); IMMATURE GRAN PERCENT AUTO 0 % (0-1); LYMPHOCYTES ABSOLUTE AUTO 1.47 K/mm3 (0.84-5.20); LYMPHOCYTES PERCENT AUTO 16 % (21-46); MONOCYTES ABSOLUTE AUTO 0.47 K/mm3 (0.16-1.47); MONOCYTES PERCENT AUTO 5 % (4-13); Mean Corpuscular HGB Conc 33.2 g/dL (31.5-36.5); Mean Corpuscular Volume 90 fL (80-100); Mean Platelet Volume 9.3 fL (9.1-12.4); NEUTROPHILS ABSOLUTE AUTO 6.49 K/mm3 (1.96-9.15); NEUTROPHILS PERCENT AUTO 72 % (41-73); Platelet Count 318 K/mm3 (150-400); RDW Coefficient Variation 14.7 % (11.7-14.2); White Blood Cell Count 8.97 K/mm3 (4.00-11.30)
[2020-12-05 20:46] LABS: Bilirubin, Urine Neg (Neg); Blood, Urine 5+ (Neg); Glucose Qualitative, Urine Neg (Neg); Ketones, Urine Neg (Neg); Leukocyte Esterase, Urine 3+ (Neg); Nitrite, Urine Neg (Neg); Protein, Urine 1+ (Neg); Urobilinogen, Urine NORM (Normal)
[2020-12-05 20:50] LABS: Appearance, Urine Clear (Clear); Color, Urine Pale Yellow (P-Yellow)
[2020-12-05 20:51] LABS: White Blood Cells, Urine TNTC /hpf (0-5)
[2020-12-05 20:52] LABS: Bacteria Many /hpf; Squamous Epithelial Cells Rare /hpf (Few); Transitional Epithelial Cells Rare /hpf (0-Rare)
[2020-12-05 21:07] LABS: Alanine Aminotransfer (ALT/SGP 25 U/L (12-78); Albumin, Blood 2.7 g/dL (3.4-5.0); Albumin/Globulin Ratio 0.7 (0.8-1.8); Alk Phos 184 U/L (50-136); Anion Gap 8 mmol/L (6-16); Aspartate Aminotrans (AST/SGOT 26 U/L (12-37); Bilirubin, Total 0.5 mg/dL (0.1-1.0); Blood Urea Nitrogen 5 mg/dL (8-24); Bun/Creatinine Ratio 23.9 (12.0-20.0); CO2, Blood 21 mmol/L (21-32); Calcium, Blood 8.2 mg/dL (8.5-10.1); Chloride, Blood 99 mmol/L (98-108); Creatinine, Blood 0.21 mg/dL (0.40-1.00); Globulin, Blood 3.9 g/dL (2.2-4.0); Glomerular Filtration Rate >60 (60-); Glucose, Blood 90 mg/dL (70-99); Potassium, Blood 4.4 mmol/L (3.5-5.5); Sodium, Blood 128 mmol/L (136-145); Total Protein, Blood 6.6 g/dL (6.4-8.2)
[2020-12-05] MEDS ORDERED: CEFD300 PO (22:37)
== END 2020-12-05 23:07 | disposition home or self-care (01) ==
LOC: ER 18:47
PROVIDERS: Physician Assistant
DX: N39.0 Urinary tract infection, site not specified (principal); Z79.899 Other long term (current) drug therapy
CPT/HCPCS: 71045; 80053; 81001; 85025; 87077; 87086; 87186; 96365; 99283-25; J0696

== ENCOUNTER 2021-01-12 04:21 | Day surgery (SDC) | payer OTHER ==
[~2021-01-12 04:21] MED LIST changes: +CEFD300 PO
[2021-01-12 12:54] LABS: Albumin, Blood 2.2 g/dL (3.4-5.0); Anion Gap 8 mmol/L (6-16); Blood Urea Nitrogen 4 mg/dL (8-24); Bun/Creatinine Ratio 27.8 (12.0-20.0); CO2, Blood 23 mmol/L (21-32); Calcium, Blood 7.8 mg/dL (8.5-10.1); Chloride, Blood 104 mmol/L (98-108); Creatinine, Blood 0.14 mg/dL (0.40-1.00); Glomerular Filtration Rate >60 (60-); Glucose, Blood 71 mg/dL (70-99); Phosphorus, Blood 3.2 mg/dL (2.5-4.9); Potassium, Blood 3.8 mmol/L (3.5-5.5); Sodium, Blood 135 mmol/L (136-145)
== END 2021-01-12 11:00 | disposition home or self-care (01) ==
LOC: ATC 04:21
PROVIDERS: Internal Medicine Endocrinology, Diabetes & Metabolism
DX: Z45.2 Encounter for adjustment and management of vascular access device (principal); L89.213 Pressure ulcer of right hip, stage 3; E87.1 Hypo-osmolality and hyponatremia; G82.51 Quadriplegia, C1-C4 complete; S14.102S Unspecified injury at C2 level of cervical spinal cord, sequela; N31.9 Neuromuscular dysfunction of bladder, unspecified; Z99.11 Dependence on respirator [ventilator] status
CPT/HCPCS: 80069; J1642

== ENCOUNTER 2021-02-04 07:27 | Day surgery (SDC) | payer OTHER | END 2021-02-04 14:20 | disposition home or self-care (01) | LOC: ATC 07:27 | DX: L89.213 Pressure ulcer of right hip, stage 3 (principal); G82.51 Quadriplegia, C1-C4 complete; J44.9 Chronic obstructive pulmonary disease, unspecified; J96.11 Chronic respiratory failure with hypoxia; I50.9 Heart failure, unspecified; G82.50 Quadriplegia, unspecified; Z88.1 Allergy status to other antibiotic agents; Z88.5 Allergy status to narcotic agent | CPT/HCPCS: 96523; J1642 ==

== ENCOUNTER 2021-02-11 04:16 | Day surgery (SDC) | payer OTHER | END 2021-02-11 23:25 | disposition home or self-care (01) | LOC: WOUND 04:16 | DX: L89.213 Pressure ulcer of right hip, stage 3 (principal); L89.302 Pressure ulcer of unspecified buttock, stage 2; G82.51 Quadriplegia, C1-C4 complete | CPT/HCPCS: G0463 ==

== ENCOUNTER 2021-03-05 13:09 | Emergency (ER) | payer OTHER ==
[~2021-03-05] VITALS: Ht 167.6 cm; Wt 81.7 kg
[2021-03-05 14:01] LABS: BASOPHILS ABSOLUTE AUTO 0.02 K/mm3 (0.00-0.23); BASOPHILS PERCENT AUTO 1 % (0-2); EOSINOPHILS ABSOLUTE AUTO 0.33 K/mm3 (0.00-0.68); EOSINOPHILS PERCENT AUTO 9 % (0-6); Hematocrit 32.8 % (33.0-51.0); Hemoglobin 10.5 g/dL (11.5-16.0); IMMATURE GRAN ABSOLUTE AUTO 0.01 K/mm3 (0.00-0.10); IMMATURE GRAN PERCENT AUTO 0 % (0-1); LYMPHOCYTES ABSOLUTE AUTO 1.57 K/mm3 (0.84-5.20); LYMPHOCYTES PERCENT AUTO 45 % (21-46); MONOCYTES ABSOLUTE AUTO 0.35 K/mm3 (0.16-1.47); MONOCYTES PERCENT AUTO 10 % (4-13); Mean Corpuscular HGB 30.7 pg (26.0-34.0); Mean Corpuscular Volume 96 fL (80-100); NEUTROPHILS ABSOLUTE AUTO 1.24 K/mm3 (1.96-9.15); NEUTROPHILS PERCENT AUTO 35 % (41-73); Platelet Count 241 K/mm3 (150-400); RDW Standard Deviation 57.1 fL (35.1-46.3); Red Blood Cell Count 3.42 M/mm3 (3.80-5.20); White Blood Cell Count 3.52 K/mm3 (4.00-11.30)
[2021-03-05 14:13] LABS: Alanine Aminotransfer (ALT/SGP 16 U/L (12-78); Albumin, Blood 2.2 g/dL (3.4-5.0); Albumin/Globulin Ratio 0.6 (0.8-1.8); Alk Phos 142 U/L (50-136); Anion Gap 8 mmol/L (6-16); Aspartate Aminotrans (AST/SGOT 10 U/L (12-37); Bilirubin, Total 0.4 mg/dL (0.1-1.0); Blood Urea Nitrogen 2 mg/dL (8-24); Bun/Creatinine Ratio 9.6 (12.0-20.0); CO2, Blood 24 mmol/L (21-32); Calcium, Blood 7.7 mg/dL (8.5-10.1); Chloride, Blood 115 mmol/L (98-108); Creatinine, Blood 0.21 mg/dL (0.40-1.00); Globulin, Blood 3.4 g/dL (2.2-4.0); Glomerular Filtration Rate >60 (60-); Glucose, Blood 79 mg/dL (70-99); Potassium, Blood 2.6 mmol/L (3.5-5.5); Sodium, Blood 147 mmol/L (136-145); Total Protein, Blood 5.6 g/dL (6.4-8.2)
[2021-03-05] MEDS ORDERED: METO10 PO (18:34)
[2021-03-05 18:36] LABS: SARS-Cov-2 (COVID-19) PCR, MMC NEGATIVE (NEGATIVE)
[2021-03-05] MEDS ORDERED: Robaxin750 MG PO (18:37)
== END 2021-03-05 21:45 | disposition home or self-care (01) ==
LOC: ER 13:09
PROVIDERS: Emergency Medicine; Student in an Organized Health Care Education/Training Program
DX: R51.9 Headache, unspecified (principal); M54.2 Cervicalgia; E87.6 Hypokalemia; G82.50 Quadriplegia, unspecified; Z88.1 Allergy status to other antibiotic agents; Z88.8 Allergy status to other drugs, medicaments and biological substances; Z79.899 Other long term (current) drug therapy; Z79.82 Long term (current) use of aspirin
CPT/HCPCS: 70450; 71045; 80053; 82330; 85025; 96365; 96366; 96368; 96375; 99285-25; A9270; J1885; J2765; J3475; J3480; J7030; J7120; U0004

== ENCOUNTER 2021-03-08 22:18 | Inpatient (IN) | payer OTHER ==
[~2021-03-08] VITALS: Ht 170.2 cm; Wt 90.7 kg
[~2021-03-08 22:18] MED LIST changes: +METO10 PO; +Robaxin750 MG PO
[2021-03-08 22:32] LABS: BASOPHILS ABSOLUTE AUTO 0.06 K/mm3 (0.00-0.23); BASOPHILS PERCENT AUTO 1 % (0-2); EOSINOPHILS ABSOLUTE AUTO 0.79 K/mm3 (0.00-0.68); EOSINOPHILS PERCENT AUTO 8 % (0-6); Hematocrit 35.2 % (33.0-51.0); Hemoglobin 11.6 g/dL (11.5-16.0); IMMATURE GRAN ABSOLUTE AUTO 0.03 K/mm3 (0.00-0.10); IMMATURE GRAN PERCENT AUTO 0 % (0-1); LYMPHOCYTES ABSOLUTE AUTO 1.59 K/mm3 (0.84-5.20); LYMPHOCYTES PERCENT AUTO 16 % (21-46); MONOCYTES ABSOLUTE AUTO 0.75 K/mm3 (0.16-1.47); MONOCYTES PERCENT AUTO 8 % (4-13); Mean Corpuscular HGB 30.9 pg (26.0-34.0); Mean Corpuscular Volume 94 fL (80-100); Mean Platelet Volume 9.5 fL (9.1-12.4); NEUTROPHILS ABSOLUTE AUTO 6.46 K/mm3 (1.96-9.15); NEUTROPHILS PERCENT AUTO 67 % (41-73); Platelet Count 328 K/mm3 (150-400); RDW Coefficient Variation 15.3 % (11.7-14.2); RDW Standard Deviation 53.3 fL (35.1-46.3); Red Blood Cell Count 3.75 M/mm3 (3.80-5.20); White Blood Cell Count 9.68 K/mm3 (4.00-11.30)
[2021-03-08 22:35] LABS: Calcium, Ionized (POC) 1.04 mmol/L (1.10-1.46); Chloride (POC) 94 mmol/L (98-108); Creatinine (POC) <0.2 mg/dL (0.6-1.0); Glucose (ISTAT POC) 135 mg/dL (70-99); Hemoglobin (POC) 12.2 g/dL (12.0-16.0); Potassium (POC) 5.9 mmol/L (3.5-5.5); Sodium (POC) 123 mmol/L (135-148); Total CO2 (POC) 20 mmol/L (21-32)
[2021-03-08 22:51] LABS: Alanine Aminotransfer (ALT/SGP 18 U/L (12-78); Albumin, Blood 2.5 g/dL (3.4-5.0); Albumin/Globulin Ratio 0.7 (0.8-1.8); Alk Phos 156 U/L (50-136); Anion Gap 8 mmol/L (6-16); Aspartate Aminotrans (AST/SGOT 17 U/L (12-37); Bilirubin, Total 0.6 mg/dL (0.1-1.0); Blood Urea Nitrogen 4 mg/dL (8-24); Bun/Creatinine Ratio 26.7 (12.0-20.0); CO2, Blood 20 mmol/L (21-32); Chloride, Blood 96 mmol/L (98-108); Creatinine, Blood 0.15 mg/dL (0.40-1.00); Globulin, Blood 3.7 g/dL (2.2-4.0); Glomerular Filtration Rate >60 (60-); Glucose, Blood 128 mg/dL (70-99); Potassium, Blood 5.7 mmol/L (3.5-5.5); Sodium, Blood 124 mmol/L (136-145); Total Protein, Blood 6.2 g/dL (6.4-8.2)
[2021-03-09 02:16] LABS: Alanine Aminotransfer (ALT/SGP 15 U/L (12-78); Albumin, Blood 2.1 g/dL (3.4-5.0); Albumin/Globulin Ratio 0.7 (0.8-1.8); Alk Phos 123 U/L (50-136); Anion Gap 8 mmol/L (6-16); Aspartate Aminotrans (AST/SGOT 13 U/L (12-37); Bilirubin, Total 0.5 mg/dL (0.1-1.0); Blood Urea Nitrogen 4 mg/dL (8-24); Bun/Creatinine Ratio Unable to Calculate (12.0-20.0); CO2, Blood 21 mmol/L (21-32); Calcium, Blood 7.1 mg/dL (8.5-10.1); Chloride, Blood 100 mmol/L (98-108); Creatinine, Blood <0.14 mg/dL (0.40-1.00); Globulin, Blood 3.2 g/dL (2.2-4.0); Glucose, Blood 85 mg/dL (70-99); Potassium, Blood 4.6 mmol/L (3.5-5.5); Sodium, Blood 129 mmol/L (136-145); Total Protein, Blood 5.3 g/dL (6.4-8.2)
[2021-03-09 02:25] LABS: Glomerular Filtration Rate Unable to Calculate (60-)
[2021-03-09 03:05] LABS: SARS-Cov-2 (COVID-19) PCR, MMC NEGATIVE (NEGATIVE)
--- NOTE | 2021-03-09 06:48 | NUR ---
PATIENT TO PCU 8 FOR ICU OBS AT 0530. AT BEDSIDE. LEVO AT 5. BP HIGH AT TIMES AND THEN DIPS LOW. LEVO NOW AT 2. PATIENT HAS TRACH OF UNKNOWN SIZE AND SHE STATES THAT SHE IS SOB AND "CANT BREATHE." SHE DEMANDS TO BE BAGGED BY AND REFUSES TO BE PUT BACK ON HOME VENT. HR TACHY IN 120S. RAY FROM HOME THAT MAY NEED TO BE REPLACED. ALL LABS WNL. SPOKE WITH AND SHE WOULD LIKE KARINE TODAY AND A PULM CONSULT
[2021-03-09 09:44] LABS: Base Excess Venous -3.4 mmol/L; Bicarbonate Venous 22.2 mmol/L (24.0-30.0); PCO2 Venous 30.5 mmHg (38-42); PO2 Venous 52.3 mmHg (38-42); pH Blood Venous 7.44 (7.34-7.37)
--- NOTE | 2021-03-09 12:51 | NUR ---
Echocardiogram completed.
--- NOTE | 2021-03-09 16:28 | NUR ---
UPDATE PHYSICIAN NOTIFIED PT HAVING PAIN IN LEGS AND PT MORE ALERT AND ABLE TO TOLERATE PO INTAKE. MIDODRINE AND GABAPENTIN ORDERED, SEE EMAR.
--- NOTE | 2021-03-09 18:08 | NUR ---
SHIFT SUMMARY PT ALERT. CONFUSED AT TIMES. AT BEDSIDE. BELIEVES CONFUSION IS D/T MORHPINE GIVEN FOR AIR HUNGER. PT ANXIOUS T/O SHIFT. MEDICATED PER EMAR. PT TURNED Q 2 HRS AND TURNED NEEDED BY . PT ON HOME VENT, SEE SETTINGS IN EHR. PT REPORTS FREQUENTLY THAT SHE "CANT BREATH AND NEEDS HELP." OXYGEN SATURATION MAINTAINED ABOVE 95%. PHYSICIAN AWARE. RT NOTIFIED AND MORPHINE UPDRAFT GIVEN PER RT AND THIS RN DISCRETION. PT REPORTS RELIEF WITH MORPHINE UPDRAFT. SUPRAPUBIC CATH DRAINING CLEAR YELLOW URINE. PT HYPOTENSIVE. MEDICATED WITH LEVO THIS AM D/T MENTATION. SEE EMAR. MIDODRINE STARTED THIS AFTERNOON ON HOME DOSE NOW THAT PT IS MORE ALERT AND ABLE TO TOLERATE PO INTAKE. PT REPORTS LEG PAIN THAT IS CHRONIC. MEDICATED WITH GABAPENTIN ONE TIME PER PHYSICIAN. WITH PT T/O SHIFT. HR STABLE. TACHY AT TIMES. WILL CONT TO MONITOR UNTIL REPORT GIVEN TO NIGHTSHIFT RN.
--- NOTE | 2021-03-09 18:36 | NUR ---
LEVO RESTARTED/PHYSICIAN AWARE PT HYPOTENSIVE 69/40. LEVO RESTARTED AT 1 MCG/MIN. SEE ICU FLOWSHEET.PHYSICIAN NOTIFIED
[2021-03-10 04:18] LABS: BASOPHILS ABSOLUTE AUTO 0.01 K/mm3 (0.00-0.23); BASOPHILS PERCENT AUTO 0 % (0-2); EOSINOPHILS PERCENT AUTO 0 % (0-6); Hematocrit 36.7 % (33.0-51.0); Hemoglobin 12.4 g/dL (11.5-16.0); IMMATURE GRAN ABSOLUTE AUTO 0.04 K/mm3 (0.00-0.10); IMMATURE GRAN PERCENT AUTO 1 % (0-1); LYMPHOCYTES ABSOLUTE AUTO 0.73 K/mm3 (0.84-5.20); LYMPHOCYTES PERCENT AUTO 9 % (21-46); MONOCYTES ABSOLUTE AUTO 0.43 K/mm3 (0.16-1.47); MONOCYTES PERCENT AUTO 5 % (4-13); Mean Corpuscular HGB 30.8 pg (26.0-34.0); Mean Corpuscular HGB Conc 33.8 g/dL (31.5-36.5); Mean Corpuscular Volume 91 fL (80-100); Mean Platelet Volume 9.9 fL (9.1-12.4); NEUTROPHILS ABSOLUTE AUTO 6.91 K/mm3 (1.96-9.15); NEUTROPHILS PERCENT AUTO 85 % (41-73); Platelet Count 324 K/mm3 (150-400); RDW Coefficient Variation 15.4 % (11.7-14.2); RDW Standard Deviation 51.3 fL (35.1-46.3); Red Blood Cell Count 4.02 M/mm3 (3.80-5.20); White Blood Cell Count 8.12 K/mm3 (4.00-11.30)
[2021-03-10 04:50] LABS: Alanine Aminotransfer (ALT/SGP 21 U/L (12-78); Albumin, Blood 2.8 g/dL (3.4-5.0); Albumin/Globulin Ratio 0.7 (0.8-1.8); Alk Phos 143 U/L (50-136); Anion Gap 15 mmol/L (6-16); Aspartate Aminotrans (AST/SGOT 15 U/L (12-37); Bilirubin, Total 0.6 mg/dL (0.1-1.0); Blood Urea Nitrogen 4 mg/dL (8-24); Bun/Creatinine Ratio 22.9 (12.0-20.0); CO2, Blood 17 mmol/L (21-32); Calcium, Blood 8.5 mg/dL (8.5-10.1); Chloride, Blood 95 mmol/L (98-108); Creatinine, Blood 0.18 mg/dL (0.40-1.00); Globulin, Blood 4.2 g/dL (2.2-4.0); Glomerular Filtration Rate >60 (60-); Glucose, Blood 124 mg/dL (70-99); Potassium, Blood 4.3 mmol/L (3.5-5.5); Sodium, Blood 127 mmol/L (136-145)
--- NOTE | 2021-03-10 06:33 | NUR ---
DIET THERAPIST SUMMARY PT IS AXO X4 AND VERY PLEASANT. PT MAINTAINED O2 SATS >94% ON HOME VENT BUT DID HAVE SEVERE AIR HUNGER AT THE START OF THE SHIFT WHICH RESOLVED W INHALED MORPHINE. PT REMAINS ON LEVOPHED AT 1 ALTHOUGH SHE WAS UP TO 3 FOR A BRIEF PERIOD FOLLOWING MORPHINE ADMINISTRATION. BP WNL AND STABLE AT THIS TIME, NO EPISODES OF HYPOTENSION THIS SHIFT . HR WAS ST IN THE 120'S BUT RESOLVED AFTER PAIN MEDICATION AND IS NOW IN THE 80'S. WILL REPORT TO AMANDA LANZA
--- NOTE | 2021-03-10 09:28 | NUR ---
PATIENT ALERT AND ORIENTED X4. MOUTHING WORDS. TRACH IN PLACE. HOME VENT SETTINGS. SATING ABOVE 94%. DENEIS SOB. LUNGS SOUNDING CLEAR AND DIM IN BASES. MINIMAL SECRETIONS THIS AM. SUCTIONING NEEDED. TELE SHOWING SINUS WITH HR 70'S. DENIES CHEST PAIN/PRESSURE. LEVOPHED OFF PREVIOUS SHIFT. BP STABLE WITH MIDODRINE. HOME MEDS ORDERED THIS AM. COMPLAINS OF NECK PAIN. ICE PACK IN PLACE. AT BEDSIDE HELPING WITH CARES. SUPRAPUBIC CATH IN PLACE DRAINING URINE TO GRAVITY. Q6 BLOOD SUGARS. NPO AT THIS TIME, TAKING PILLS WITH WATER. WILL CONTINUE TO MONITOR.
--- NOTE | 2021-03-10 11:40 | NUR ---
PT MEDICATED WITH NORCO ORDERED FOR 6/10 NECK AND R SIDE PAIN. PT ALSO PROVIDED WITH TEA AND A WARM BLANKET. AT BEDSIDE. DENIES ANY FURTHER NEEDS AT THIS TIME.
[2021-03-10] MEDS ORDERED: ATOR40TA PO (12:35)
[2021-03-10] MEDS ORDERED: TRAM50 PO (12:36)
--- NOTE | 2021-03-10 14:11 | NUR ---
DISCHARGE: DISCHARGE INSTRUCTIONS REVIEWED WITH PATIENT AND . MEDICATIONS CALLED INTO PHARMACY. QUESTIONS ANSWERED. IV TAKEN OUT PER PROTCOL. PATIENT AND EDUCATED ON DISCHARGE. USED LIFT TO TRANSFER PATIENT INTO HOME WHEELCHIAR. PATIENT LEFT UNIT WITH ALL PERSONAL BELONGINGS, INCLUDING HOME VENT VIA WHEELCHAIR.
== END 2021-03-10 15:35 | disposition home or self-care (01) | DRG 73 ==
LOC: ER 22:18 → PCU 22:19 → ICUW 22:19 → PCU 03-09 03:54
PROVIDERS: Emergency Medicine; Family Medicine; Student in an Organized Health Care Education/Training Program; ADMIT Internal Medicine
PROC: 3E033XZ Introduction of Vasopressor into Peripheral Vein, Percutaneous Approach (ICD-10-PCS; principal; 2021-03-09)
PROC: 5A1945Z Respiratory Ventilation, 24-96 Consecutive Hours (ICD-10-PCS; 2021-03-09)
DX: G90.9 Disorder of the autonomic nervous system, unspecified (principal); G82.50 Quadriplegia, unspecified; Z99.11 Dependence on respirator [ventilator] status; E27.40 Unspecified adrenocortical insufficiency; J96.10 Chronic respiratory failure, unspecified whether with hypoxia or hypercapnia; Z20.822 Contact with and (suspected) exposure to COVID-19; F32.9 Major depressive disorder, single episode, unspecified; M54.2 Cervicalgia; F41.9 Anxiety disorder, unspecified; M79.606 Pain in leg, unspecified; I10 Essential (primary) hypertension; E87.5 Hyperkalemia; S14.103S Unspecified injury at C3 level of cervical spinal cord, sequela; Z93.0 Tracheostomy status; Z87.442 Personal history of urinary calculi; Z88.0 Allergy status to penicillin; Z88.1 Allergy status to other antibiotic agents; Z86.73 Personal history of transient ischemic attack (TIA), and cerebral infarction without residual deficits; Z95.828 Presence of other vascular implants and grafts; Z87.891 Personal history of nicotine dependence; Z79.82 Long term (current) use of aspirin; Z79.899 Other long term (current) drug therapy
CPT/HCPCS: 31720; 36415; 70491; 71045; 71260; 80047; 80053; 82803; 82947; 83605; 83735; 84145; 85014; 85025; 87070; 87077; 87186; 87205; 93005; 93010; 93306; 94640; 94664; 94762; 96365; 96366; 96367; 96375; 99285-25; A9270; G0378; J1265; J1650; J1720; J1885; J1940; J2060; J2270; J2405; J7030; J7060; Q9967; U0004

== ENCOUNTER 2021-03-17 00:53 | Day surgery (SDC) | payer OTHER ==
[~2021-03-17 00:53] MED LIST changes: +ATOR40TA PO; +TRAM50 PO
[2021-03-17 15:21] LABS: BASOPHILS ABSOLUTE AUTO 0.04 K/mm3 (0.00-0.23); BASOPHILS PERCENT AUTO 0 % (0-2); EOSINOPHILS ABSOLUTE AUTO 0.57 K/mm3 (0.00-0.68); EOSINOPHILS PERCENT AUTO 5 % (0-6); Hematocrit 33.2 % (33.0-51.0); IMMATURE GRAN ABSOLUTE AUTO 0.05 K/mm3 (0.00-0.10); IMMATURE GRAN PERCENT AUTO 0 % (0-1); LYMPHOCYTES ABSOLUTE AUTO 1.55 K/mm3 (0.84-5.20); LYMPHOCYTES PERCENT AUTO 13 % (21-46); MONOCYTES ABSOLUTE AUTO 0.96 K/mm3 (0.16-1.47); MONOCYTES PERCENT AUTO 8 % (4-13); Mean Corpuscular HGB 31.8 pg (26.0-34.0); Mean Corpuscular HGB Conc 33.1 g/dL (31.5-36.5); Mean Corpuscular Volume 96 fL (80-100); Mean Platelet Volume 9.4 fL (9.1-12.4); NEUTROPHILS ABSOLUTE AUTO 8.78 K/mm3 (1.96-9.15); NEUTROPHILS PERCENT AUTO 74 % (41-73); Platelet Count 455 K/mm3 (150-400); RDW Coefficient Variation 15.6 % (11.7-14.2); RDW Standard Deviation 55.1 fL (35.1-46.3); Red Blood Cell Count 3.46 M/mm3 (3.80-5.20); White Blood Cell Count 11.95 K/mm3 (4.00-11.30)
[2021-03-17 15:46] LABS: Alanine Aminotransfer (ALT/SGP 18 U/L (12-78); Albumin, Blood 2.6 g/dL (3.4-5.0); Albumin/Globulin Ratio 0.7 (0.8-1.8); Alk Phos 108 U/L (50-136); Anion Gap 9 mmol/L (6-16); Aspartate Aminotrans (AST/SGOT 7 U/L (12-37); Bilirubin, Total 0.4 mg/dL (0.1-1.0); Blood Urea Nitrogen 3 mg/dL (8-24); Bun/Creatinine Ratio 15.6 (12.0-20.0); CO2, Blood 21 mmol/L (21-32); Calcium, Blood 8.4 mg/dL (8.5-10.1); Chloride, Blood 105 mmol/L (98-108); Creatinine, Blood 0.19 mg/dL (0.40-1.00); Globulin, Blood 3.7 g/dL (2.2-4.0); Glomerular Filtration Rate >60 (60-); Glucose, Blood 93 mg/dL (70-99); Potassium, Blood 4.5 mmol/L (3.5-5.5); Sodium, Blood 135 mmol/L (136-145); Total Protein, Blood 6.3 g/dL (6.4-8.2)
== END 2021-03-17 14:51 | disposition home or self-care (01) ==
LOC: ATC 00:53
PROVIDERS: Nurse Practitioner Family
DX: G82.50 Quadriplegia, unspecified (principal); J41.0 Simple chronic bronchitis; J96.10 Chronic respiratory failure, unspecified whether with hypoxia or hypercapnia; Z99.11 Dependence on respirator [ventilator] status; Z88.1 Allergy status to other antibiotic agents; Z88.8 Allergy status to other drugs, medicaments and biological substances
CPT/HCPCS: 36591; 80053; 85025; J1642

== ENCOUNTER → 2021-03-24 | Outpatient (CLI) | payer OTHER | END | disposition home or self-care (01) | LOC: LAB SHORT 16:00 | DX: J15.6 Pneumonia due to other Gram-negative bacteria (principal) | CPT/HCPCS: 87070; 87077; 87186; 87205 ==

== ENCOUNTER 2021-04-01 13:00 | Day surgery (SDC) | payer OTHER | END 2021-04-01 17:41 | disposition home or self-care (01) | LOC: ATC 13:00 | DX: G82.50 Quadriplegia, unspecified (principal); J44.9 Chronic obstructive pulmonary disease, unspecified; J96.10 Chronic respiratory failure, unspecified whether with hypoxia or hypercapnia; I10 Essential (primary) hypertension; G62.9 Polyneuropathy, unspecified; G40.909 Epilepsy, unspecified, not intractable, without status epilepticus | CPT/HCPCS: 96365; J1642; J2543 ==

== ENCOUNTER 2021-04-08 00:43 | Day surgery (SDC) | payer OTHER | END 2021-04-08 13:48 | disposition home or self-care (01) | LOC: ATC 00:43 | DX: Z45.2 Encounter for adjustment and management of vascular access device (principal); J41.0 Simple chronic bronchitis; J96.11 Chronic respiratory failure with hypoxia; I50.9 Heart failure, unspecified; G40.909 Epilepsy, unspecified, not intractable, without status epilepticus; Z99.11 Dependence on respirator [ventilator] status; Z79.899 Other long term (current) drug therapy | CPT/HCPCS: 96523; J1642 ==

== ENCOUNTER 2021-04-15 00:44 | Day surgery (SDC) | payer OTHER | END 2021-04-15 14:18 | disposition home or self-care (01) | LOC: ATC 00:44 | DX: Z45.2 Encounter for adjustment and management of vascular access device (principal); J41.0 Simple chronic bronchitis; J96.11 Chronic respiratory failure with hypoxia; I50.9 Heart failure, unspecified; G40.909 Epilepsy, unspecified, not intractable, without status epilepticus; Z99.11 Dependence on respirator [ventilator] status; Z79.899 Other long term (current) drug therapy | CPT/HCPCS: 96523; J1642 ==

== ENCOUNTER 2021-04-22 01:34 | Day surgery (SDC) | payer OTHER | END 2021-04-22 23:03 | disposition home or self-care (01) | LOC: WOUND 01:34 | DX: L89.213 Pressure ulcer of right hip, stage 3 (principal); L89.302 Pressure ulcer of unspecified buttock, stage 2; G82.51 Quadriplegia, C1-C4 complete | CPT/HCPCS: A9270 ==

== ENCOUNTER → 2021-05-10 | Outpatient (CLI) | payer OTHER | LOC: LAB 16:42 → LAB SHORT 16:42 | DX: R05.9 Cough, unspecified (principal); Z88.1 Allergy status to other antibiotic agents | CPT/HCPCS: 87070; 87077; 87186; 87205 ==

== ENCOUNTER 2021-05-13 03:36 | Day surgery (SDC) | payer OTHER | END 2021-05-13 22:44 | disposition home or self-care (01) | LOC: ATC 03:36 | DX: Z45.2 Encounter for adjustment and management of vascular access device (principal); J41.0 Simple chronic bronchitis; J96.11 Chronic respiratory failure with hypoxia; G82.50 Quadriplegia, unspecified; G40.909 Epilepsy, unspecified, not intractable, without status epilepticus; G62.9 Polyneuropathy, unspecified; I50.9 Heart failure, unspecified; Z88.1 Allergy status to other antibiotic agents; Z88.5 Allergy status to narcotic agent; Z79.891 Long term (current) use of opiate analgesic; Z99.11 Dependence on respirator [ventilator] status ==

== ENCOUNTER 2021-05-18 04:26 | Day surgery (SDC) | payer OTHER ==
[2021-05-18 15:45] LABS: BASOPHILS ABSOLUTE AUTO 0.07 K/mm3 (0.00-0.23); BASOPHILS PERCENT AUTO 1 % (0-2); EOSINOPHILS ABSOLUTE AUTO 0.28 K/mm3 (0.00-0.68); EOSINOPHILS PERCENT AUTO 3 % (0-6); Hematocrit 31.5 % (33.0-51.0); Hemoglobin 10.2 g/dL (11.5-16.0); IMMATURE GRAN ABSOLUTE AUTO 0.03 K/mm3 (0.00-0.10); IMMATURE GRAN PERCENT AUTO 0 % (0-1); LYMPHOCYTES ABSOLUTE AUTO 0.98 K/mm3 (0.84-5.20); LYMPHOCYTES PERCENT AUTO 10 % (21-46); MONOCYTES ABSOLUTE AUTO 0.68 K/mm3 (0.16-1.47); MONOCYTES PERCENT AUTO 7 % (4-13); Mean Corpuscular HGB 31.2 pg (26.0-34.0); Mean Corpuscular HGB Conc 32.4 g/dL (31.5-36.5); Mean Corpuscular Volume 96 fL (80-100); Mean Platelet Volume 10.2 fL (9.1-12.4); NEUTROPHILS PERCENT AUTO 80 % (41-73); Platelet Count 386 K/mm3 (150-400); RDW Coefficient Variation 14.2 % (11.7-14.2); RDW Standard Deviation 50.2 fL (35.1-46.3); Red Blood Cell Count 3.27 M/mm3 (3.80-5.20); White Blood Cell Count 10.14 K/mm3 (4.00-11.30)
[2021-05-18 16:35] LABS: Prealbumin, Blood 12.7 mg/dL (20.0-40.0)
[2021-05-18 16:36] LABS: Albumin, Blood 2.5 g/dL (3.4-5.0)
== END 2021-05-18 15:06 | disposition home or self-care (01) ==
LOC: ATC 04:26
PROVIDERS: Surgery
DX: L89.213 Pressure ulcer of right hip, stage 3 (principal); L89.302 Pressure ulcer of unspecified buttock, stage 2; G82.51 Quadriplegia, C1-C4 complete; J47.1 Bronchiectasis with (acute) exacerbation
CPT/HCPCS: 82040; 84134; 85025; 96523; J1642

== ENCOUNTER 2021-05-18 05:37 | Day surgery (SDC) | payer OTHER | END 2021-05-18 22:41 | disposition home or self-care (01) | LOC: WOUND 05:37 | DX: L89.323 Pressure ulcer of left buttock, stage 3 (principal); L89.213 Pressure ulcer of right hip, stage 3; L89.302 Pressure ulcer of unspecified buttock, stage 2; G82.51 Quadriplegia, C1-C4 complete | CPT/HCPCS: A9270; G0463 ==

== ENCOUNTER 2021-05-27 01:18 | Day surgery (SDC) | payer OTHER ==
[2021-05-27] MEDS ORDERED: Tazicef1 G1 (16:37)
== END 2021-05-27 14:25 | disposition home or self-care (01) ==
LOC: ATC 01:18
DX: Z45.2 Encounter for adjustment and management of vascular access device (principal); J41.0 Simple chronic bronchitis
CPT/HCPCS: 96523; J1642

== ENCOUNTER 2021-06-03 00:44 | Day surgery (SDC) | payer OTHER ==
[~2021-06-03 00:44] MED LIST changes: +Tazicef1 G1
== END 2021-06-03 14:05 | disposition home or self-care (01) ==
LOC: ATC 00:44
DX: Z45.2 Encounter for adjustment and management of vascular access device (principal); J44.9 Chronic obstructive pulmonary disease, unspecified; J96.11 Chronic respiratory failure with hypoxia; I50.9 Heart failure, unspecified; G40.909 Epilepsy, unspecified, not intractable, without status epilepticus; G62.9 Polyneuropathy, unspecified; G82.50 Quadriplegia, unspecified
CPT/HCPCS: 99211; J1642

== ENCOUNTER 2021-06-08 01:17 | Day surgery (SDC) | payer OTHER | END 2021-06-08 23:06 | disposition home or self-care (01) | LOC: WOUND 01:17 | DX: L89.323 Pressure ulcer of left buttock, stage 3 (principal); L89.213 Pressure ulcer of right hip, stage 3; L89.302 Pressure ulcer of unspecified buttock, stage 2; G82.51 Quadriplegia, C1-C4 complete | CPT/HCPCS: A9270 ==

== ENCOUNTER 2021-06-08 01:18 | Day surgery (SDC) | payer OTHER | END 2021-06-08 11:05 | disposition home or self-care (01) | LOC: ATC 01:18 | DX: Z45.2 Encounter for adjustment and management of vascular access device (principal); J41.0 Simple chronic bronchitis | CPT/HCPCS: J1642 ==

== ENCOUNTER 2021-07-05 03:54 | Day surgery (SDC) | payer OTHER | END 2021-07-05 11:58 | disposition home or self-care (01) | LOC: ATC 03:54 | DX: J15.1 Pneumonia due to Pseudomonas (principal); J44.9 Chronic obstructive pulmonary disease, unspecified | CPT/HCPCS: J1642; J3260 ==

== ENCOUNTER 2021-07-13 05:51 | Day surgery (SDC) | payer OTHER | END 2021-07-13 22:37 | disposition home or self-care (01) | LOC: WOUND 05:51 | DX: L89.323 Pressure ulcer of left buttock, stage 3 (principal); L89.213 Pressure ulcer of right hip, stage 3; G82.51 Quadriplegia, C1-C4 complete | CPT/HCPCS: A9270 ==

== ENCOUNTER → 2021-07-21 | Outpatient (CLI) | payer OTHER | END | disposition home or self-care (01) | LOC: LAB SHORT 13:15 | DX: R05.9 Cough, unspecified (principal) | CPT/HCPCS: 87070; 87077; 87186; 87205 ==

== ENCOUNTER 2021-07-23 00:26 | Day surgery (SDC) | payer OTHER ==
[2021-07-23 10:58] LABS: Prealbumin, Blood 16.1 mg/dL (20.0-40.0)
[2021-07-23 11:20] LABS: Alanine Aminotransfer (ALT/SGP 9 U/L (12-78); Albumin/Globulin Ratio 0.9 (0.8-1.8); Alk Phos 108 U/L (50-136); Anion Gap 9 mmol/L (6-16); Aspartate Aminotrans (AST/SGOT 12 U/L (12-37); Bilirubin, Total 0.5 mg/dL (0.1-1.0); Blood Urea Nitrogen 3 mg/dL (8-24); Bun/Creatinine Ratio Unable to Calculate (12.0-20.0); CO2, Blood 22 mmol/L (21-32); Calcium, Blood 8.2 mg/dL (8.5-10.1); Chloride, Blood 98 mmol/L (98-108); Creatinine, Blood <0.14 mg/dL (0.40-1.00); Globulin, Blood 3.2 g/dL (2.2-4.0); Glomerular Filtration Rate Unable to Calculate (60-); Glucose, Blood 70 mg/dL (70-99); Potassium, Blood 4.2 mmol/L (3.5-5.5); Sodium, Blood 129 mmol/L (136-145); Total Protein, Blood 6.2 g/dL (6.4-8.2)
== END 2021-07-23 09:56 | disposition home or self-care (01) ==
LOC: ATC 00:26
PROVIDERS: Surgery
DX: L89.213 Pressure ulcer of right hip, stage 3 (principal); L89.323 Pressure ulcer of left buttock, stage 3; G82.51 Quadriplegia, C1-C4 complete; J44.9 Chronic obstructive pulmonary disease, unspecified; I50.9 Heart failure, unspecified; G40.909 Epilepsy, unspecified, not intractable, without status epilepticus; Z88.1 Allergy status to other antibiotic agents
CPT/HCPCS: 80053; 84134; J1642

== ENCOUNTER 2021-08-17 03:40 | Day surgery (SDC) | payer OTHER | END 2021-08-17 13:45 | disposition home or self-care (01) | LOC: ATC 03:40 | DX: Z45.2 Encounter for adjustment and management of vascular access device (principal); J41.0 Simple chronic bronchitis; Z88.1 Allergy status to other antibiotic agents; Z88.0 Allergy status to penicillin; Z88.5 Allergy status to narcotic agent | CPT/HCPCS: J1642 ==

== ENCOUNTER 2021-08-17 04:05 | Day surgery (SDC) | payer OTHER | END 2021-08-17 22:38 | disposition home or self-care (01) | LOC: WOUND 04:05 | DX: L89.320 Pressure ulcer of left buttock, unstageable (principal); G82.50 Quadriplegia, unspecified | CPT/HCPCS: A9270; G0463 ==

== ENCOUNTER 2021-09-01 03:37 | Day surgery (SDC) | payer OTHER | END 2021-09-01 22:50 | disposition home or self-care (01) | LOC: WOUND 03:37 | DX: L89.324 Pressure ulcer of left buttock, stage 4 (principal); G82.51 Quadriplegia, C1-C4 complete; E27.40 Unspecified adrenocortical insufficiency; N31.9 Neuromuscular dysfunction of bladder, unspecified; Z99.11 Dependence on respirator [ventilator] status | CPT/HCPCS: A9270 ==

== ENCOUNTER 2021-09-08 01:03 | Day surgery (SDC) | payer OTHER ==
[~2021-09-08 01:03] MED LIST changes: -K-Dur 20 meq T20 MEQ PO
== END 2021-09-08 22:50 | disposition home or self-care (01) ==
LOC: WOUND 01:03
DX: L89.324 Pressure ulcer of left buttock, stage 4 (principal); S81.801A Unspecified open wound, right lower leg, initial encounter; L89.213 Pressure ulcer of right hip, stage 3; G82.51 Quadriplegia, C1-C4 complete
CPT/HCPCS: A9270

== ENCOUNTER 2021-09-13 01:06 | Day surgery (SDC) | payer OTHER ==
[~2021-09-13 01:06] MED LIST changes: +K-Dur 20 meq T20 MEQ PO
== END 2021-09-13 15:55 | disposition home or self-care (01) ==
LOC: ATC 01:06
DX: Z45.2 Encounter for adjustment and management of vascular access device (principal); J41.0 Simple chronic bronchitis; Z88.1 Allergy status to other antibiotic agents; Z88.0 Allergy status to penicillin; Z88.5 Allergy status to narcotic agent
CPT/HCPCS: J1642

== ENCOUNTER 2021-09-13 01:51 | Day surgery (SDC) | payer OTHER | END 2021-09-13 23:26 | disposition home or self-care (01) | LOC: WOUND 01:51 | DX: L89.213 Pressure ulcer of right hip, stage 3 (principal); L89.323 Pressure ulcer of left buttock, stage 3; G82.51 Quadriplegia, C1-C4 complete ==

== ENCOUNTER 2021-09-24 01:46 | Day surgery (SDC) | payer OTHER | END 2021-09-24 22:51 | disposition home or self-care (01) | LOC: WOUND 01:46 | DX: L89.324 Pressure ulcer of left buttock, stage 4 (principal); L89.220 Pressure ulcer of left hip, unstageable; G82.51 Quadriplegia, C1-C4 complete; D50.9 Iron deficiency anemia, unspecified; R77.0 Abnormality of albumin | CPT/HCPCS: A9270; G0463 ==

== ENCOUNTER 2021-10-01 00:30 | Day surgery (SDC) | payer OTHER | END 2021-10-01 23:06 | disposition home or self-care (01) | LOC: WOUND 00:30 | DX: L89.324 Pressure ulcer of left buttock, stage 4 (principal); L89.220 Pressure ulcer of left hip, unstageable; G82.51 Quadriplegia, C1-C4 complete; D50.9 Iron deficiency anemia, unspecified; R77.0 Abnormality of albumin | CPT/HCPCS: A9270; G0463 ==

== ENCOUNTER 2021-10-07 00:59 | Day surgery (SDC) | payer OTHER | END 2021-10-07 10:36 | disposition home or self-care (01) | LOC: ATC 00:59 | DX: Z45.2 Encounter for adjustment and management of vascular access device (principal); J41.0 Simple chronic bronchitis; J96.11 Chronic respiratory failure with hypoxia; I50.9 Heart failure, unspecified; G40.909 Epilepsy, unspecified, not intractable, without status epilepticus; G82.50 Quadriplegia, unspecified; Z79.899 Other long term (current) drug therapy | CPT/HCPCS: 96523; J1642 ==

== ENCOUNTER → 2021-10-08 | Outpatient (CLI) | payer OTHER ==
[2021-10-08 19:10] LABS: Appearance, Urine Hazy (Clear); Bilirubin, Urine Neg (Neg); Blood, Urine Neg (Neg); Color, Urine Yellow (P-Yellow); Glucose Qualitative, Urine Neg (Neg); Ketones, Urine Neg (Neg); Leukocyte Esterase, Urine 1+ (Neg); Nitrite, Urine Neg (Neg); Protein, Urine 1+ (Neg); Urobilinogen, Urine NORM (Normal)
[2021-10-08 19:34] LABS: Bacteria Many /hpf; Hyaline Casts 0-2 /lpf (0-2); Red Blood Cells, Urine 0-2 /hpf (0-2); Squamous Epithelial Cells Mod /hpf (Few)
== END | disposition home or self-care (01) ==
LOC: LAB SHORT 15:00 → LAB 15:00 → LAB FUT 10-08 14:05
PROVIDERS: Nurse Practitioner Family
DX: R06.02 Shortness of breath (principal); R11.0 Nausea; L89.153 Pressure ulcer of sacral region, stage 3
CPT/HCPCS: 81001; 87070; 87075; 87077; 87086; 87185; 87186; 87205

== ENCOUNTER 2021-10-22 01:19 | Day surgery (SDC) | payer OTHER | END 2021-10-22 22:44 | disposition home or self-care (01) | LOC: WOUND 01:19 | DX: L89.324 Pressure ulcer of left buttock, stage 4 (principal); L89.220 Pressure ulcer of left hip, unstageable; G82.51 Quadriplegia, C1-C4 complete; R77.0 Abnormality of albumin; D50.9 Iron deficiency anemia, unspecified; Z99.11 Dependence on respirator [ventilator] status; E27.40 Unspecified adrenocortical insufficiency; N31.9 Neuromuscular dysfunction of bladder, unspecified | CPT/HCPCS: A9270; G0463 ==

== ENCOUNTER 2021-10-26 01:13 | Day surgery (SDC) | payer OTHER ==
[2021-10-26] MEDS ORDERED: METR500 PO (13:46)
[2021-10-26] MEDS ORDERED: TAZICEF2 G2 IV (13:46)
[2021-10-26] MEDS ORDERED: LEVO750 PO (13:46)
== END 2021-10-26 13:48 | disposition home or self-care (01) ==
LOC: ATC 01:13
DX: J15.1 Pneumonia due to Pseudomonas (principal); Z88.1 Allergy status to other antibiotic agents; Z87.891 Personal history of nicotine dependence
CPT/HCPCS: J1642

== ENCOUNTER 2021-11-04 00:46 | Day surgery (SDC) | payer OTHER ==
[~2021-11-04 00:46] MED LIST changes: +METR500 PO; +TAZICEF2 G2 IV
== END 2021-11-04 15:17 | disposition home or self-care (01) ==
LOC: ATC 00:46
DX: J15.1 Pneumonia due to Pseudomonas (principal); Z87.891 Personal history of nicotine dependence
CPT/HCPCS: 96523; J1642

== ENCOUNTER → 2021-11-25 | Outpatient (CLI) | payer OTHER | END | disposition home or self-care (01) | LOC: LAB SHORT 13:00 → LAB 13:00 | DX: J18.9 Pneumonia, unspecified organism (principal) | CPT/HCPCS: 87070; 87077; 87186; 87205 ==

== ENCOUNTER 2021-12-07 10:34 | Day surgery (SDC) | payer OTHER ==
[2021-12-07] MEDS ORDERED: TOBRAMYCIN300 MG/10 INH (11:58)
== END 2021-12-07 11:20 | disposition home or self-care (01) ==
LOC: ATC 10:34
DX: Z45.2 Encounter for adjustment and management of vascular access device (principal); D64.89 Other specified anemias; R50.9 Fever, unspecified; J96.12 Chronic respiratory failure with hypercapnia; J96.11 Chronic respiratory failure with hypoxia; Z79.82 Long term (current) use of aspirin; Z87.891 Personal history of nicotine dependence; Z79.899 Other long term (current) drug therapy
CPT/HCPCS: 96523; J1642

== ENCOUNTER 2021-12-11 19:13 | Emergency (ER) | payer OTHER ==
[~2021-12-11] VITALS: Ht 167.6 cm; Wt 61.2 kg
[~2021-12-11 19:13] MED LIST changes: +TOBRAMYCIN300 MG/10 INH
[2021-12-11 20:46] LABS: Source, Urine Foley catheter
[2021-12-11 20:49] LABS: Bilirubin, Urine Neg (Neg); Blood, Urine 2+ (Neg); Glucose Qualitative, Urine Neg (Neg); Ketones, Urine Neg (Neg); Leukocyte Esterase, Urine 1+ (Neg); Nitrite, Urine Pos (Neg); Protein, Urine Neg (Neg); Specific Gravity, Urine 1.005 (1.003-1.022); Urobilinogen, Urine NORM (Normal)
[2021-12-11 20:49] LABS: BASOPHILS ABSOLUTE AUTO 0.05 K/mm3 (0.00-0.23); BASOPHILS PERCENT AUTO 0 % (0-2); EOSINOPHILS ABSOLUTE AUTO 0.01 K/mm3 (0.00-0.68); EOSINOPHILS PERCENT AUTO 0 % (0-6); Hematocrit 38.5 % (33.0-51.0); Hemoglobin 11.9 g/dL (11.5-16.0); IMMATURE GRAN ABSOLUTE AUTO 0.03 K/mm3 (0.00-0.10); IMMATURE GRAN PERCENT AUTO 0 % (0-1); LYMPHOCYTES ABSOLUTE AUTO 0.74 K/mm3 (0.84-5.20); LYMPHOCYTES PERCENT AUTO 6 % (21-46); MONOCYTES ABSOLUTE AUTO 0.83 K/mm3 (0.16-1.47); MONOCYTES PERCENT AUTO 7 % (4-13); Mean Corpuscular HGB 27.6 pg (26.0-34.0); Mean Corpuscular HGB Conc 30.9 g/dL (31.5-36.5); Mean Corpuscular Volume 89 fL (80-100); Mean Platelet Volume 9.1 fL (9.1-12.4); NEUTROPHILS ABSOLUTE AUTO 9.86 K/mm3 (1.96-9.15); NEUTROPHILS PERCENT AUTO 86 % (41-73); Platelet Count 389 K/mm3 (150-400); RDW Coefficient Variation 15.3 % (11.7-14.2); Red Blood Cell Count 4.31 M/mm3 (3.80-5.20); White Blood Cell Count 11.52 K/mm3 (4.00-11.30)
[2021-12-11 20:54] LABS: Appearance, Urine Hazy (Clear); Color, Urine Pale Yellow (P-Yellow)
[2021-12-11 20:56] LABS: Bacteria Many /hpf; Calcium Oxalate Crystals Few /hpf; Squamous Epithelial Cells Few /hpf (Few)
[2021-12-11 21:21] LABS: Alanine Aminotransfer (ALT/SGP 27 U/L (12-78); Albumin, Blood 3.2 g/dL (3.4-5.0); Albumin/Globulin Ratio 0.8 (0.8-1.8); Alk Phos 104 U/L (50-136); Anion Gap 8 mmol/L (6-16); Aspartate Aminotrans (AST/SGOT 14 U/L (12-37); Bilirubin, Total 0.4 mg/dL (0.1-1.0); Blood Urea Nitrogen 20 mg/dL (8-24); Bun/Creatinine Ratio Unable to Calculate (12.0-20.0); CO2, Blood 26 mmol/L (21-32); Calcium, Blood 8.5 mg/dL (8.5-10.1); Chloride, Blood 104 mmol/L (98-108); Creatinine, Blood <0.14 mg/dL (0.40-1.00); Globulin, Blood 3.8 g/dL (2.2-4.0); Glucose, Blood 162 mg/dL (70-99); Potassium, Blood 3.9 mmol/L (3.5-5.5); Sodium, Blood 138 mmol/L (136-145)
[2021-12-11 22:19] LABS: Influenza A, PCR NEGATIVE (NEGATIVE); Influenza B, PCR NEGATIVE (NEGATIVE); Resp Syncytial Virus, PCR NEGATIVE (NEGATIVE); SARS-Cov-2 (COVID-19) PCR, MMC NEGATIVE (NEGATIVE)
== END 2021-12-11 23:09 | disposition home or self-care (01) ==
LOC: ER 19:13
PROVIDERS: Emergency Medicine
DX: R19.7 Diarrhea, unspecified (principal); I10 Essential (primary) hypertension; J18.9 Pneumonia, unspecified organism; G82.50 Quadriplegia, unspecified; Z79.899 Other long term (current) drug therapy; Z79.82 Long term (current) use of aspirin; Z20.822 Contact with and (suspected) exposure to COVID-19
CPT/HCPCS: 0241U; 36415; 71045; 80053; 81001; 85025; 99284-25

== ENCOUNTER → 2022-01-05 | Outpatient (CLI) | payer OTHER | END | disposition home or self-care (01) | LOC: LAB 11:06 → LAB SHORT 11:06 | DX: L89.324 Pressure ulcer of left buttock, stage 4 (principal); R50.81 Fever presenting with conditions classified elsewhere | CPT/HCPCS: 87070; 87071; 87075; 87077; 87186; 87205 ==

== ENCOUNTER 2022-01-06 00:48 | Day surgery (SDC) | payer OTHER ==
[~2022-01-06 00:48] MED LIST changes: -K-Dur 20 meq T20 MEQ PO
[2022-01-06 17:19] LABS: BASOPHILS ABSOLUTE AUTO 0.04 K/mm3 (0.00-0.23); BASOPHILS PERCENT AUTO 0 % (0-2); EOSINOPHILS ABSOLUTE AUTO 0.02 K/mm3 (0.00-0.68); EOSINOPHILS PERCENT AUTO 0 % (0-6); Hemoglobin 11.8 g/dL (11.5-16.0); IMMATURE GRAN ABSOLUTE AUTO 0.07 K/mm3 (0.00-0.10); IMMATURE GRAN PERCENT AUTO 0 % (0-1); LYMPHOCYTES ABSOLUTE AUTO 0.58 K/mm3 (0.84-5.20); LYMPHOCYTES PERCENT AUTO 4 % (21-46); MONOCYTES ABSOLUTE AUTO 0.34 K/mm3 (0.16-1.47); MONOCYTES PERCENT AUTO 2 % (4-13); Mean Corpuscular HGB 28.2 pg (26.0-34.0); Mean Corpuscular HGB Conc 31.9 g/dL (31.5-36.5); Mean Corpuscular Volume 88 fL (80-100); Mean Platelet Volume 8.7 fL (9.1-12.4); NEUTROPHILS ABSOLUTE AUTO 14.51 K/mm3 (1.96-9.15); NEUTROPHILS PERCENT AUTO 93 % (41-73); Platelet Count 384 K/mm3 (150-400); RDW Standard Deviation 55.1 fL (35.1-46.3); Red Blood Cell Count 4.19 M/mm3 (3.80-5.20); White Blood Cell Count 15.56 K/mm3 (4.00-11.30)
[2022-01-06 19:42] LABS: Alanine Aminotransfer (ALT/SGP 47 U/L (12-78); Albumin/Globulin Ratio 0.7 (0.8-1.8); Alk Phos 145 U/L (50-136); Anion Gap 10 mmol/L (6-16); Aspartate Aminotrans (AST/SGOT 17 U/L (12-37); Bilirubin, Total 0.5 mg/dL (0.1-1.0); Blood Urea Nitrogen 9 mg/dL (8-24); Bun/Creatinine Ratio Unable to Calculate (12.0-20.0); CO2, Blood 24 mmol/L (21-32); Calcium, Blood 8.4 mg/dL (8.5-10.1); Chloride, Blood 98 mmol/L (98-108); Creatinine, Blood <0.14 mg/dL (0.40-1.00); Globulin, Blood 4.1 g/dL (2.2-4.0); Glucose, Blood 206 mg/dL (70-99); Sodium, Blood 132 mmol/L (136-145); Total Protein, Blood 7.1 g/dL (6.4-8.2)
== END 2022-01-06 16:58 | disposition home or self-care (01) ==
LOC: ATC 00:48
PROVIDERS: Nurse Practitioner Family
DX: D64.89 Other specified anemias (principal); R50.9 Fever, unspecified
CPT/HCPCS: 36591; 80053; 85025; J1642

== ENCOUNTER → 2022-01-11 | Outpatient (CLI) | payer OTHER ==
[~2022-01-11] MED LIST changes: +K-Dur 20 meq T20 MEQ PO
== END | disposition home or self-care (01) ==
LOC: LAB 13:05 → LAB SHORT 13:05
DX: J18.9 Pneumonia, unspecified organism (principal)
CPT/HCPCS: 87070; 87077; 87186; 87205

== ENCOUNTER 2022-01-15 20:26 | Observation (INO) | payer OTHER ==
[~2022-01-15] VITALS: Ht 170.2 cm; Wt 55.1 kg
[2022-01-15 20:40] LABS: PCO2 Arterial 36.6 mmHg (35-45); PO2 Arterial 75.5 mmHg (80-100); pH Blood Arterial 7.51 (7.35-7.45)
[2022-01-15 21:04] LABS: BASOPHILS ABSOLUTE AUTO 0.04 K/mm3 (0.00-0.23); BASOPHILS PERCENT AUTO 1 % (0-2); EOSINOPHILS PERCENT AUTO 1 % (0-6); Hematocrit 34.8 % (33.0-51.0); Hemoglobin 11.1 g/dL (11.5-16.0); IMMATURE GRAN ABSOLUTE AUTO 0.03 K/mm3 (0.00-0.10); IMMATURE GRAN PERCENT AUTO 0 % (0-1); LYMPHOCYTES ABSOLUTE AUTO 1.17 K/mm3 (0.84-5.20); LYMPHOCYTES PERCENT AUTO 14 % (21-46); MONOCYTES ABSOLUTE AUTO 0.63 K/mm3 (0.16-1.47); MONOCYTES PERCENT AUTO 7 % (4-13); Mean Corpuscular HGB 28.4 pg (26.0-34.0); Mean Corpuscular HGB Conc 31.9 g/dL (31.5-36.5); Mean Corpuscular Volume 89 fL (80-100); Mean Platelet Volume 8.8 fL (9.1-12.4); NEUTROPHILS ABSOLUTE AUTO 6.65 K/mm3 (1.96-9.15); NEUTROPHILS PERCENT AUTO 77 % (41-73); Platelet Count 341 K/mm3 (150-400); RDW Standard Deviation 57.7 fL (35.1-46.3); Red Blood Cell Count 3.91 M/mm3 (3.80-5.20); White Blood Cell Count 8.62 K/mm3 (4.00-11.30)
[2022-01-15 21:21] LABS: Albumin, Blood 2.9 g/dL (3.4-5.0); Albumin/Globulin Ratio 0.8 (0.8-1.8); Bilirubin, Total 0.4 mg/dL (0.1-1.0); Calcium, Blood 8.1 mg/dL (8.5-10.1); Creatinine, Blood 0.17 mg/dL (0.40-1.00); Globulin, Blood 3.7 g/dL (2.2-4.0); Potassium, Blood 3.1 mmol/L (3.5-5.5); Total Protein, Blood 6.6 g/dL (6.4-8.2)
[2022-01-16 02:23] LABS: Source, Urine Suprapubic Cath
[2022-01-16 02:25] LABS: Bilirubin, Urine Neg (Neg); Blood, Urine 2+ (Neg); Glucose Qualitative, Urine Neg (Neg); Ketones, Urine Neg (Neg); Leukocyte Esterase, Urine 1+ (Neg); Nitrite, Urine Pos (Neg); Protein, Urine 1+ (Neg); Urobilinogen, Urine NORM (Normal)
[2022-01-16 02:27] LABS: Appearance, Urine Hazy (Clear); Color, Urine Pale Yellow (P-Yellow)
[2022-01-16 02:32] LABS: Amorphous Mod (0-Heavy); Bacteria Few /hpf; Red Blood Cells, Urine 0-2 /hpf (0-2); Squamous Epithelial Cells Few /hpf (Few)
[2022-01-16 03:30] LABS: Source, Urine Suprapubic Cath
[2022-01-16 03:33] LABS: Bilirubin, Urine Neg (Neg); Blood, Urine 1+ (Neg); Glucose Qualitative, Urine Neg (Neg); Ketones, Urine Neg (Neg); Leukocyte Esterase, Urine 2+ (Neg); Nitrite, Urine Neg (Neg); Protein, Urine Neg (Neg); Urobilinogen, Urine NORM (Normal)
[2022-01-16 03:50] LABS: Appearance, Urine Hazy (Clear); Color, Urine Pale Yellow (P-Yellow)
[2022-01-16 03:55] LABS: Amorphous Light (0-Heavy); Bacteria Few /hpf; Red Blood Cells, Urine 0-2 /hpf (0-2); Squamous Epithelial Cells Not Seen /hpf (Few); Yeast/Fungi Urine Many /hpf
[2022-01-16 03:56] LABS: Calcium Oxalate Crystals Few /hpf
[2022-01-16 04:13] LABS: Yeast/Fungi Urine Mod /hpf
[2022-01-16 04:54] LABS: Bun/Creatinine Ratio 88.4 (12.0-20.0); Calcium, Blood 7.5 mg/dL (8.5-10.1); Creatinine, Blood 0.15 mg/dL (0.40-1.00); Potassium, Blood 3.5 mmol/L (3.5-5.5)
--- NOTE | 2022-01-16 05:48 | NUR ---
SHIFT SUMMARY PT ALERT. UNABLE TO ASSESS ORIENTATION, NON VERBAL MOST OF SHIFT. ER ADMIT, ARRIVAL TO PCU AT 0140. SPOUSE IN ROOM, HELPFUL TO CARE. BP STABLE. AFEBRILE. TRACH W/ HOME VENT MANAGED BY RT. SATS OVER 97%. PRESSURE ULCER ON L SIDE HIP AND BOTTOM. WOUND PHOTO IN CHART. MEPILEX IN PLACE AND STUFFED W/ CALCIUM ALGINATE. MANAGED BY OUTPATIENT WOUND CARE AT HOME. MEDIPORT SALINE LOCKED. IN BED SLEEPING WITH CALL ALARM AT SIDE, WILL CONTINUE TO MONITOR UNTIL REPORT GIVEN TO DAYSHIFT RN
[2022-01-16 09:36] LABS: Thyroid Stimulating Hormone 3.41 uIU/mL (0.360-4.800)
--- NOTE | 2022-01-16 17:02 | NUR ---
SHIFT SUMMARY PT HAS BEEN RESTING IN BED. PT HAS CALLED OUT THEIR SPOUSE'S NAME AND MADE SOUNDS BUT USED NO OTHER WORDS. PT WILL LOCATE AND TRACK WITH THEIR EYES. PT'S SPOUSE HAS BEEN AT BEDSIDE THROUGHOUT THE DAY, THEY HAVE BEEN A SOURCE OF INFORMATION AND HAVE HELPED WITH ALL CARES. SBP HAS SLOWLY CLIMBED THROUGHOUT THE DAY, HEART RATE, RESPIRATIONS, TEMPERATURE, AND SPO2 HAVE REMAINED STABLE. NO ACUTE CHANGES IN CONDITION.
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
--- NOTE | 2022-01-16 20:24 | NUR ---
PATIENT AWAKE, A&O ANSWERING ALL QUESTIONS APPROPRIATELY. ASKING FOR BREATHING TREATMENT DUONEB PER RT GIVEN.
--- NOTE | 2022-01-17 05:10 | NUR ---
PATIENT HYPERTENSIVE, MIDODRINE HELD AT 0400, PATIENT SBP CONTINUES 210. PATIENT REMAINS A&O, GOOD PAIN CONTROL, RAY CONTINUES TO DRAIN WELL. PATIENT AND PATIENTS VERBALIZED THAT SOMETIMES HYPERTENSION CAN SHOW WHEN SHE IS HUNGRY. SNACK OF PUDDING AND GRAM CRACKERS GIVEN. PLAN TO GET DIET CHANGED THIS MORNING NOW THAT PATIENT IS BACK TO HER BASELINE.
--- NOTE | 2022-01-17 05:40 | NUR ---
AFTER EATING BP 120/71
--- NOTE | 2022-01-17 05:53 | NUR ---
SUMMARY PATIENT BACK TO HER BASELINE MENTALLY. NEUROGENIC BLOOD PRESSURE HYPERTENSION EARLY THIS MORNING. MIDODRINE HELD AND SNACK GIVEN RESULTING IN LOWERING BP. NS TKO TO MEDIPORT. SUPRAPUBIC CATH IN PLACE DRAINING LARGE AMT OF HAZY YELLOW URINE. DRESSINGS TO HIPS AND BUTTOCK CD&I. PATIENTS REMAINING AT BEDSIDE T/O NIGHT REPOSITIONING, SUCTIONING, PROVIDING COUGH ASSIST, AND GENERAL ADL CARE T/O NIGHT. TRACH REMAINS MIDLINE WITH HOME VENT T/O NIGHT.
[2022-01-17 07:50] LABS: BASOPHILS ABSOLUTE AUTO 0.04 K/mm3 (0.00-0.23); BASOPHILS PERCENT AUTO 1 % (0-2); EOSINOPHILS ABSOLUTE AUTO 0.02 K/mm3 (0.00-0.68); EOSINOPHILS PERCENT AUTO 0 % (0-6); Hematocrit 33.9 % (33.0-51.0); Hemoglobin 10.7 g/dL (11.5-16.0); IMMATURE GRAN ABSOLUTE AUTO 0.03 K/mm3 (0.00-0.10); IMMATURE GRAN PERCENT AUTO 0 % (0-1); LYMPHOCYTES ABSOLUTE AUTO 0.97 K/mm3 (0.84-5.20); LYMPHOCYTES PERCENT AUTO 12 % (21-46); MONOCYTES ABSOLUTE AUTO 0.66 K/mm3 (0.16-1.47); MONOCYTES PERCENT AUTO 8 % (4-13); Mean Corpuscular HGB 28.2 pg (26.0-34.0); Mean Corpuscular HGB Conc 31.6 g/dL (31.5-36.5); Mean Corpuscular Volume 89 fL (80-100); NEUTROPHILS ABSOLUTE AUTO 6.32 K/mm3 (1.96-9.15); NEUTROPHILS PERCENT AUTO 79 % (41-73); Platelet Count 321 K/mm3 (150-400); RDW Coefficient Variation 18.1 % (11.7-14.2); RDW Standard Deviation 58.8 fL (35.1-46.3); Red Blood Cell Count 3.79 M/mm3 (3.80-5.20); White Blood Cell Count 8.04 K/mm3 (4.00-11.30)
--- NOTE | 2022-01-17 08:15 | NUR ---
ASSUMED CARE OF PT THIS AM PT. ALERT AND ORIENTED. PER PT AND PT SEEMS "BACK TO NORMAL". NO FURTHER HALLUCINATIONS OR ALT MENTAL STATUS AT THIS TIME. PT. REMAINS AT BEDSIDE, ASSISTS WITH REPOSITIONING AND COUGH ASSIST. PT. CONTINUES ON HOME VENT, LS COARSE WITH MOD SECREATIONS WITH COUGH ASSIST. VSS THIS AM. NADN CALL CARE NEEDS MET AT THIS TIME. BREAKFAST TRAY ORDERED.
[2022-01-17 08:28] LABS: Alanine Aminotransfer (ALT/SGP 27 U/L (12-78); Albumin, Blood 2.8 g/dL (3.4-5.0); Albumin/Globulin Ratio 0.8 (0.8-1.8); Alk Phos 91 U/L (50-136); Anion Gap 8 mmol/L (6-16); Aspartate Aminotrans (AST/SGOT 12 U/L (12-37); Bilirubin, Total 0.4 mg/dL (0.1-1.0); Blood Urea Nitrogen 8 mg/dL (8-24); Bun/Creatinine Ratio Unable to Calculate (12.0-20.0); CO2, Blood 26 mmol/L (21-32); Calcium, Blood 7.9 mg/dL (8.5-10.1); Chloride, Blood 107 mmol/L (98-108); Creatinine, Blood <0.14 mg/dL (0.40-1.00); Globulin, Blood 3.4 g/dL (2.2-4.0); Glucose, Blood 190 mg/dL (70-99); Potassium, Blood 2.6 mmol/L (3.5-5.5); Sodium, Blood 141 mmol/L (136-145); Total Protein, Blood 6.2 g/dL (6.4-8.2)
--- NOTE | 2022-01-17 11:48 | NUR ---
ROUNDED ON PT FRESH ICE WATER PROVIDED. MED FOR PAIN PER PT REQUEST. VSS AT THIS TIME. ALL NEEDS MET AT THIS TIME. PT REMAINS AT BEDSIDE AND ASSSITS WITH REPOSITIONING
[2022-01-17] MEDS ORDERED: CEFD300 PO (13:56)
[2022-01-17] MEDS ORDERED: TRAZ150T57 PO (13:56)
[2022-01-17] MEDS ORDERED: [UNRECOGNIZED DRUG - OTHER] PO (13:56)
--- NOTE | 2022-01-17 16:09 | NUR ---
DISCHARGE PT. DISCHARGED TO HOME. VSS UPON DISCHARGE. MEDIPORT DEACCESSED AND HEP LOCKED. MEDICATION CHANGES REVIEWED PRIOR TO DISCHARGE, NO FURTHER QUESTIONS. PT ASSISTED VIA LIFT INTO WHEELCHAIR AND TAKEN VIA TO CAR.
== END 2022-01-17 15:58 | disposition home health service (06) ==
LOC: ER 20:26 → PCU 20:27
PROVIDERS: Emergency Medicine; Family Medicine; Internal Medicine; Student in an Organized Health Care Education/Training Program; ADMIT Internal Medicine
DX: G92.8 Other toxic encephalopathy (principal); E87.6 Hypokalemia; G47.00 Insomnia, unspecified; J96.10 Chronic respiratory failure, unspecified whether with hypoxia or hypercapnia; E27.40 Unspecified adrenocortical insufficiency; G82.50 Quadriplegia, unspecified; S14.102S Unspecified injury at C2 level of cervical spinal cord, sequela; F32.A Depression, unspecified; I10 Essential (primary) hypertension; N39.0 Urinary tract infection, site not specified; E83.51 Hypocalcemia; Z87.891 Personal history of nicotine dependence; X58.XXXS Exposure to other specified factors, sequela
CPT/HCPCS: 36415; 36600; 70450; 71045; 80048; 80053; 81001; 82140; 82306; 82330; 82607; 82803; 82947; 84132; 84443; 85025; 87086; 93005; 93010; 94640; 94664; 94762; 96365; 96366; 96367; 96372; 96375; 96376; 99285-25; A9270; G0378; J0610; J0696; J1642; J1650; J3480; J7030; J7040; J7050; J7131

== ENCOUNTER 2022-02-25 13:17 | Inpatient (IN) | payer OTHER ==
[~2022-02-25] VITALS: Ht 167.6 cm; Wt 54.8 kg
[~2022-02-25 13:17] MED LIST changes: -K-Dur 20 meq T20 MEQ PO; +TRAZ150T57 PO; +[UNRECOGNIZED DRUG - OTHER] PO
[2022-02-25 13:49] LABS: BASOPHILS ABSOLUTE AUTO 0.03 K/mm3 (0.00-0.23); BASOPHILS PERCENT AUTO 0 % (0-2); EOSINOPHILS PERCENT AUTO 0 % (0-6); Hematocrit 38.3 % (33.0-51.0); IMMATURE GRAN ABSOLUTE AUTO 0.11 K/mm3 (0.00-0.10); IMMATURE GRAN PERCENT AUTO 0 % (0-1); LYMPHOCYTES ABSOLUTE AUTO 0.21 K/mm3 (0.84-5.20); LYMPHOCYTES PERCENT AUTO 1 % (21-46); MONOCYTES ABSOLUTE AUTO 0.48 K/mm3 (0.16-1.47); MONOCYTES PERCENT AUTO 2 % (4-13); Mean Corpuscular HGB 27.5 pg (26.0-34.0); Mean Corpuscular HGB Conc 31.3 g/dL (31.5-36.5); Mean Corpuscular Volume 88 fL (80-100); Mean Platelet Volume 9.3 fL (9.1-12.4); NEUTROPHILS ABSOLUTE AUTO 23.84 K/mm3 (1.96-9.15); NEUTROPHILS PERCENT AUTO 97 % (41-73); Platelet Count 404 K/mm3 (150-400); RDW Coefficient Variation 16.8 % (11.7-14.2); RDW Standard Deviation 53.8 fL (35.1-46.3); Red Blood Cell Count 4.36 M/mm3 (3.80-5.20); White Blood Cell Count 24.67 K/mm3 (4.00-11.30)
[2022-02-25 14:12] LABS: Albumin, Blood 2.9 g/dL (3.4-5.0); Albumin/Globulin Ratio 0.7 (0.8-1.8); Bilirubin, Total 0.6 mg/dL (0.1-1.0); Bun/Creatinine Ratio 194.4 (12.0-20.0); Calcium, Blood 8.6 mg/dL (8.5-10.1); Creatinine, Blood 0.14 mg/dL (0.40-1.00); Globulin, Blood 4.4 g/dL (2.2-4.0); Potassium, Blood 3.9 mmol/L (3.5-5.5); Total Protein, Blood 7.3 g/dL (6.4-8.2)
[2022-02-25] MEDS ORDERED: PRED20 PO (19:20)
[2022-02-25] MEDS ORDERED: Diflucan100 MG PO (19:21)
[2022-02-25] MEDS ORDERED: FURO20 PO (19:21)
[2022-02-25] MEDS ORDERED: MONT10T PO (19:21)
[2022-02-25] MEDS ORDERED: ALBU90OI INH (19:22)
[2022-02-25] MEDS ORDERED: ATROVENT HFA12.9 GM INH (19:22)
[2022-02-26 04:16] LABS: BASOPHILS ABSOLUTE AUTO 0.01 K/mm3 (0.00-0.23); BASOPHILS PERCENT AUTO 0 % (0-2); EOSINOPHILS PERCENT AUTO 0 % (0-6); Hematocrit 35.6 % (33.0-51.0); Hemoglobin 10.8 g/dL (11.5-16.0); IMMATURE GRAN ABSOLUTE AUTO 0.07 K/mm3 (0.00-0.10); IMMATURE GRAN PERCENT AUTO 1 % (0-1); LYMPHOCYTES ABSOLUTE AUTO 0.33 K/mm3 (0.84-5.20); LYMPHOCYTES PERCENT AUTO 3 % (21-46); MONOCYTES ABSOLUTE AUTO 0.13 K/mm3 (0.16-1.47); MONOCYTES PERCENT AUTO 1 % (4-13); Mean Corpuscular HGB 27.1 pg (26.0-34.0); Mean Corpuscular HGB Conc 30.3 g/dL (31.5-36.5); Mean Corpuscular Volume 89 fL (80-100); Mean Platelet Volume 9.3 fL (9.1-12.4); NEUTROPHILS ABSOLUTE AUTO 10.33 K/mm3 (1.96-9.15); NEUTROPHILS PERCENT AUTO 95 % (41-73); Platelet Count 274 K/mm3 (150-400); RDW Coefficient Variation 16.4 % (11.7-14.2); RDW Standard Deviation 53.3 fL (35.1-46.3); Red Blood Cell Count 3.98 M/mm3 (3.80-5.20); White Blood Cell Count 10.87 K/mm3 (4.00-11.30)
[2022-02-26 04:53] LABS: Alanine Aminotransfer (ALT/SGP 23 U/L (12-78); Albumin, Blood 2.8 g/dL (3.4-5.0); Albumin/Globulin Ratio 0.7 (0.8-1.8); Alk Phos 95 U/L (50-136); Anion Gap 7 mmol/L (6-16); Aspartate Aminotrans (AST/SGOT 9 U/L (12-37); Bilirubin, Total 0.4 mg/dL (0.1-1.0); Blood Urea Nitrogen 19 mg/dL (8-24); Bun/Creatinine Ratio Unable to Calculate (12.0-20.0); CO2, Blood 29 mmol/L (21-32); Calcium, Blood 8.6 mg/dL (8.5-10.1); Chloride, Blood 100 mmol/L (98-108); Creatinine, Blood <0.14 mg/dL (0.40-1.00); Glucose, Blood 391 mg/dL (70-99); Potassium, Blood 2.9 mmol/L (3.5-5.5); Sodium, Blood 136 mmol/L (136-145); Total Protein, Blood 6.8 g/dL (6.4-8.2)
--- NOTE | 2022-02-26 06:24 | NUR ---
SHIFT SUMMARY ER ADMIT. ARRIVAL TO PCU AT 0005. PT ALERT AND ORIENTED X4. AFEBRILE. SR 70-90'S. BP LABILE. MIDODRINE GIVEN Q4 HRS. ON TRACH COLLAR 45/12 W/ 2L O2. SUPRAPUBIC CATH IN PLACE DRAINING YELLOW URINE TO GRAVITY. QUIET SPEECH, BUT ABLE TO MAKE NEEDS KNOWN. TELETYPE INSTALLER CAREGIVER, IN ROOM WITH SPOUSE OVERNIGHT, CAN HELP TRANSLATE. CBG'S DOWN FROM 398 TO 391 AFTER INSULIN ADMINISTRATION AND K+ DOWN FROM 3.9-2.9. DR SANDHU NOTIFIED, 10 UNITS SHORT ACTING ORDERED IN ADDITION TO KCL 40MEQ. PRESSURE ULCERS ON PT SACRUM AND THIGH, CHRONIC WOUNDS MANAGED OUTPATIENT. PT SLEEPING W/ SPOUSE AT SIDE, WILL CONTINUE TO MONITOR UNTIL REPORT GIVEN TO ONCOMING MYLA
[2022-02-26 08:36] LABS: Magnesium, Blood 2.1 mg/dL (1.6-2.4); Phosphorus, Blood 2.3 mg/dL (2.5-4.9)
[2022-02-26] MEDS ORDERED: PSEU120ER PO (09:41)
--- NOTE | 2022-02-26 11:54 | NUR ---
UPDATE WOUNDS TO LEFT HIP, SACRUM, AND RIGHT THIGH CLEANED AND REDRESSED WITH CALCIUM ALGINATE AND FOAM DRESSING. VS STABLE. BP ELEVATED, BUT PT STATES BP DROPS SIGNIFICANTLY WHILE EATING AND REQUESTS MIDODRINE. MIDODRINE PROVIDED PER ORDERS. SPOUSE AT BEDSIDE ASSISTING WITH CARE AND TURNING. WILL CONTINUE TO MONITOR CLOSELY
--- NOTE | 2022-02-26 16:55 | NUR ---
SHIFT SUMMARY PT REMAINS ALERT AND ORIENTED. BP STABLE THIS SHIFT. HR REMAINS NSR. O2 SATS HAVE REMAINED ABOVE 90% ON HOME VENT WITH 3L BLEED IN. PT REPORTS FEELING LIKE SHE ISN'T GETTING ENOUGH AIR THIS EVENING. RT CALLED FOR BREATHING TREATMENT. PT REQUIRING VERY MINIMAL SUCTION OF SECRETIONS THIS SHIFT. SP RAY PATENT AND DRAINING CLEAR YELLOW URINE. PT HAS COMPLAINED OF PAIN ON AND OFF THROUGHOUT SHIFT TO NECK. PT REPOSITIONED Q2H AND MORE FREQUENTLY BY SPOUSE. SPOUSE PROVIDING MOST PERSONAL CARE NEEDS. WILL CONTINUE TO MONITOR CLOSELY AND REPORT OFF TO ONCOMING RN
[2022-02-26] MEDS ORDERED: PSEUDOEPHEDRINE30 M1 PO (17:34)
[2022-02-26 21:26] LABS: Vancomycin, Trough 25.6 ug/mL (5.0-10.0)
[2022-02-27 05:04] LABS: Hematocrit 34.1 % (33.0-51.0); Hemoglobin 10.4 g/dL (11.5-16.0); Mean Corpuscular HGB Conc 30.5 g/dL (31.5-36.5); Mean Corpuscular Volume 89 fL (80-100); Mean Platelet Volume 9.4 fL (9.1-12.4); Platelet Count 293 K/mm3 (150-400); RDW Coefficient Variation 16.6 % (11.7-14.2); RDW Standard Deviation 53.7 fL (35.1-46.3); Red Blood Cell Count 3.85 M/mm3 (3.80-5.20); White Blood Cell Count 9.11 K/mm3 (4.00-11.30)
[2022-02-27 05:51] LABS: Albumin, Blood 2.8 g/dL (3.4-5.0); Anion Gap 6 mmol/L (6-16); Blood Urea Nitrogen 16 mg/dL (8-24); Bun/Creatinine Ratio 114.3 (12.0-20.0); CO2, Blood 32 mmol/L (21-32); Calcium, Blood 8.8 mg/dL (8.5-10.1); Chloride, Blood 98 mmol/L (98-108); Creatinine, Blood 0.14 mg/dL (0.40-1.00); Glomerular Filtration Rate 150 (60-); Glucose, Blood 277 mg/dL (70-99); Phosphorus, Blood 2.4 mg/dL (2.5-4.9); Potassium, Blood 3.6 mmol/L (3.5-5.5); Sodium, Blood 136 mmol/L (136-145)
--- NOTE | 2022-02-27 06:45 | NUR ---
Shift summary. Assumed care at 1900. Pt rested in bed with at bedside throughout shift. Pt on home vent via trach, see RT note for settings. Pt has IV access in R/forearm, NS infusing at 25 ml/hr. Supra-pubic catheter in place, draining to gravity. Pt has pressure ulcers x3, dressings in place, C/D/I. No acute events overnight, VS stable. See shift assessment for further details. Will continue to monitor and report off to dayshift RN.
--- NOTE | 2022-02-27 18:02 | NUR ---
SHIFT SUMMARY PT REMAINS ALERT AND ORIENTED. BP LABILE. PT MEDICATED FOR BP ORDERED AND PT REQUESTS. HR NSR. PT HAS DENIED PAIN THIS SHIFT. SP RAY PATENT AND DRAINING. PT REPOSITIONED Q2H AND MORE OFTEN NEEDED. PT'S SPOUSE HAS PROVIDED MOST PERSONAL CARE NEEDS. PRESSURE ULCERS HAVE BEEN CLEANED AND REDRESSED THIS SHIFT. PICTURES TAKEN OF ALL WOUNDS AND ARE IN THE CHART. PT TITRATED TO 2L THROUGH HOME VENT THIS SHIFT WITH SATS >90%. WILL CONTINUE TO MONITOR CLOSELY AND REPORT TO ONCOMING RN
--- NOTE | 2022-02-28 06:13 | NUR ---
SHIFT SUMMARY PT ALERT AND ORIENTED X4. SPOUSE IN ROOM, ASSISTING WITH CARE. HR SR 80-90'S. AFEBRILE. BP LABILE, MIDODRINE USED Q4 AND PRN. ON HOME TRILOGY VENT W/ 2L SATS OVER 96%. 7-8/10 NECK PAIN, RELIEVED WITH NORCO. SUPRAPUBIC CATH DRAINING YELLOW URINE TO GRAVITY. PT C/O BEING SOB THROUGHOUT THE NIGHT. RT PERFORMED IN-LINE SUCTION AND BREATHING TREATMENTS GIVEN FOR SOME RELIEF. RESTING WITH SPOUSE AT SIDE, WILL CONTINUE TO MONITOR UNTIL REPORT GIVEN TO ONCOMING RN
--- NOTE | 2022-02-28 08:52 | NUR ---
AM NOTE: PATIENT ALERT AND ORIENTED. QUADRAPLEGIC WITH Q2 TURNS AND WOUND CARE. AT BEDSIDE HELPING WITH CARES. LUNGS SOUNDING COARSE, ON HOME TRILOG VENT WITH 2L BLEED IN. RT IN TO ASSIST IN BREATHING TREATMENTS. OCCASIONAL MOIST SOUNDING VOICE. IN-LINE TRACH SUCTION NEEDED. TELE SHOWING SINUS RHYTHM WITH HR 80'S. DENIES CHEST PAIN/PRESSURE. BP LABILE, SCHEDULED MIDODRINE. PATIENT REQUESTING THIS AM AT START OF SHIFT. PALPABLE PERIPHERAL PULSES. SP RAY CATH IN PLACE DRAINING DARK/CLEAR URINE TO GRAVITY. MEDIPORT INFUSING TKO AND ANTIBIOTICS. ACHS BLOOD SUGAR CHECKS. PATIENT DENIES OVERALL PAINS. WILL CONTINUE TO MONITOR. AT BEDSIDE. CALL LIGHT IN REACH. DENIES NEEDS AT THIS TIME.
--- NOTE | 2022-02-28 11:53 | NUR ---
DR. HARP IN TO ASSESS PATIENT. TITRATED OFF O2 AND ONTO ROOM AIR. PATIENT DESATED TO 86%. PLACED ON 1L 02 VIA VENT AND SATING MID 90'S. WILL LEAVE PATIENT AT 1L FOR NOW. REQUESTING MIDODRINE AND NORCO PRIOR TO EATING MEALS. WILL PLAN FOR DINNER TONIGHT. TEMP TRANDING UP AT 99.7, PATIENT REQUESTING TYLENOL, CALL PLACED TO DR. DOMINIQUE FOR ORDERS. TYLENOL ADMINISTERED. DENIES NEEDS AT THIS TIME. WILL CONTINUE TO MONITOR.
--- NOTE | 2022-02-28 17:57 | NUR ---
SHIFT SUMMARY: NO ACUTE CHANGES. PATIENT TITRATED TO ROOM AIR AND DOING WELL. SATS REMAINS IN MID - HIGH 90'S. BREATHING TREATMENTS PRN. PATIENTS STATES SHE IS FEELING BETTER OVERALL. ANTIBIOTICS INFUSED THIS AM. TELE CONTINUES TO SHOW SINUS RHYTHM WITH HR 80'S. DENIES CHEST PAIN/PRESSURE. MIDODRINE SCHEDULED AND ONE PRN DOSE GIVEN PER PATIENT REQUEST. REMAINS AT BEDSIDE HELPING WITH CARES. PATIENT IN WHEELCHAIR AT THIS TIME FOR COMFORT. USING LIFT FOR TRANSFERS. TOLERATING PO DIET. ACHS BLOOD SUGARS WITH INSULIN COVERAGE. MEDICATED WITH NORCO PRN FOR NECK PAIN. PATIENT IN GOOD SPIRITS. DENIES NEEDS AT THIS TIME WILL CONTINUE TO MONITOR AND REPORT OFF TO ONCOMING RN.
[2022-03-01 04:44] LABS: BASOPHILS ABSOLUTE AUTO 0.01 K/mm3 (0.00-0.23); BASOPHILS PERCENT AUTO 0 % (0-2); EOSINOPHILS PERCENT AUTO 0 % (0-6); Hematocrit 34.4 % (33.0-51.0); Hemoglobin 10.6 g/dL (11.5-16.0); IMMATURE GRAN ABSOLUTE AUTO 0.06 K/mm3 (0.00-0.10); IMMATURE GRAN PERCENT AUTO 1 % (0-1); LYMPHOCYTES ABSOLUTE AUTO 0.24 K/mm3 (0.84-5.20); LYMPHOCYTES PERCENT AUTO 3 % (21-46); MONOCYTES ABSOLUTE AUTO 0.25 K/mm3 (0.16-1.47); MONOCYTES PERCENT AUTO 4 % (4-13); Mean Corpuscular HGB 27.2 pg (26.0-34.0); Mean Corpuscular HGB Conc 30.8 g/dL (31.5-36.5); Mean Corpuscular Volume 88 fL (80-100); Mean Platelet Volume 9.2 fL (9.1-12.4); NEUTROPHILS ABSOLUTE AUTO 6.66 K/mm3 (1.96-9.15); NEUTROPHILS PERCENT AUTO 92 % (41-73); Platelet Count 285 K/mm3 (150-400); RDW Coefficient Variation 16.1 % (11.7-14.2); RDW Standard Deviation 52.4 fL (35.1-46.3); White Blood Cell Count 7.22 K/mm3 (4.00-11.30)
--- NOTE | 2022-03-01 06:03 | NUR ---
SHIFT SUMMARY PT ALERT AND ORIENTED X4. SPOUSE IN ROOM, ASSISTING W/ CARE. PT STARTED SHIFT IN CHAIR AND REPORTED BEING MUCH BETTER TODAY, MOVE TO BED VIA CIRILO AFTER MEDICATIONS GIVEN. SATS ABLE TO MAINTAIN ON VENT RA WHILE IN CHAIR BUT 1-2L NEEDED IN BED. AFEBRILE. HR SR 70-80'S. BP MANAGED WITH MIDODRINE.CONTINUES TO HAVE SOME CHRONIC R NECK PAIN, MEDICATED PER EMAR. MEDIPORT HEPARIN LOCKED. IN BED SLEEPING WITH CALL ALARM AT SIDE, WILL CONTINUE TO MONITOR UNTIL REPORT GIVEN
[2022-03-01] MEDS ORDERED: MASOPHEN325 M3 PO (12:41)
[2022-03-01] MEDS ORDERED: JUVEN PACKET1 EAC3 PO (12:41)
[2022-03-01] MEDS ORDERED: CLOT10 MT (12:42)
[2022-03-01] MEDS ORDERED: [UNRECOGNIZED DRUG - CODE] PO (12:42)
[2022-03-01] MEDS ORDERED: Promod946 ML PO (12:43)
[2022-03-01] MEDS ORDERED: SULTRIDS PO (12:43)
[2022-03-01] MEDS ORDERED: VISBIOME 112.51 EACH PO (12:45)
[2022-03-01] MEDS ORDERED: METF500 PO (12:46)
--- NOTE | 2022-03-01 14:03 | NUR ---
DISCHARGE; PT D/C VIA WHEELCHAIR @1400. DISCHARGE INSTRUCTIONS REVIEWED. ALL BELONGINGS WENT [facility] PT AND FAMILY.
== END 2022-03-01 13:51 | disposition home or self-care (01) | DRG 208 ==
LOC: ER 13:17 → PCU 18:14 → ERHOLD 18:14 → PCU 23:48
PROVIDERS: Family Medicine; Internal Medicine; Physician Assistant; ADMIT Internal Medicine
PROC: 5A1945Z Respiratory Ventilation, 24-96 Consecutive Hours (ICD-10-PCS; principal; 2022-02-25)
DX: J15.6 Pneumonia due to other Gram-negative bacteria (principal); G82.50 Quadriplegia, unspecified; J96.21 Acute and chronic respiratory failure with hypoxia; E27.40 Unspecified adrenocortical insufficiency; E87.2 Acidosis; F41.8 Other specified anxiety disorders; K21.9 Gastro-esophageal reflux disease without esophagitis; R73.9 Hyperglycemia, unspecified; E87.6 Hypokalemia; T38.0X5A Adverse effect of glucocorticoids and synthetic analogues, initial encounter; L89.150 Pressure ulcer of sacral region, unstageable; Z79.899 Other long term (current) drug therapy; Z79.82 Long term (current) use of aspirin; E83.39 Other disorders of phosphorus metabolism; Z93.0 Tracheostomy status; Z87.891 Personal history of nicotine dependence
CPT/HCPCS: 36415; 71045; 71046; 80053; 80069; 80202; 82947; 83036; 83605; 83735; 83880; 84100; 84484; 85025; 85027; 87040; 87070; 87077; 87106; 87186; 87205; 87252; 87254; 94640; 94664; 94761; 94762; 96365; 96366; 96375; 99285-25; A9270; C8929; J0713; J1642; J1650; J1815; J1956; J2185; J2405; J2930; J3370; J3480; J7030; J7050; Q9957

== ENCOUNTER 2022-03-12 23:13 | Emergency (ER) | payer OTHER ==
[~2022-03-12] VITALS: Ht 170.2 cm; Wt 51.3 kg
[~2022-03-12 23:13] MED LIST changes: +ATROVENT HFA12.9 GM INH; +Diflucan100 MG PO; +JUVEN PACKET1 EAC3 PO; +MASOPHEN325 M3 PO; +METF500 PO; +MONT10T PO; +PRED20 PO; +PSEUDOEPHEDRINE30 M1 PO; +Promod946 ML PO; +VISBIOME 112.51 EACH PO; +[UNRECOGNIZED DRUG - CODE] PO
[2022-03-12] MEDS ORDERED: Ventolin5 MG/1 ML INH (23:39)
[2022-03-12] MEDS ORDERED: PRED20 (23:40)
[2022-03-12] MEDS ORDERED: FURO20 PO (23:41)
[2022-03-12] MEDS ORDERED: PROM25 (23:42)
[2022-03-12] MEDS ORDERED: ZOLP10 PO (23:42)
[2022-03-12] MEDS ORDERED: ATROVENT HFA12.9 GM (23:42)
[2022-03-12] MEDS ORDERED: MONT10T PO (23:42)
[2022-03-12] MEDS ORDERED: ONDA4 PO (23:42)
[2022-03-13 00:45] LABS: BASOPHILS ABSOLUTE AUTO 0.02 K/mm3 (0.00-0.23); BASOPHILS PERCENT AUTO 0 % (0-2); EOSINOPHILS PERCENT AUTO 0 % (0-6); Hematocrit 36.7 % (33.0-51.0); Hemoglobin 11.5 g/dL (11.5-16.0); IMMATURE GRAN ABSOLUTE AUTO 0.12 K/mm3 (0.00-0.10); IMMATURE GRAN PERCENT AUTO 1 % (0-1); LYMPHOCYTES ABSOLUTE AUTO 0.98 K/mm3 (0.84-5.20); LYMPHOCYTES PERCENT AUTO 7 % (21-46); MONOCYTES ABSOLUTE AUTO 0.54 K/mm3 (0.16-1.47); MONOCYTES PERCENT AUTO 4 % (4-13); Mean Corpuscular HGB 27.4 pg (26.0-34.0); Mean Corpuscular HGB Conc 31.3 g/dL (31.5-36.5); Mean Corpuscular Volume 88 fL (80-100); Mean Platelet Volume 8.8 fL (9.1-12.4); NEUTROPHILS ABSOLUTE AUTO 11.72 K/mm3 (1.96-9.15); NEUTROPHILS PERCENT AUTO 88 % (41-73); Platelet Count 327 K/mm3 (150-400); RDW Coefficient Variation 16.9 % (11.7-14.2); RDW Standard Deviation 51.9 fL (35.1-46.3); Red Blood Cell Count 4.19 M/mm3 (3.80-5.20); White Blood Cell Count 13.38 K/mm3 (4.00-11.30)
[2022-03-13 01:06] LABS: Anion Gap 8 mmol/L (6-16); Blood Urea Nitrogen 10 mg/dL (8-24); Bun/Creatinine Ratio Unable to Calculate (12.0-20.0); CO2, Blood 29 mmol/L (21-32); Calcium, Blood 8.1 mg/dL (8.5-10.1); Chloride, Blood 92 mmol/L (98-108); Creatinine, Blood <0.14 mg/dL (0.40-1.00); Glucose, Blood 177 mg/dL (70-99); Potassium, Blood 5.5 mmol/L (3.5-5.5); Sodium, Blood 129 mmol/L (136-145)
[2022-03-13] MEDS ORDERED: LEVAQUIN750 MG PO (01:33)
== END 2022-03-13 03:29 | disposition home or self-care (01) ==
LOC: ER 23:13
PROVIDERS: Student in an Organized Health Care Education/Training Program
DX: R09.3 Abnormal sputum (principal); I10 Essential (primary) hypertension; K21.9 Gastro-esophageal reflux disease without esophagitis; Z91.018 Allergy to other foods; Z79.82 Long term (current) use of aspirin; Z79.52 Long term (current) use of systemic steroids; Z87.891 Personal history of nicotine dependence
CPT/HCPCS: 36415; 71045; 80048; 85025; A9270; J1956

== ENCOUNTER → 2022-04-13 | Outpatient (CLI) | payer OTHER ==
[~2022-04-13] MED LIST changes: +ATROVENT HFA12.9 GM; +FENO48 PO; +LEVAQUIN750 MG PO; +PRED20; +Ventolin5 MG/1 ML INH
[2022-04-15 09:06] LABS: Stool Occult Bld Immuno 1 Negative (NEGATIVE)
== END | disposition home or self-care (01) ==
LOC: LAB SHORT 22:00 → LAB 22:00 → LAB FUT 04-12 17:35
PROVIDERS: Nurse Practitioner Family
DX: D64.9 Anemia, unspecified (principal)
CPT/HCPCS: 82274

== ENCOUNTER 2022-04-24 21:45 | Emergency (ER) | payer OTHER ==
[~2022-04-24] VITALS: Ht 170.2 cm; Wt 51.3 kg
[~2022-04-24 21:45] MED LIST changes: -FENO48 PO
[2022-04-24] MEDS ORDERED: FENO48 PO (22:09)
[2022-04-24] MEDS ORDERED: Diflucan100 MG PO (22:12)
[2022-04-24] MEDS ORDERED: FURO20 PO (22:15)
[2022-04-24 22:27] LABS: BASOPHILS ABSOLUTE AUTO 0.01 K/mm3 (0.00-0.23); BASOPHILS PERCENT AUTO 0 % (0-2); EOSINOPHILS PERCENT AUTO 0 % (0-6); Hematocrit 31.4 % (33.0-51.0); Hemoglobin 9.1 g/dL (11.5-16.0); IMMATURE GRAN ABSOLUTE AUTO 0.05 K/mm3 (0.00-0.10); IMMATURE GRAN PERCENT AUTO 0 % (0-1); LYMPHOCYTES ABSOLUTE AUTO 0.74 K/mm3 (0.84-5.20); LYMPHOCYTES PERCENT AUTO 6 % (21-46); MONOCYTES ABSOLUTE AUTO 0.59 K/mm3 (0.16-1.47); MONOCYTES PERCENT AUTO 5 % (4-13); Mean Corpuscular HGB 26.2 pg (26.0-34.0); Mean Corpuscular Volume 91 fL (80-100); NEUTROPHILS ABSOLUTE AUTO 10.76 K/mm3 (1.96-9.15); NEUTROPHILS PERCENT AUTO 89 % (41-73); Platelet Count 547 K/mm3 (150-400); RDW Coefficient Variation 18.6 % (11.7-14.2); RDW Standard Deviation 60.6 fL (35.1-46.3); Red Blood Cell Count 3.47 M/mm3 (3.80-5.20); White Blood Cell Count 12.15 K/mm3 (4.00-11.30)
[2022-04-24 22:46] LABS: Albumin, Blood 3.1 g/dL (3.4-5.0); Albumin/Globulin Ratio 0.8 (0.8-1.8); Bilirubin, Total 0.3 mg/dL (0.1-1.0); Bun/Creatinine Ratio 280.8 (12.0-20.0); Calcium, Blood 8.6 mg/dL (8.5-10.1); Creatinine, Blood 0.15 mg/dL (0.40-1.00); Potassium, Blood 5.1 mmol/L (3.5-5.5); Total Protein, Blood 7.1 g/dL (6.4-8.2)
[2022-04-25 00:10] LABS: Influenza A, PCR NEGATIVE (NEGATIVE); Influenza B, PCR NEGATIVE (NEGATIVE); Resp Syncytial Virus, PCR NEGATIVE (NEGATIVE); SARS-Cov-2 (COVID-19) PCR, MMC NEGATIVE (NEGATIVE)
[2022-04-26] MEDS ORDERED: Macrobid 100 M100 MG PO (21:25)
== END 2022-04-25 00:29 | disposition home or self-care (01) ==
LOC: ER 21:45
PROVIDERS: Student in an Organized Health Care Education/Training Program
DX: R50.9 Fever, unspecified (principal); D72.829 Elevated white blood cell count, unspecified; D64.9 Anemia, unspecified; G82.50 Quadriplegia, unspecified; I10 Essential (primary) hypertension; K21.9 Gastro-esophageal reflux disease without esophagitis; Z93.0 Tracheostomy status; Z99.11 Dependence on respirator [ventilator] status; Z20.822 Contact with and (suspected) exposure to COVID-19; Z91.018 Allergy to other foods; Z79.899 Other long term (current) drug therapy; Z79.82 Long term (current) use of aspirin; Z87.891 Personal history of nicotine dependence
CPT/HCPCS: 0241U; 36415; 71046; 80053; 83605; 85025; 87040; J1170; J2405; J7030

== ENCOUNTER 2022-05-24 00:12 | Day surgery (SDC) | payer OTHER ==
[~2022-05-24 00:12] MED LIST changes: +FENO48 PO
[2022-05-24 15:14] LABS: BASOPHILS ABSOLUTE AUTO 0.04 K/mm3 (0.00-0.23); BASOPHILS PERCENT AUTO 0 % (0-2); EOSINOPHILS ABSOLUTE AUTO 0.01 K/mm3 (0.00-0.68); EOSINOPHILS PERCENT AUTO 0 % (0-6); Hematocrit 32.3 % (33.0-51.0); Hemoglobin 9.3 g/dL (11.5-16.0); IMMATURE GRAN ABSOLUTE AUTO 0.08 K/mm3 (0.00-0.10); IMMATURE GRAN PERCENT AUTO 0 % (0-1); LYMPHOCYTES ABSOLUTE AUTO 0.37 K/mm3 (0.84-5.20); LYMPHOCYTES PERCENT AUTO 2 % (21-46); MONOCYTES ABSOLUTE AUTO 0.53 K/mm3 (0.16-1.47); MONOCYTES PERCENT AUTO 3 % (4-13); Mean Corpuscular HGB 27.3 pg (26.0-34.0); Mean Corpuscular HGB Conc 28.8 g/dL (31.5-36.5); Mean Corpuscular Volume 95 fL (80-100); Mean Platelet Volume 9.3 fL (9.1-12.4); NEUTROPHILS PERCENT AUTO 95 % (41-73); Platelet Count 504 K/mm3 (150-400); RDW Coefficient Variation 19.5 % (11.7-14.2); RDW Standard Deviation 67.7 fL (35.1-46.3); Red Blood Cell Count 3.41 M/mm3 (3.80-5.20); White Blood Cell Count 18.83 K/mm3 (4.00-11.30)
[2022-05-24 15:25] LABS: C-REACTIVE PROTEIN, EXT RANGE 2.12 mg/dL (0.000-0.300)
[2022-05-24 15:31] LABS: Albumin, Blood 2.3 g/dL (3.4-5.0); Albumin/Globulin Ratio 0.6 (0.8-1.8); Bilirubin, Total 0.2 mg/dL (0.1-1.0); Bun/Creatinine Ratio 104.7 (12.0-20.0); Calcium, Blood 8.5 mg/dL (8.5-10.1); Creatine Kinase MB 1.2 ng/mL (0.0-3.6); Creatinine, Blood 0.17 mg/dL (0.40-1.00); Potassium, Blood 4.1 mmol/L (3.5-5.5); Total Protein, Blood 6.3 g/dL (6.4-8.2)
== END 2022-05-24 13:54 | disposition home or self-care (01) ==
LOC: ATC 00:12
PROVIDERS: Internal Medicine Infectious Disease
DX: J15.1 Pneumonia due to Pseudomonas (principal); M86.9 Osteomyelitis, unspecified; Z93.0 Tracheostomy status; J96.11 Chronic respiratory failure with hypoxia; J96.12 Chronic respiratory failure with hypercapnia
CPT/HCPCS: 36591; 80053; 82550; 82553; 85025; 85651; 86140; J1642

== ENCOUNTER 2022-05-31 01:42 | Day surgery (SDC) | payer OTHER ==
[2022-05-31 15:05] LABS: BASOPHILS ABSOLUTE AUTO 0.03 K/mm3 (0.00-0.23); BASOPHILS PERCENT AUTO 0 % (0-2); EOSINOPHILS ABSOLUTE AUTO 0.04 K/mm3 (0.00-0.68); EOSINOPHILS PERCENT AUTO 0 % (0-6); Hematocrit 31.5 % (33.0-51.0); IMMATURE GRAN PERCENT AUTO 1 % (0-1); LYMPHOCYTES ABSOLUTE AUTO 0.43 K/mm3 (0.84-5.20); LYMPHOCYTES PERCENT AUTO 3 % (21-46); MONOCYTES ABSOLUTE AUTO 0.67 K/mm3 (0.16-1.47); MONOCYTES PERCENT AUTO 4 % (4-13); Mean Corpuscular HGB 26.9 pg (26.0-34.0); Mean Corpuscular HGB Conc 28.6 g/dL (31.5-36.5); Mean Corpuscular Volume 94 fL (80-100); Mean Platelet Volume 9.3 fL (9.1-12.4); NEUTROPHILS ABSOLUTE AUTO 15.86 K/mm3 (1.96-9.15); NEUTROPHILS PERCENT AUTO 93 % (41-73); Platelet Count 451 K/mm3 (150-400); RDW Coefficient Variation 18.7 % (11.7-14.2); RDW Standard Deviation 65.2 fL (35.1-46.3); Red Blood Cell Count 3.34 M/mm3 (3.80-5.20); White Blood Cell Count 17.13 K/mm3 (4.00-11.30)
[2022-05-31 15:10] LABS: CPK Creatine Kinase 23 U/L (26-193)
[2022-05-31 15:14] LABS: Alanine Aminotransfer (ALT/SGP 19 U/L (12-78); Albumin, Blood 2.2 g/dL (3.4-5.0); Albumin/Globulin Ratio 0.6 (0.8-1.8); Alk Phos 97 U/L (50-136); Anion Gap 5 mmol/L (6-16); Aspartate Aminotrans (AST/SGOT 11 U/L (12-37); Bilirubin, Total 0.3 mg/dL (0.1-1.0); Blood Urea Nitrogen 31 mg/dL (8-24); Bun/Creatinine Ratio Unable to Calculate (12.0-20.0); CO2, Blood 31 mmol/L (21-32); Calcium, Blood 8.7 mg/dL (8.5-10.1); Chloride, Blood 102 mmol/L (98-108); Creatinine, Blood <0.14 mg/dL (0.40-1.00); Glucose, Blood 165 mg/dL (70-99); Potassium, Blood 4.5 mmol/L (3.5-5.5); Sodium, Blood 138 mmol/L (136-145); Total Protein, Blood 6.2 g/dL (6.4-8.2)
[2022-05-31] MEDS ORDERED: LEVOFLOXACIN750 MG PO (17:53)
[2022-05-31] MEDS ORDERED: DAPTOMYCIN500 M3 IV (17:54)
[2022-05-31] MEDS ORDERED: TAZICEF2 G2 IV (17:54)
== END 2022-05-31 13:51 | disposition home or self-care (01) ==
LOC: ATC 01:42
PROVIDERS: Internal Medicine Infectious Disease
DX: J15.1 Pneumonia due to Pseudomonas (principal); M86.9 Osteomyelitis, unspecified
CPT/HCPCS: 36591; 80053; 82550; 85025; 85651; 86140; J1642

== ENCOUNTER 2022-06-07 02:40 | Day surgery (SDC) | payer OTHER ==
[~2022-06-07 02:40] MED LIST changes: +DAPTOMYCIN500 M3 IV; +LEVOFLOXACIN750 MG PO
[2022-06-07 15:11] LABS: BASOPHILS ABSOLUTE AUTO 0.03 K/mm3 (0.00-0.23); BASOPHILS PERCENT AUTO 0 % (0-2); EOSINOPHILS ABSOLUTE AUTO 0.03 K/mm3 (0.00-0.68); EOSINOPHILS PERCENT AUTO 0 % (0-6); Hematocrit 32.1 % (33.0-51.0); Hemoglobin 9.3 g/dL (11.5-16.0); IMMATURE GRAN ABSOLUTE AUTO 0.07 K/mm3 (0.00-0.10); IMMATURE GRAN PERCENT AUTO 0 % (0-1); LYMPHOCYTES ABSOLUTE AUTO 0.28 K/mm3 (0.84-5.20); LYMPHOCYTES PERCENT AUTO 2 % (21-46); MONOCYTES ABSOLUTE AUTO 0.63 K/mm3 (0.16-1.47); MONOCYTES PERCENT AUTO 3 % (4-13); Mean Corpuscular HGB 27.8 pg (26.0-34.0); Mean Corpuscular Volume 96 fL (80-100); Mean Platelet Volume 9.9 fL (9.1-12.4); NEUTROPHILS ABSOLUTE AUTO 17.23 K/mm3 (1.96-9.15); NEUTROPHILS PERCENT AUTO 94 % (41-73); Platelet Count 429 K/mm3 (150-400); RDW Coefficient Variation 18.1 % (11.7-14.2); RDW Standard Deviation 63.4 fL (35.1-46.3); Red Blood Cell Count 3.34 M/mm3 (3.80-5.20); White Blood Cell Count 18.27 K/mm3 (4.00-11.30)
[2022-06-07 15:36] LABS: C-REACTIVE PROTEIN, EXT RANGE 6.7 mg/dL (0.000-0.300)
[2022-06-07 15:40] LABS: Albumin, Blood 2.1 g/dL (3.4-5.0); Albumin/Globulin Ratio 0.5 (0.8-1.8); Bilirubin, Total 0.3 mg/dL (0.1-1.0); Bun/Creatinine Ratio 113.2 (12.0-20.0); Calcium, Blood 8.1 mg/dL (8.5-10.1); Creatine Kinase MB 1.8 ng/mL (0.0-3.6); Creatine Kinase MB Index 6.2 (0.0-4.0); Creatinine, Blood 0.16 mg/dL (0.40-1.00); Potassium, Blood 4.2 mmol/L (3.5-5.5); Total Protein, Blood 6.1 g/dL (6.4-8.2)
== END 2022-06-07 14:03 | disposition home or self-care (01) ==
LOC: ATC 02:40
PROVIDERS: Nurse Practitioner Family
DX: D72.829 Elevated white blood cell count, unspecified (principal); Z88.1 Allergy status to other antibiotic agents; J96.11 Chronic respiratory failure with hypoxia; J96.12 Chronic respiratory failure with hypercapnia; Z93.0 Tracheostomy status
CPT/HCPCS: 36591; 80053; 82550; 82553; 85025; 85651; 86140; J1642

== ENCOUNTER 2022-06-14 00:48 | Day surgery (SDC) | payer OTHER ==
[2022-06-14 16:08] LABS: BASOPHILS ABSOLUTE AUTO 0.04 K/mm3 (0.00-0.23); BASOPHILS PERCENT AUTO 0 % (0-2); EOSINOPHILS ABSOLUTE AUTO 0.04 K/mm3 (0.00-0.68); EOSINOPHILS PERCENT AUTO 0 % (0-6); IMMATURE GRAN ABSOLUTE AUTO 0.09 K/mm3 (0.00-0.10); IMMATURE GRAN PERCENT AUTO 1 % (0-1); LYMPHOCYTES PERCENT AUTO 4 % (21-46); MONOCYTES ABSOLUTE AUTO 0.68 K/mm3 (0.16-1.47); MONOCYTES PERCENT AUTO 5 % (4-13); Mean Corpuscular Volume 93 fL (80-100); Mean Platelet Volume 9.5 fL (9.1-12.4); NEUTROPHILS ABSOLUTE AUTO 11.47 K/mm3 (1.96-9.15); NEUTROPHILS PERCENT AUTO 90 % (41-73); Platelet Count 644 K/mm3 (150-400); RDW Coefficient Variation 17.1 % (11.7-14.2); RDW Standard Deviation 58.9 fL (35.1-46.3); Red Blood Cell Count 3.33 M/mm3 (3.80-5.20); White Blood Cell Count 12.82 K/mm3 (4.00-11.30)
[2022-06-14 16:34] LABS: CPK Creatine Kinase 21 U/L (26-193)
[2022-06-14 16:40] LABS: Alanine Aminotransfer (ALT/SGP 17 U/L (12-78); Albumin, Blood 2.2 g/dL (3.4-5.0); Albumin/Globulin Ratio 0.5 (0.8-1.8); Alk Phos 93 U/L (50-136); Anion Gap 7 mmol/L (6-16); Aspartate Aminotrans (AST/SGOT 11 U/L (12-37); Bilirubin, Total 0.2 mg/dL (0.1-1.0); Blood Urea Nitrogen 25 mg/dL (8-24); Bun/Creatinine Ratio Unable to Calculate (12.0-20.0); CO2, Blood 30 mmol/L (21-32); Calcium, Blood 8.3 mg/dL (8.5-10.1); Chloride, Blood 99 mmol/L (98-108); Creatinine, Blood <0.14 mg/dL (0.40-1.00); Globulin, Blood 4.4 g/dL (2.2-4.0); Glucose, Blood 230 mg/dL (70-99); Phosphorus, Blood 2.4 mg/dL (2.5-4.9); Potassium, Blood 4.1 mmol/L (3.5-5.5); Sodium, Blood 136 mmol/L (136-145); Total Protein, Blood 6.6 g/dL (6.4-8.2)
--- NOTE | 2022-06-14 17:04 | NUR ---
LAB WORK DRAWN FROM [facility]. 7CC OF BLOOD DISCARDED. 8CC OF BLOOD DRAWN OFF FOR LABS. LINE FLUSHED WITH 20CC OF NS. THAN NEEDLE DISCONTINUED.
== END 2022-06-14 14:30 | disposition home or self-care (01) ==
LOC: LAB 00:48 → ATC 00:48
PROVIDERS: Internal Medicine Infectious Disease
DX: J47.9 Bronchiectasis, uncomplicated (principal); R05.9 Cough, unspecified; J96.12 Chronic respiratory failure with hypercapnia; J96.11 Chronic respiratory failure with hypoxia
CPT/HCPCS: 36591; 80053; 82550; 84100; 85025; 85651; 86140; J1642

== ENCOUNTER 2022-06-20 00:47 | Day surgery (SDC) | payer OTHER ==
[2022-06-20 14:49] LABS: BASOPHILS ABSOLUTE AUTO 0.04 K/mm3 (0.00-0.23); BASOPHILS PERCENT AUTO 0 % (0-2); EOSINOPHILS ABSOLUTE AUTO 0.18 K/mm3 (0.00-0.68); EOSINOPHILS PERCENT AUTO 2 % (0-6); Hematocrit 28.8 % (33.0-51.0); Hemoglobin 8.5 g/dL (11.5-16.0); IMMATURE GRAN ABSOLUTE AUTO 0.08 K/mm3 (0.00-0.10); IMMATURE GRAN PERCENT AUTO 1 % (0-1); LYMPHOCYTES ABSOLUTE AUTO 0.68 K/mm3 (0.84-5.20); LYMPHOCYTES PERCENT AUTO 7 % (21-46); MONOCYTES ABSOLUTE AUTO 0.74 K/mm3 (0.16-1.47); MONOCYTES PERCENT AUTO 8 % (4-13); Mean Corpuscular HGB 26.9 pg (26.0-34.0); Mean Corpuscular HGB Conc 29.5 g/dL (31.5-36.5); Mean Corpuscular Volume 91 fL (80-100); NEUTROPHILS ABSOLUTE AUTO 7.97 K/mm3 (1.96-9.15); NEUTROPHILS PERCENT AUTO 82 % (41-73); Platelet Count 542 K/mm3 (150-400); RDW Coefficient Variation 16.5 % (11.7-14.2); RDW Standard Deviation 55.4 fL (35.1-46.3); Red Blood Cell Count 3.16 M/mm3 (3.80-5.20); White Blood Cell Count 9.69 K/mm3 (4.00-11.30)
[2022-06-20 15:09] LABS: C-REACTIVE PROTEIN, EXT RANGE 6.68 mg/dL (0.000-0.300)
[2022-06-20 15:11] LABS: Albumin, Blood 1.9 g/dL (3.4-5.0); Albumin/Globulin Ratio 0.4 (0.8-1.8); Bilirubin, Total 0.2 mg/dL (0.1-1.0); Bun/Creatinine Ratio 84.8 (12.0-20.0); Calcium, Blood 8.3 mg/dL (8.5-10.1); Creatinine, Blood 0.17 mg/dL (0.40-1.00); Globulin, Blood 4.4 g/dL (2.2-4.0); Potassium, Blood 3.8 mmol/L (3.5-5.5); Total Protein, Blood 6.3 g/dL (6.4-8.2)
== END 2022-06-20 14:48 | disposition home or self-care (01) ==
LOC: ATC 00:47
PROVIDERS: Internal Medicine Infectious Disease
DX: M86.40 Chronic osteomyelitis with draining sinus, unspecified site (principal)
CPT/HCPCS: 80053; 82550; 85025; 85651; 86140; J0878; J1642

== ENCOUNTER 2022-06-28 00:20 | Day surgery (SDC) | payer OTHER ==
[2022-06-28 15:24] LABS: BASOPHILS ABSOLUTE AUTO 0.02 K/mm3 (0.00-0.23); BASOPHILS PERCENT AUTO 0 % (0-2); EOSINOPHILS ABSOLUTE AUTO 0.02 K/mm3 (0.00-0.68); EOSINOPHILS PERCENT AUTO 0 % (0-6); Hematocrit 26.5 % (33.0-51.0); Hemoglobin 7.9 g/dL (11.5-16.0); IMMATURE GRAN ABSOLUTE AUTO 0.07 K/mm3 (0.00-0.10); IMMATURE GRAN PERCENT AUTO 1 % (0-1); LYMPHOCYTES ABSOLUTE AUTO 0.48 K/mm3 (0.84-5.20); LYMPHOCYTES PERCENT AUTO 4 % (21-46); MONOCYTES ABSOLUTE AUTO 0.63 K/mm3 (0.16-1.47); MONOCYTES PERCENT AUTO 5 % (4-13); Mean Corpuscular HGB 26.4 pg (26.0-34.0); Mean Corpuscular HGB Conc 29.8 g/dL (31.5-36.5); Mean Corpuscular Volume 89 fL (80-100); Mean Platelet Volume 9.6 fL (9.1-12.4); NEUTROPHILS ABSOLUTE AUTO 11.81 K/mm3 (1.96-9.15); NEUTROPHILS PERCENT AUTO 91 % (41-73); Platelet Count 540 K/mm3 (150-400); RDW Coefficient Variation 16.4 % (11.7-14.2); RDW Standard Deviation 53.6 fL (35.1-46.3); Red Blood Cell Count 2.99 M/mm3 (3.80-5.20); White Blood Cell Count 13.03 K/mm3 (4.00-11.30)
[2022-06-28 15:59] LABS: Alanine Aminotransfer (ALT/SGP 16 U/L (12-78); Albumin/Globulin Ratio 0.4 (0.8-1.8); Alk Phos 82 U/L (50-136); Anion Gap 5 mmol/L (6-16); Aspartate Aminotrans (AST/SGOT 9 U/L (12-37); Bilirubin, Total 0.2 mg/dL (0.1-1.0); Blood Urea Nitrogen 14 mg/dL (8-24); Bun/Creatinine Ratio Unable to Calculate (12.0-20.0); CO2, Blood 29 mmol/L (21-32); Calcium, Blood 8.6 mg/dL (8.5-10.1); Chloride, Blood 99 mmol/L (98-108); Creatinine, Blood <0.14 mg/dL (0.40-1.00); Globulin, Blood 4.5 g/dL (2.2-4.0); Glucose, Blood 111 mg/dL (70-99); Potassium, Blood 4.4 mmol/L (3.5-5.5); Sodium, Blood 133 mmol/L (136-145); Total Protein, Blood 6.5 g/dL (6.4-8.2)
== END 2022-06-28 13:55 | disposition home or self-care (01) ==
LOC: ATC 00:20
PROVIDERS: Internal Medicine Infectious Disease
DX: J47.9 Bronchiectasis, uncomplicated (principal); R05.9 Cough, unspecified; Z93.0 Tracheostomy status; J96.11 Chronic respiratory failure with hypoxia; J96.12 Chronic respiratory failure with hypercapnia; Z87.891 Personal history of nicotine dependence; Z88.0 Allergy status to penicillin
CPT/HCPCS: 36591; 80053; 83036; 85025; 85651; 86140; J1642

== ENCOUNTER 2022-07-06 02:58 | Day surgery (SDC) | payer OTHER ==
[2022-07-06 15:32] LABS: BASOPHILS ABSOLUTE AUTO 0.05 K/mm3 (0.00-0.23); BASOPHILS PERCENT AUTO 0 % (0-2); EOSINOPHILS ABSOLUTE AUTO 0.03 K/mm3 (0.00-0.68); EOSINOPHILS PERCENT AUTO 0 % (0-6); Hematocrit 30.3 % (33.0-51.0); IMMATURE GRAN ABSOLUTE AUTO 0.11 K/mm3 (0.00-0.10); IMMATURE GRAN PERCENT AUTO 1 % (0-1); LYMPHOCYTES ABSOLUTE AUTO 0.63 K/mm3 (0.84-5.20); LYMPHOCYTES PERCENT AUTO 4 % (21-46); MONOCYTES ABSOLUTE AUTO 0.97 K/mm3 (0.16-1.47); MONOCYTES PERCENT AUTO 6 % (4-13); Mean Corpuscular HGB 26.1 pg (26.0-34.0); Mean Corpuscular HGB Conc 29.7 g/dL (31.5-36.5); Mean Corpuscular Volume 88 fL (80-100); Mean Platelet Volume 8.8 fL (9.1-12.4); NEUTROPHILS ABSOLUTE AUTO 13.82 K/mm3 (1.96-9.15); NEUTROPHILS PERCENT AUTO 89 % (41-73); Platelet Count 733 K/mm3 (150-400); RDW Coefficient Variation 16.2 % (11.7-14.2); Red Blood Cell Count 3.45 M/mm3 (3.80-5.20); White Blood Cell Count 15.61 K/mm3 (4.00-11.30)
[2022-07-06 15:49] LABS: C-REACTIVE PROTEIN, EXT RANGE 7.09 mg/dL (0.000-0.300)
[2022-07-06 15:51] LABS: Albumin/Globulin Ratio 0.4 (0.8-1.8); Bilirubin, Total 0.2 mg/dL (0.1-1.0); Bun/Creatinine Ratio 123.7 (12.0-20.0); Calcium, Blood 8.5 mg/dL (8.5-10.1); Creatinine, Blood 0.19 mg/dL (0.40-1.00); Globulin, Blood 4.5 g/dL (2.2-4.0); Potassium, Blood 4.9 mmol/L (3.5-5.5); Total Protein, Blood 6.5 g/dL (6.4-8.2)
== END 2022-07-06 14:20 | disposition home or self-care (01) ==
LOC: ATC 02:58
PROVIDERS: Internal Medicine Infectious Disease
DX: R05.9 Cough, unspecified (principal); J96.12 Chronic respiratory failure with hypercapnia; J96.11 Chronic respiratory failure with hypoxia; J47.9 Bronchiectasis, uncomplicated; Z93.0 Tracheostomy status; Z87.891 Personal history of nicotine dependence; Z99.3 Dependence on wheelchair; Z79.82 Long term (current) use of aspirin; Z79.899 Other long term (current) drug therapy; Z88.1 Allergy status to other antibiotic agents
CPT/HCPCS: 36591; 80053; 85025; 85651; 86140; J1642

== ENCOUNTER → 2022-08-16 | Outpatient (CLI) | payer OTHER | LOC: LAB 11:26 → LAB SHORT 11:26 | DX: J47.1 Bronchiectasis with (acute) exacerbation (principal) | CPT/HCPCS: 87070; 87077; 87186; 87205 ==

== ENCOUNTER 2022-08-23 03:07 | Day surgery (SDC) | payer OTHER ==
--- NOTE | 2022-08-23 11:57 | NUR ---
PT WAS ACCESSED AT 1121. FLUSHED WITH 20NS AND FLUSHED [facility] HEPARIN 50 UNITS.
[2022-08-23 12:05] LABS: CPK Creatine Kinase 22 U/L (26-193)
[2022-08-23 12:28] LABS: Alanine Aminotransfer (ALT/SGP 13 U/L (12-78); Albumin/Globulin Ratio 0.5 (0.8-1.8); Alk Phos 95 U/L (50-136); Anion Gap 2 mmol/L (6-16); Aspartate Aminotrans (AST/SGOT 11 U/L (12-37); Bilirubin, Total 0.3 mg/dL (0.1-1.0); Blood Urea Nitrogen 27 mg/dL (8-24); Bun/Creatinine Ratio Unable to Calculate (12.0-20.0); CO2, Blood 32 mmol/L (21-32); Calcium, Blood 8.2 mg/dL (8.5-10.1); Chloride, Blood 102 mmol/L (98-108); Creatinine, Blood <0.14 mg/dL (0.40-1.00); Globulin, Blood 4.3 g/dL (2.2-4.0); Glucose, Blood 101 mg/dL (70-99); Potassium, Blood 4.6 mmol/L (3.5-5.5); Sodium, Blood 136 mmol/L (136-145); Total Protein, Blood 6.3 g/dL (6.4-8.2)
[2022-08-23 12:42] LABS: BASOPHILS ABSOLUTE AUTO 0.03 K/mm3 (0.00-0.23); BASOPHILS PERCENT AUTO 0 % (0-2); EOSINOPHILS ABSOLUTE AUTO 0.03 K/mm3 (0.00-0.68); EOSINOPHILS PERCENT AUTO 0 % (0-6); Hematocrit 30.6 % (33.0-51.0); Hemoglobin 8.9 g/dL (11.5-16.0); IMMATURE GRAN PERCENT AUTO 1 % (0-1); LYMPHOCYTES ABSOLUTE AUTO 0.45 K/mm3 (0.84-5.20); LYMPHOCYTES PERCENT AUTO 3 % (21-46); MONOCYTES ABSOLUTE AUTO 0.52 K/mm3 (0.16-1.47); MONOCYTES PERCENT AUTO 3 % (4-13); Mean Corpuscular HGB 25.1 pg (26.0-34.0); Mean Corpuscular HGB Conc 29.1 g/dL (31.5-36.5); Mean Corpuscular Volume 86 fL (80-100); Mean Platelet Volume 9.5 fL (9.1-12.4); NEUTROPHILS ABSOLUTE AUTO 15.52 K/mm3 (1.96-9.15); NEUTROPHILS PERCENT AUTO 93 % (41-73); Platelet Count 598 K/mm3 (150-400); RDW Standard Deviation 59.7 fL (35.1-46.3); Red Blood Cell Count 3.54 M/mm3 (3.80-5.20); White Blood Cell Count 16.65 K/mm3 (4.00-11.30)
== END 2022-08-23 11:25 | disposition home or self-care (01) ==
LOC: ATC 03:07
PROVIDERS: Internal Medicine Infectious Disease
DX: M86.9 Osteomyelitis, unspecified (principal); Z88.1 Allergy status to other antibiotic agents; Z79.899 Other long term (current) drug therapy; Z79.82 Long term (current) use of aspirin; Z87.891 Personal history of nicotine dependence
CPT/HCPCS: 36591; 80053; 82550; 85025; 85651; 86140; J1642

== ENCOUNTER 2022-08-30 00:15 | Day surgery (SDC) | payer OTHER ==
[2022-08-30 12:26] LABS: BASOPHILS ABSOLUTE AUTO 0.04 K/mm3 (0.00-0.23); BASOPHILS PERCENT AUTO 0 % (0-2); EOSINOPHILS ABSOLUTE AUTO 0.02 K/mm3 (0.00-0.68); EOSINOPHILS PERCENT AUTO 0 % (0-6); Hematocrit 31.7 % (33.0-51.0); IMMATURE GRAN PERCENT AUTO 1 % (0-1); LYMPHOCYTES ABSOLUTE AUTO 0.58 K/mm3 (0.84-5.20); LYMPHOCYTES PERCENT AUTO 3 % (21-46); MONOCYTES ABSOLUTE AUTO 0.72 K/mm3 (0.16-1.47); MONOCYTES PERCENT AUTO 4 % (4-13); Mean Corpuscular HGB 25.4 pg (26.0-34.0); Mean Corpuscular HGB Conc 28.4 g/dL (31.5-36.5); Mean Corpuscular Volume 90 fL (80-100); Mean Platelet Volume 9.2 fL (9.1-12.4); NEUTROPHILS ABSOLUTE AUTO 16.61 K/mm3 (1.96-9.15); NEUTROPHILS PERCENT AUTO 92 % (41-73); Platelet Count 627 K/mm3 (150-400); RDW Coefficient Variation 20.7 % (11.7-14.2); RDW Standard Deviation 64.7 fL (35.1-46.3); Red Blood Cell Count 3.54 M/mm3 (3.80-5.20); White Blood Cell Count 18.07 K/mm3 (4.00-11.30)
--- NOTE | 2022-08-30 12:31 | NUR ---
BLOOD DRAWN FROM THE MEDIPORT. FLUSHED WITH 10CC AND WITHDREW 8CC OF BLOOD AND DISCARDED. WITHDREW 10CC OF BLOOD FOR LABS. FLUSHED WITH 10CC OF NS AND THAN DISCCONTINUED MEDIPORT NEEDLE.
[2022-08-30 12:54] LABS: Alanine Aminotransfer (ALT/SGP 13 U/L (12-78); Albumin, Blood 1.9 g/dL (3.4-5.0); Albumin/Globulin Ratio 0.4 (0.8-1.8); Alk Phos 86 U/L (50-136); Anion Gap 1 mmol/L (6-16); Aspartate Aminotrans (AST/SGOT 12 U/L (12-37); Bilirubin, Total 0.2 mg/dL (0.1-1.0); Blood Urea Nitrogen 19 mg/dL (8-24); Bun/Creatinine Ratio 120.3 (12.0-20.0); CO2, Blood 39 mmol/L (21-32); CPK Creatine Kinase 20 U/L (26-193); Calcium, Blood 8.6 mg/dL (8.5-10.1); Chloride, Blood 96 mmol/L (98-108); Creatinine, Blood 0.16 mg/dL (0.40-1.00); Globulin, Blood 4.5 g/dL (2.2-4.0); Glomerular Filtration Rate 146 (60-); Glucose, Blood 97 mg/dL (70-99); Phosphorus, Blood 2.1 mg/dL (2.5-4.9); Potassium, Blood 4.8 mmol/L (3.5-5.5); Sodium, Blood 136 mmol/L (136-145); Total Protein, Blood 6.4 g/dL (6.4-8.2)
== END 2022-08-30 12:00 | disposition home or self-care (01) ==
LOC: ATC 00:15
PROVIDERS: Internal Medicine Infectious Disease
DX: M86.9 Osteomyelitis, unspecified (principal); Z79.899 Other long term (current) drug therapy; Z79.82 Long term (current) use of aspirin; Z99.11 Dependence on respirator [ventilator] status; Z87.891 Personal history of nicotine dependence
CPT/HCPCS: 36591; 80053; 82550; 83036; 84100; 85025; 85651; 86140; J1642

== ENCOUNTER 2022-09-08 02:11 | Day surgery (SDC) | payer OTHER ==
[2022-09-08 11:34] LABS: BASOPHILS ABSOLUTE AUTO 0.03 K/mm3 (0.00-0.23); BASOPHILS PERCENT AUTO 0 % (0-2); EOSINOPHILS ABSOLUTE AUTO 0.03 K/mm3 (0.00-0.68); EOSINOPHILS PERCENT AUTO 0 % (0-6); Hematocrit 32.6 % (33.0-51.0); Hemoglobin 9.2 g/dL (11.5-16.0); IMMATURE GRAN ABSOLUTE AUTO 0.08 K/mm3 (0.00-0.10); IMMATURE GRAN PERCENT AUTO 1 % (0-1); LYMPHOCYTES ABSOLUTE AUTO 0.31 K/mm3 (0.84-5.20); LYMPHOCYTES PERCENT AUTO 2 % (21-46); MONOCYTES ABSOLUTE AUTO 0.74 K/mm3 (0.16-1.47); MONOCYTES PERCENT AUTO 5 % (4-13); Mean Corpuscular HGB 25.8 pg (26.0-34.0); Mean Corpuscular HGB Conc 28.2 g/dL (31.5-36.5); Mean Corpuscular Volume 91 fL (80-100); Mean Platelet Volume 9.3 fL (9.1-12.4); NEUTROPHILS ABSOLUTE AUTO 14.75 K/mm3 (1.96-9.15); NEUTROPHILS PERCENT AUTO 93 % (41-73); Platelet Count 459 K/mm3 (150-400); RDW Coefficient Variation 21.5 % (11.7-14.2); Red Blood Cell Count 3.57 M/mm3 (3.80-5.20); White Blood Cell Count 15.94 K/mm3 (4.00-11.30)
[2022-09-08 11:52] LABS: CPK Creatine Kinase 18 U/L (26-193)
[2022-09-08 12:03] LABS: Alanine Aminotransfer (ALT/SGP 18 U/L (12-78); Albumin, Blood 1.9 g/dL (3.4-5.0); Albumin/Globulin Ratio 0.4 (0.8-1.8); Alk Phos 95 U/L (50-136); Anion Gap 4 mmol/L (6-16); Aspartate Aminotrans (AST/SGOT 10 U/L (12-37); Bilirubin, Total 0.2 mg/dL (0.1-1.0); Blood Urea Nitrogen 9 mg/dL (8-24); Bun/Creatinine Ratio Unable to Calculate (12.0-20.0); CO2, Blood 33 mmol/L (21-32); Calcium, Blood 8.8 mg/dL (8.5-10.1); Chloride, Blood 99 mmol/L (98-108); Creatine Kinase MB <1.0 ng/mL (0.0-3.6); Creatine Kinase MB Index Unable to Calculate (0.0-4.0); Creatinine, Blood <0.14 mg/dL (0.40-1.00); Globulin, Blood 4.4 g/dL (2.2-4.0); Glucose, Blood 92 mg/dL (70-99); Potassium, Blood 4.4 mmol/L (3.5-5.5); Sodium, Blood 136 mmol/L (136-145); Total Protein, Blood 6.3 g/dL (6.4-8.2)
[2022-09-13 02:10] LABS: CK-BB 0 % (0); CK-MB 0 % (0-3); CK-MM 100 % (97-100); MACRO TYPE 1 0 % (Not Observed); MACRO TYPE 2 0 % (Not Observed)
== END 2022-09-08 11:21 | disposition home or self-care (01) ==
LOC: ATC 02:11
PROVIDERS: Internal Medicine Infectious Disease
DX: J47.9 Bronchiectasis, uncomplicated (principal); J96.11 Chronic respiratory failure with hypoxia; Z93.0 Tracheostomy status
CPT/HCPCS: 36591; 80053; 82550; 82552; 82553; 85025; 85651; 86140; J1642

== ENCOUNTER → 2022-09-29 | Outpatient (CLI) | payer OTHER | END | disposition home or self-care (01) | LOC: LAB 15:43 → LAB SHORT 15:43 | DX: J47.1 Bronchiectasis with (acute) exacerbation (principal) | CPT/HCPCS: 87070; 87077; 87186; 87205 ==

== ENCOUNTER → 2022-09-30 | Outpatient (CLI) | payer OTHER ==
[2022-09-30 16:57] LABS: Source, Urine Voided
[2022-09-30 18:43] LABS: Appearance, Urine Clear (Clear); Bilirubin, Urine Neg (Neg); Blood, Urine 2+ (Neg); Color, Urine Yellow (P-Yellow); Glucose Qualitative, Urine Neg (Neg); Ketones, Urine Neg (Neg); Leukocyte Esterase, Urine 3+ (Neg); Nitrite, Urine Neg (Neg); Protein, Urine 1+ (Neg); Specific Gravity, Urine 1.005 (1.003-1.022); Urobilinogen, Urine NORM (Normal)
[2022-09-30 18:50] LABS: Bacteria Many /hpf; Hyaline Casts 0-2 /lpf (0-2); Squamous Epithelial Cells Mod /hpf (Few); Transitional Epithelial Cells Rare /hpf (0-Rare); Triple Phosphate Crystals Rare /hpf
== END | disposition home or self-care (01) ==
LOC: LAB SHORT 16:56 → LAB 16:56
PROVIDERS: Nurse Practitioner Family
DX: R50.9 Fever, unspecified (principal)
CPT/HCPCS: 81001; 87086

== ENCOUNTER 2022-10-02 14:06 | Inpatient (IN) | payer OTHER ==
[~2022-10-02] VITALS: Ht 167.6 cm; Wt 59.0 kg
[2022-10-02 15:41] LABS: BASOPHILS ABSOLUTE AUTO 0.03 K/mm3 (0.00-0.23); BASOPHILS PERCENT AUTO 0 % (0-2); EOSINOPHILS ABSOLUTE AUTO 0.03 K/mm3 (0.00-0.68); EOSINOPHILS PERCENT AUTO 0 % (0-6); Hematocrit 30.9 % (33.0-51.0); Hemoglobin 9.4 g/dL (11.5-16.0); IMMATURE GRAN ABSOLUTE AUTO 0.07 K/mm3 (0.00-0.10); IMMATURE GRAN PERCENT AUTO 0 % (0-1); LYMPHOCYTES ABSOLUTE AUTO 0.46 K/mm3 (0.84-5.20); LYMPHOCYTES PERCENT AUTO 3 % (21-46); MONOCYTES ABSOLUTE AUTO 1.08 K/mm3 (0.16-1.47); MONOCYTES PERCENT AUTO 7 % (4-13); Mean Corpuscular HGB 25.6 pg (26.0-34.0); Mean Corpuscular HGB Conc 30.4 g/dL (31.5-36.5); Mean Corpuscular Volume 84 fL (80-100); Mean Platelet Volume 8.5 fL (9.1-12.4); NEUTROPHILS ABSOLUTE AUTO 14.25 K/mm3 (1.96-9.15); NEUTROPHILS PERCENT AUTO 90 % (41-73); Platelet Count 652 K/mm3 (150-400); Red Blood Cell Count 3.67 M/mm3 (3.80-5.20); White Blood Cell Count 15.92 K/mm3 (4.00-11.30)
[2022-10-02 16:11] LABS: Alanine Aminotransfer (ALT/SGP 16 U/L (12-78); Albumin, Blood 1.6 g/dL (3.4-5.0); Albumin/Globulin Ratio 0.3 (0.8-1.8); Alk Phos 107 U/L (50-136); Anion Gap 5 mmol/L (6-16); Aspartate Aminotrans (AST/SGOT 13 U/L (12-37); Bilirubin, Total 0.2 mg/dL (0.1-1.0); Blood Urea Nitrogen 10 mg/dL (8-24); Bun/Creatinine Ratio Unable to Calculate (12.0-20.0); CO2, Blood 21 mmol/L (21-32); Calcium, Blood 7.9 mg/dL (8.5-10.1); Chloride, Blood 102 mmol/L (98-108); Creatinine, Blood <0.14 mg/dL (0.40-1.00); Globulin, Blood 4.6 g/dL (2.2-4.0); Glucose, Blood 124 mg/dL (70-99); Potassium, Blood 4.4 mmol/L (3.5-5.5); Sodium, Blood 128 mmol/L (136-145); Total Protein, Blood 6.2 g/dL (6.4-8.2)
[2022-10-02 18:26] LABS: Source, Urine Suprapubic Cath
[2022-10-02 18:32] LABS: Appearance, Urine Hazy (Clear); Bilirubin, Urine Neg (Neg); Blood, Urine 1+ (Neg); Glucose Qualitative, Urine Neg (Neg); Ketones, Urine Neg (Neg); Leukocyte Esterase, Urine 3+ (Neg); Nitrite, Urine Neg (Neg); Protein, Urine Neg (Neg); Urobilinogen, Urine NORM (Normal)
[2022-10-02 18:40] LABS: Color, Urine Pale Yellow (P-Yellow)
[2022-10-02 18:41] LABS: Amorphous Light (0-Heavy); Bacteria Many /hpf; Calcium Oxalate Crystals Rare /hpf; Red Blood Cells, Urine 0-2 /hpf (0-2); Squamous Epithelial Cells Not Seen /hpf (Few)
[2022-10-02 23:28] VITALS: BP 126/82
[2022-10-02 23:30] VITALS: BP 118/87
[2022-10-03] VITALS (11 sets, daily range): BP systolic 92–146; BP diastolic 60–88
[2022-10-03 05:11] LABS: BASOPHILS ABSOLUTE AUTO 0.02 K/mm3 (0.00-0.23); BASOPHILS PERCENT AUTO 0 % (0-2); EOSINOPHILS ABSOLUTE AUTO 0.13 K/mm3 (0.00-0.68); EOSINOPHILS PERCENT AUTO 1 % (0-6); Hematocrit 26.5 % (33.0-51.0); IMMATURE GRAN ABSOLUTE AUTO 0.06 K/mm3 (0.00-0.10); IMMATURE GRAN PERCENT AUTO 1 % (0-1); LYMPHOCYTES ABSOLUTE AUTO 0.67 K/mm3 (0.84-5.20); LYMPHOCYTES PERCENT AUTO 7 % (21-46); MONOCYTES ABSOLUTE AUTO 0.73 K/mm3 (0.16-1.47); MONOCYTES PERCENT AUTO 8 % (4-13); Mean Corpuscular HGB 25.2 pg (26.0-34.0); Mean Corpuscular HGB Conc 30.2 g/dL (31.5-36.5); Mean Corpuscular Volume 83 fL (80-100); Mean Platelet Volume 8.3 fL (9.1-12.4); NEUTROPHILS PERCENT AUTO 82 % (41-73); Platelet Count 559 K/mm3 (150-400); RDW Coefficient Variation 17.9 % (11.7-14.2); RDW Standard Deviation 54.7 fL (35.1-46.3); Red Blood Cell Count 3.18 M/mm3 (3.80-5.20); White Blood Cell Count 9.11 K/mm3 (4.00-11.30)
[2022-10-03 05:30] LABS: Magnesium, Blood 1.5 mg/dL (1.6-2.4)
[2022-10-03 06:03] LABS: Alanine Aminotransfer (ALT/SGP 16 U/L (12-78); Albumin, Blood 1.4 g/dL (3.4-5.0); Albumin/Globulin Ratio 0.4 (0.8-1.8); Alk Phos 94 U/L (50-136); Anion Gap 2 mmol/L (6-16); Aspartate Aminotrans (AST/SGOT 7 U/L (12-37); Bilirubin, Total 0.2 mg/dL (0.1-1.0); Blood Urea Nitrogen 6 mg/dL (8-24); Bun/Creatinine Ratio Unable to Calculate (12.0-20.0); CO2, Blood 28 mmol/L (21-32); Calcium, Blood 7.5 mg/dL (8.5-10.1); Chloride, Blood 106 mmol/L (98-108); Creatinine, Blood <0.14 mg/dL (0.40-1.00); Globulin, Blood 3.9 g/dL (2.2-4.0); Glucose, Blood 91 mg/dL (70-99); Potassium, Blood 2.9 mmol/L (3.5-5.5); Sodium, Blood 136 mmol/L (136-145); Total Protein, Blood 5.3 g/dL (6.4-8.2)
--- NOTE | 2022-10-03 06:33 | NUR ---
SHIFT SUMMARY PATIENT ALERT AND ORIENTED. VITALS STABLE. PATIENT ON HOME VENT WITH O2 SAT >91%. NO FEVER SINCE ADMISSION. AT BEDSIDE SINCE ADMISSION AND ASSISTS WITH ALL CARE. SUPRAPUBIC CATH IN PLACE WITH ADEQUATE OUTPUT. SIGNIFICANT WOUNDS ON BILAT HIPS AND COCCYX. PRN MIDODRINE GIVEN FOR HYPOTENSION. NO OTHER CHANGES, WILL REPORT TO DAY SHIFT RN.
--- NOTE | 2022-10-03 09:24 | NUR ---
AM NOTE PT ALERT AND ORIENTATED WITH AT BEDSIDE. LR INFUSING TKO THROUGH MEDIPORT. HOME VENTILATOR AT BEDSIDE AT HER USUSAL SETTINGS. PT HAS COMPLAINTS OFCHRONIC SHOOTING NECK PAIN MEDICATED PER MAR. PT UPDATED ON MEDICATION CHANGES AND PLAN OF CARE. PT IS REQUESTING A WOUND CARE CONSULT OF SACRAL AND HIP WOUNDS. DENIES ANY OTHER NEEDS AT THIS TIME.
--- NOTE | 2022-10-03 17:03 | NUR ---
SHIFT SUMMARY PT REMAINED ALERT AND ORIENTATED THROUGHOUT THE SHIFT. PT STARTED ON MAG AND K+ FOR HYPOMAGNEGIA AND HYPOKALEMIA. PT MEDICATED FOR PAIN PRN PER EMAR. WOUND CARE CONSULT PROVIDED FOR SACRAL AND HIP WOUNDS. DENIES WANTING STAFF TO CHANGE DRESSINGS PROVIDED IN THE ER. IV ABX DURING PM, RE-EVAL IN THE AM.
--- NOTE | 2022-10-03 17:58 | NUR ---
I have reviewed the nursing students documentation and am in agreement
--- NOTE | 2022-10-03 22:30 | NUR ---
WOUNDS PATIENT'S CALLED AND REQUESTED WOUND DRESSINGS BE CHANGED D/T LEAKING. UPON FURTHER ASSESSMENT, WOUNDS ON BILAT HIPS AND COCCYX WERE DRAINING CLEAR FLUID. MEPILEXES REMOVED AND WOUND WAS CLEANED WITH GAUZE AND WOUND CLEANSER. WOUNDS WERE GENTLY REPACKED WITH GAUZE THAT WAS DAMPENED WITH THE WOUND CLEANSER AND NEW MEPILEXES PLACED. PATIENT AWAITING INPATIENT WOUND CONSULT.
[2022-10-04 04:20] VITALS: BP 158/80
--- NOTE | 2022-10-04 06:02 | NUR ---
SHIFT SUMMARY PATIENT ALERT, ORIENTED x1-2. VITALS STABLE, PATIENT ALTERNATING BETWEEN CPAP AND HI FLOW NC WITH O2 SAT >91%. PATIENT BECOMES LETHARGIC IF OFF CPAP FOR TOO LONG. PATIENT WILL FREQUENTLY TAKE O2 OUT OF NOSE AND DESAT BUT IS ABLE TO RECOVER ONCE O2 IS REPLACED. PATIENT PARTICIPATING IN MORE CARE DURING THE NIGHT. IS ABLE TO ASSIST STAFF WITH ATTENDS CHANGES AND IS TURNING HERSELF IN BED. PUREWICK AND ATTENDS IN PLACE. SIGNIFICANT OTHER AT BEDSIDE. NO OTHER CHANGES, WILL REPORT TO DAY SHIFT RN.
--- NOTE | 2022-10-04 06:42 | NUR ---
SHIFT SUMMARY PATIENT ALERT AND ORIENTED. VITALS STABLE, PATIENT REMAINS ON HOME VENT WITH O2 SAT >91%, NO FEVERS DURING THE NIGHT. SUPRAPUBIC CATH IN PLACE DRAINING CLEAR/YELLOW URINE. AT BEDSIDE ASSISTING WITH ALL CARE. SEE PREVIOUS NOTE REGARDING WOUND DRESSING CHANGE. NO OTHER CHANGES, WILL REPORT TO DAY SHIFT RN.
[2022-10-04 07:00] VITALS: BP 182/104
[2022-10-04 08:58] LABS: BASOPHILS ABSOLUTE AUTO 0.02 K/mm3 (0.00-0.23); BASOPHILS PERCENT AUTO 0 % (0-2); EOSINOPHILS ABSOLUTE AUTO 0.09 K/mm3 (0.00-0.68); EOSINOPHILS PERCENT AUTO 1 % (0-6); Hematocrit 27.7 % (33.0-51.0); Hemoglobin 8.3 g/dL (11.5-16.0); IMMATURE GRAN ABSOLUTE AUTO 0.08 K/mm3 (0.00-0.10); IMMATURE GRAN PERCENT AUTO 1 % (0-1); LYMPHOCYTES ABSOLUTE AUTO 1.16 K/mm3 (0.84-5.20); LYMPHOCYTES PERCENT AUTO 15 % (21-46); MONOCYTES PERCENT AUTO 9 % (4-13); Mean Corpuscular HGB 25.3 pg (26.0-34.0); Mean Corpuscular Volume 85 fL (80-100); Mean Platelet Volume 8.5 fL (9.1-12.4); NEUTROPHILS ABSOLUTE AUTO 5.88 K/mm3 (1.96-9.15); NEUTROPHILS PERCENT AUTO 74 % (41-73); Platelet Count 575 K/mm3 (150-400); RDW Standard Deviation 56.4 fL (35.1-46.3); Red Blood Cell Count 3.28 M/mm3 (3.80-5.20); White Blood Cell Count 7.93 K/mm3 (4.00-11.30)
--- NOTE | 2022-10-04 09:23 | NUR ---
AM NOTE PT IS ALERT AND ORIENTATED, ON HOME VENT, WITH AT BEDSIDE. PT HAD A COMPLAINT OF CHRONIC NECK PAIN MEDICATED PER MAR. ALSO, SHE HAD A COMPLAINT OF SHORTNESS OF BREATH, RT INFORMED FOR PRN BREATHING TREATMENT. DENIES CHEST PAIN, DIZZINESS, NAUSEA, OR ANY OTHER COMPLAINTS AT THIS TIME. WOUND CARE CONSULTATION FOR TODAY. WILL CONTINUE TO MONITOR TO PATIENT.
[2022-10-04 09:33] LABS: Anion Gap 3 mmol/L (6-16); Blood Urea Nitrogen 8 mg/dL (8-24); CO2, Blood 25 mmol/L (21-32); Calcium, Blood 7.5 mg/dL (8.5-10.1); Chloride, Blood 107 mmol/L (98-108); Creatinine, Blood <0.14 mg/dL (0.40-1.00); Glucose, Blood 167 mg/dL (70-99); Potassium, Blood 3.8 mmol/L (3.5-5.5); Sodium, Blood 135 mmol/L (136-145)
[2022-10-04 09:34] LABS: Bun/Creatinine Ratio Unable to Calculate (12.0-20.0)
--- NOTE | 2022-10-04 10:03 | NUR ---
WOUND CARE NURSE AT BEDSIDE. DENIES ANY OTHER NEEDS AT THIS TIME.
[2022-10-04 11:38] VITALS: BP 152/92
[2022-10-04] MEDS ORDERED: VISBIOME 112.51 EACH PO (11:58)
[2022-10-04 13:00] VITALS: BP 157/91
--- NOTE | 2022-10-04 13:27 | NUR ---
DICHARGE NOTE PT REMOVED FROM TELEMTRY. MEDIPORT DEACCESSED WITH HEPARIN FLUSH. PT EDUCATED ON CHANGES IN HOME MEDICATIONS. PT ADVISED TO CALL PCP OFFICE TO SCHEDULE AN APPOINTMENT WITHIN A WEEK. PT WAS DRESSED AND CIRILO LIFTED TO HER HOME WHEELCHAIR AND ESCORTED TO HER POV.
--- NOTE | 2022-10-04 16:22 | NUR ---
I have reviewed the nursing students documentation and am in agreement.
== END 2022-10-04 13:27 | disposition home or self-care (01) | DRG 871 ==
LOC: ER 14:06 → PCU 14:07
PROVIDERS: Internal Medicine; Nurse Practitioner Acute Care; Physician Assistant; ADMIT Internal Medicine
PROC: 3E03329 Introduction of Other Anti-infective into Peripheral Vein, Percutaneous Approach (ICD-10-PCS; principal; 2022-10-03)
PROC: 5A1935Z Respiratory Ventilation, Less than 24 Consecutive Hours (ICD-10-PCS; 2022-10-03)
DX: A41.53 Sepsis due to Serratia (principal); G82.52 Quadriplegia, C1-C4 incomplete; J15.6 Pneumonia due to other Gram-negative bacteria; L89.224 Pressure ulcer of left hip, stage 4; J96.20 Acute and chronic respiratory failure, unspecified whether with hypoxia or hypercapnia; Z99.11 Dependence on respirator [ventilator] status; E87.20 Acidosis, unspecified; E27.40 Unspecified adrenocortical insufficiency; D84.89 Other immunodeficiencies; T83.510A Infection and inflammatory reaction due to cystostomy catheter, initial encounter; N39.0 Urinary tract infection, site not specified; F41.9 Anxiety disorder, unspecified; F32.A Depression, unspecified; E11.9 Type 2 diabetes mellitus without complications; I95.9 Hypotension, unspecified; S71.002A Unspecified open wound, left hip, initial encounter; L89.150 Pressure ulcer of sacral region, unstageable; T38.0X5A Adverse effect of glucocorticoids and synthetic analogues, initial encounter; Z93.0 Tracheostomy status; Z98.1 Arthrodesis status; Z98.890 Other specified postprocedural states; Z87.891 Personal history of nicotine dependence; S14.153S Other incomplete lesion at C3 level of cervical spinal cord, sequela; Z74.01 Bed confinement status; Z87.442 Personal history of urinary calculi; Z91.018 Allergy to other foods; Z87.440 Personal history of urinary (tract) infections; Z86.718 Personal history of other venous thrombosis and embolism; Z79.52 Long term (current) use of systemic steroids; Z79.84 Long term (current) use of oral hypoglycemic drugs; Z79.82 Long term (current) use of aspirin; Z79.899 Other long term (current) drug therapy; Y84.6 Urinary catheterization as the cause of abnormal reaction of the patient, or of later complication, without mention of misadventure at the time of the procedure
CPT/HCPCS: 36415; 71045; 72193; 80048; 80053; 81001; 82947; 83605; 83735; 84145; 85025; 85651; 86140; 87040; 87077; 87086; 87186; 93005; 93010; 94640; 94664; 94762; 96361; 96365-59; 96366; 96367; 96372; 96375-59; 99285-25; A9270; G0378; J0456; J0696; J1200; J1642; J1650; J1956; J2405; J3475; J3480; J7050; J7120; Q9967

== ENCOUNTER 2022-11-08 02:25 | Day surgery (SDC) | payer OTHER ==
[2022-11-08 17:27] VITALS: BP 136/92
[2022-11-08 18:29] LABS: Base Excess Venous -2.8 mmol/L; Bicarbonate Venous 22.1 mmol/L (24.0-30.0); PCO2 Venous 46.4 mmHg (38-42); pH Blood Venous 7.31 (7.34-7.37)
[2022-11-08 19:06] LABS: Prealbumin, Blood 14.7 mg/dL (20.0-40.0)
[2022-11-08 19:14] LABS: Albumin, Blood 1.5 g/dL (3.4-5.0); Anion Gap 4 mmol/L (6-16); Blood Urea Nitrogen 8 mg/dL (8-24); Bun/Creatinine Ratio Unable to Calculate (12.0-20.0); CO2, Blood 25 mmol/L (21-32); Calcium, Blood 7.7 mg/dL (8.5-10.1); Chloride, Blood 110 mmol/L (98-108); Creatinine, Blood <0.14 mg/dL (0.40-1.00); Glucose, Blood 150 mg/dL (70-99); Phosphorus, Blood 3.1 mg/dL (2.5-4.9); Potassium, Blood 4.4 mmol/L (3.5-5.5); Sodium, Blood 139 mmol/L (136-145)
== END 2022-11-08 17:45 | disposition home or self-care (01) ==
LOC: ATC 02:25
PROVIDERS: Internal Medicine Critical Care Medicine; Nurse Practitioner Family
DX: J47.9 Bronchiectasis, uncomplicated (principal); J96.12 Chronic respiratory failure with hypercapnia; J96.11 Chronic respiratory failure with hypoxia; Z93.0 Tracheostomy status; Z79.82 Long term (current) use of aspirin; Z88.1 Allergy status to other antibiotic agents; Z87.891 Personal history of nicotine dependence
CPT/HCPCS: 36593; 80069; 82803; 84134; 99213; J1642; J2997

== ENCOUNTER → 2022-11-10 | Outpatient (CLI) | payer OTHER ==
[~2022-11-10] MED LIST changes: +CEFTRIAXON1 GM/50 M1 IV; +Fenofibrate134 MG PO; +GENTAMICIN IV
== END ==
LOC: LAB SHORT 15:45 → LAB 15:45
DX: R05.1 Acute cough (principal); R32 Unspecified urinary incontinence
CPT/HCPCS: 87102; 87106

== ENCOUNTER → 2022-11-15 | Outpatient (CLI) | payer OTHER ==
[~2022-11-15] MED LIST changes: -CEFTRIAXON1 GM/50 M1 IV; -Fenofibrate134 MG PO; -GENTAMICIN IV
== END | disposition home or self-care (01) ==
LOC: LAB SHORT 13:00 → LAB 13:00
DX: R05.1 Acute cough (principal)
CPT/HCPCS: 87070; 87077; 87186; 87205

== ENCOUNTER 2022-11-24 12:07 | Inpatient (IN) | payer OTHER ==
[~2022-11-24] VITALS: Ht 165.1 cm; Wt 62.4 kg
[2022-11-24 12:40] LABS: Source, Urine Suprapubic Cath
[2022-11-24 13:05] LABS: Appearance, Urine Hazy (Clear); Bilirubin, Urine Neg (Neg); Blood, Urine 4+ (Neg); Color, Urine Yellow (P-Yellow); Glucose Qualitative, Urine Neg (Neg); Ketones, Urine Neg (Neg); Leukocyte Esterase, Urine 3+ (Neg); Nitrite, Urine Pos (Neg); Protein, Urine Neg (Neg); Urobilinogen, Urine NORM (Normal)
[2022-11-24 13:20] LABS: Hematocrit 28.1 % (33.0-51.0); Hemoglobin 8.4 g/dL (11.5-16.0); Mean Corpuscular HGB 25.5 pg (26.0-34.0); Mean Corpuscular HGB Conc 29.9 g/dL (31.5-36.5); Mean Corpuscular Volume 85 fL (80-100); Mean Platelet Volume 8.4 fL (9.1-12.4); Platelet Count 682 K/mm3 (150-400); RDW Coefficient Variation 18.6 % (11.7-14.2); RDW Standard Deviation 58.6 fL (35.1-46.3); Red Blood Cell Count 3.29 M/mm3 (3.80-5.20); White Blood Cell Count 24.87 K/mm3 (4.00-11.30)
[2022-11-24 13:27] LABS: Bacteria Mod /hpf; Mucus Mod (0-Heavy); Squamous Epithelial Cells Few /hpf (Few)
[2022-11-24 13:28] LABS: Calcium Oxalate Crystals Few /hpf
[2022-11-24 13:42] LABS: Alanine Aminotransfer (ALT/SGP 15 U/L (12-78); Albumin, Blood 1.5 g/dL (3.4-5.0); Albumin/Globulin Ratio 0.3 (0.8-1.8); Alk Phos 85 U/L (50-136); Anion Gap 7 mmol/L (6-16); Aspartate Aminotrans (AST/SGOT 11 U/L (12-37); Bilirubin, Total 0.3 mg/dL (0.1-1.0); Blood Urea Nitrogen 11 mg/dL (8-24); Bun/Creatinine Ratio Unable to Calculate (12.0-20.0); CO2, Blood 24 mmol/L (21-32); Calcium, Blood 8.1 mg/dL (8.5-10.1); Chloride, Blood 106 mmol/L (98-108); Creatinine, Blood <0.14 mg/dL (0.40-1.00); Globulin, Blood 4.6 g/dL (2.2-4.0); Glucose, Blood 115 mg/dL (70-99); Potassium, Blood 4.3 mmol/L (3.5-5.5); Sodium, Blood 137 mmol/L (136-145); Total Protein, Blood 6.1 g/dL (6.4-8.2)
[2022-11-24 13:57] LABS: BAND PERCENT MAN 8 % (0-8); BASOPHILS PERCENT MAN 0 % (0-2); EOSINOPHILS PERCENT MAN 0 % (0-6); LYMPHOCYTES ABSOLUTE MAN 0.49 K/mm3 (0.84-5.20); LYMPHOCYTES PERCENT MAN 2 % (21-46); MONOCYTES ABSOLUTE MAN 0.49 K/mm3 (0.16-1.47); MONOCYTES PERCENT MAN 2 % (4-13); NEUTROPHILS ABSOLUTE MAN 23.87 K/mm3 (1.96-9.15); SEG NEUTROPHILS PERCENT MAN 88 % (41-73); TOTAL CELLS COUNTED 100
[2022-11-24 18:02] VITALS: BP 114/67
[2022-11-24 18:59] LABS: Gentamicin, Peak 14.7 ug/mL (4.0-8.0)
[2022-11-24 20:35] VITALS: BP 86/56
[2022-11-24 22:21] VITALS: BP 94/63
[2022-11-24 22:52] VITALS: BP 103/68
[2022-11-24 23:17] VITALS: BP 82/57
[2022-11-25] VITALS (15 sets, daily range): BP systolic 82–131; BP diastolic 57–69
[2022-11-25 03:46] LABS: BASOPHILS ABSOLUTE AUTO 0.02 K/mm3 (0.00-0.23); BASOPHILS PERCENT AUTO 0 % (0-2); EOSINOPHILS ABSOLUTE AUTO 0.06 K/mm3 (0.00-0.68); EOSINOPHILS PERCENT AUTO 0 % (0-6); Hematocrit 23.6 % (33.0-51.0); Hemoglobin 6.9 g/dL (11.5-16.0); IMMATURE GRAN ABSOLUTE AUTO 0.07 K/mm3 (0.00-0.10); IMMATURE GRAN PERCENT AUTO 1 % (0-1); LYMPHOCYTES ABSOLUTE AUTO 0.53 K/mm3 (0.84-5.20); LYMPHOCYTES PERCENT AUTO 4 % (21-46); MONOCYTES ABSOLUTE AUTO 0.68 K/mm3 (0.16-1.47); MONOCYTES PERCENT AUTO 5 % (4-13); Mean Corpuscular HGB 24.9 pg (26.0-34.0); Mean Corpuscular HGB Conc 29.2 g/dL (31.5-36.5); Mean Corpuscular Volume 85 fL (80-100); Mean Platelet Volume 10.3 fL (9.1-12.4); NEUTROPHILS ABSOLUTE AUTO 12.62 K/mm3 (1.96-9.15); NEUTROPHILS PERCENT AUTO 90 % (41-73); Platelet Count 201 K/mm3 (150-400); RDW Coefficient Variation 18.9 % (11.7-14.2); RDW Standard Deviation 57.8 fL (35.1-46.3); Red Blood Cell Count 2.77 M/mm3 (3.80-5.20); White Blood Cell Count 13.98 K/mm3 (4.00-11.30)
--- NOTE | 2022-11-25 04:09 | NUR ---
SHIFT SUMMARY NO ACUTE CHANGES THIS SHIFT. AXO4. BP STABLE WITH MIDODRINE DOSING. ON HOME VENT WITH TRACH, PT WAS PLACED ON 2L BLEEDIN THIS SHIFT WHILE SLEEPING DUE TO DESATTING TO 87 AND HOLDING CONSISTENTLY. LUNG SOUNDS REMAIN COARSE ON LEFT SIDE. SUPRAPUBE CATH PATENT/SECURE. WOUND VACS WITH VACUMM PRESENT TO WOUNDS. PT BEING REPOSITIONED WITH AID OF , HER CAREGIVER. PT APPROPRIATELY MAKING HER NEEDS KNOWN. BED IN LOW POSITION.
[2022-11-25 04:46] LABS: Anion Gap 6 mmol/L (6-16); Blood Urea Nitrogen 8 mg/dL (8-24); Bun/Creatinine Ratio Unable to Calculate (12.0-20.0); CO2, Blood 25 mmol/L (21-32); Calcium, Blood 7.6 mg/dL (8.5-10.1); Chloride, Blood 113 mmol/L (98-108); Creatinine, Blood <0.14 mg/dL (0.40-1.00); Glucose, Blood 87 mg/dL (70-99); Sodium, Blood 144 mmol/L (136-145)
[2022-11-25 09:26] LABS: Percent Saturation 7.6 % (15.0-50.0)
[2022-11-25 12:38] LABS: Gentamicin, Random 1.8 ug/Ml
--- NOTE | 2022-11-25 16:50 | NUR ---
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 PT ADMITTED WITH [employer] WOUND VAC TO BL HIPS. AFTER DISCUSSION WITH PT AND SPOUSE IT WAS DECIDED TO GIVE ABY A BREAK FROM VAC WHILE IN HOSPITAL D/T TONY-WOUND SKIN BREAKDOWN AND IRRITATION. WOULD RECOMMED DAILY WET TO DRY DRESSINGS
[2022-11-25 18:08] LABS: Base Excess Venous 2.7 mmol/L; Bicarbonate Venous 26.5 mmol/L (24.0-30.0); PCO2 Venous 43.1 mmHg (38-42); pH Blood Venous 7.41 (7.34-7.37)
--- NOTE | 2022-11-25 18:43 | NUR ---
END OF SHIFT PT A&O X4. SPEECH SOFT & HOARSE. TRACH COLLAR W/ HOME VENT IN PLACE W/ 2L BLEED IN. PT REPORTING NECK PAIN, MEDICATED W/ PAIN MEDICATION W/ PT REPORT OF IMPROVEMENT. PT W/ ELEVATED TEMP, MEDICATED W/ PRN TYLENOL PER EMAR W/ IMPROVEMENT. BP SOFT THIS AM, IMPROVING W/ SCHEDULED MIDODRINE PER EMAR. MONITOR SHOWING NSR, HR 70s-100. MEDIPORT ACCESSED W/ NS INFUSING @ KVO RATE. WOUND CARE NURSE TO BEDSDE FOR PT WOUND CARE, SEE PREVIOUS WOUND CARE NURSE NOTE. WOUND CARE NURSE W/ RECOMMENDATION FOR AIR BED FOR PT. MD SANDHU W/ ORDER FOR AIR BED, PT SUCCESSFULLY TRANSFERRED FROM PCU BED TO AIR BED IN . PT PROVIDING MAJORITY OF PT CARE PER PT/PT PREFERENCE. STAFF ASSISTING NEEDED.
[2022-11-25 21:11] LABS: Hematocrit 26.7 % (33.0-51.0); Hemoglobin 8.2 g/dL (11.5-16.0)
[2022-11-26] VITALS (20 sets, daily range): BP systolic 81–167; BP diastolic 53–107
[2022-11-26 04:09] LABS: BASOPHILS ABSOLUTE AUTO 0.03 K/mm3 (0.00-0.23); BASOPHILS PERCENT AUTO 0 % (0-2); EOSINOPHILS ABSOLUTE AUTO 0.04 K/mm3 (0.00-0.68); EOSINOPHILS PERCENT AUTO 0 % (0-6); IMMATURE GRAN ABSOLUTE AUTO 0.06 K/mm3 (0.00-0.10); IMMATURE GRAN PERCENT AUTO 0 % (0-1); LYMPHOCYTES ABSOLUTE AUTO 0.71 K/mm3 (0.84-5.20); LYMPHOCYTES PERCENT AUTO 5 % (21-46); MONOCYTES ABSOLUTE AUTO 0.63 K/mm3 (0.16-1.47); MONOCYTES PERCENT AUTO 5 % (4-13); Mean Corpuscular HGB 25.7 pg (26.0-34.0); Mean Corpuscular HGB Conc 30.8 g/dL (31.5-36.5); Mean Corpuscular Volume 84 fL (80-100); Mean Platelet Volume 8.5 fL (9.1-12.4); NEUTROPHILS ABSOLUTE AUTO 12.62 K/mm3 (1.96-9.15); NEUTROPHILS PERCENT AUTO 90 % (41-73); Platelet Count 567 K/mm3 (150-400); RDW Coefficient Variation 17.8 % (11.7-14.2); Red Blood Cell Count 3.11 M/mm3 (3.80-5.20); White Blood Cell Count 14.09 K/mm3 (4.00-11.30)
[2022-11-26 04:26] LABS: Albumin, Blood 1.3 g/dL (3.4-5.0); Anion Gap 4 mmol/L (6-16); Blood Urea Nitrogen 7 mg/dL (8-24); Bun/Creatinine Ratio 42.9 (12.0-20.0); CO2, Blood 28 mmol/L (21-32); Calcium, Blood 7.5 mg/dL (8.5-10.1); Chloride, Blood 109 mmol/L (98-108); Creatinine, Blood 0.16 mg/dL (0.40-1.00); Glomerular Filtration Rate 146 (60-); Glucose, Blood 106 mg/dL (70-99); Phosphorus, Blood 1.9 mg/dL (2.5-4.9); Potassium, Blood 3.8 mmol/L (3.5-5.5); Sodium, Blood 141 mmol/L (136-145)
--- NOTE | 2022-11-26 07:30 | NUR ---
SHIFT SUMMARY PT IS ALERT AND ORIENTED X 4. SPO2 MAINTAINED VIA TRACH AND HOME VENT W/ 2L BLEED. BP NOTED TO BE ELEVATED DURING SHIFT THEREFOR 0400 MITODRINE HELD. PT REQUESTED FOR PARAMETERS TO BE TAKEN OFF OF OF MITODRINE DUE TO CONCERN OF HYPOTENSION THAT OCCURS WHEN EATING, BEING REPOSITIONED, OR WHEN SHE RECEIVES A BREATHING TREATMENT. CESIA LANZA AWARE OF REQUEST TO LIFT MITODRINE PARAMETERS. Q2 TURNING IMPLIMENTED TO KEEP OFF PRESSURE POINTS, DRESSINGS REMAIN IN PLACE AND ARE DRY/CLEAN. LESTER HAS BEEN AT BEDSIDE T/O SHIFT. SP CATHETER IS IN PLACE AND DRAINING TO GRAVITY. PAIN REPORTED IN NECK, PLEASE SEE EMAR FOR PAIN MANAGEMENT. REPORT GIVEN TO CESIA LANZA.
--- NOTE | 2022-11-26 17:57 | NUR ---
SHIFT SUMMARY ALERT, ORIENTED, BEDREST. HOME VENT WORKING AT BEDSIDE, 2L O2 BLEED IN, RR 14, SPO2 SATS 95-100%. IN-LINE SUCTIONING PERFORMED BY RT AND SPOUSE. LS COARSE, UNABLE TO COUGH TO DUE QUADRAPLEGIA. SPOUSE USES COUGH ASSIST DEVICE AT BEDISDE PRN. VENT CONNECTED TO TRACH. SPOUSE PERFORMED TRACH CARE. Q2 HR TURNS. BUE ELEVATED ON PILLOWS, EDEMA IMPROVED. BM THIS SHIFT. MEPILEX TO SACRUM AND BILAT HIP WOUNDS. SUPRAPUBIC CATH PATENT AND DRAINING CLEAR, YELLOW URINE. 1700 URINE OUTPUT THIS SHIFT. ABLE TO SWALLOW AND GAG REFLEX PRESENT. TOLERATES ADA DIET AND THIN LIQUIDS. TAKES PILLS WHOLE IN WATER. CHEM BGS COVERED PER ACHS SS ON EMAR. MEDICATED FOR CHRONIC CERVICAL PAIN PRN PER EMAR. ROUTINE IV ABX RUNNING VIA [place].
[2022-11-27 00:17] VITALS: BP 142/74
[2022-11-27 00:50] LABS: Vancomycin, Trough 14.9 ug/mL (5.0-10.0)
[2022-11-27 04:16] VITALS: BP 133/70
--- NOTE | 2022-11-27 04:20 | NUR ---
ASSUMED CARE PATIENT IN BED, SPOUSE AT BEDSIDE. PATIENT A&O X4 ON HOME VENTILATOR AND IN NO DISTRESS. VS STABLE. SUPRAPUBIC CATH TO GRAVITY.
[2022-11-27 04:33] LABS: BASOPHILS ABSOLUTE AUTO 0.03 K/mm3 (0.00-0.23); BASOPHILS PERCENT AUTO 0 % (0-2); EOSINOPHILS ABSOLUTE AUTO 0.07 K/mm3 (0.00-0.68); EOSINOPHILS PERCENT AUTO 1 % (0-6); Hematocrit 25.2 % (33.0-51.0); Hemoglobin 7.7 g/dL (11.5-16.0); IMMATURE GRAN ABSOLUTE AUTO 0.06 K/mm3 (0.00-0.10); IMMATURE GRAN PERCENT AUTO 1 % (0-1); LYMPHOCYTES ABSOLUTE AUTO 0.68 K/mm3 (0.84-5.20); LYMPHOCYTES PERCENT AUTO 7 % (21-46); MONOCYTES ABSOLUTE AUTO 0.43 K/mm3 (0.16-1.47); MONOCYTES PERCENT AUTO 4 % (4-13); Mean Corpuscular HGB 25.9 pg (26.0-34.0); Mean Corpuscular HGB Conc 30.6 g/dL (31.5-36.5); Mean Corpuscular Volume 85 fL (80-100); Mean Platelet Volume 8.3 fL (9.1-12.4); NEUTROPHILS ABSOLUTE AUTO 8.93 K/mm3 (1.96-9.15); NEUTROPHILS PERCENT AUTO 88 % (41-73); Platelet Count 524 K/mm3 (150-400); RDW Standard Deviation 56.1 fL (35.1-46.3); Red Blood Cell Count 2.97 M/mm3 (3.80-5.20)
[2022-11-27 04:52] LABS: Albumin, Blood 1.3 g/dL (3.4-5.0); Anion Gap 5 mmol/L (6-16); Blood Urea Nitrogen 7 mg/dL (8-24); Bun/Creatinine Ratio 43.2 (12.0-20.0); CO2, Blood 30 mmol/L (21-32); Calcium, Blood 7.3 mg/dL (8.5-10.1); Chloride, Blood 106 mmol/L (98-108); Creatinine, Blood 0.16 mg/dL (0.40-1.00); Glomerular Filtration Rate 146 (60-); Glucose, Blood 103 mg/dL (70-99); Phosphorus, Blood 2.1 mg/dL (2.5-4.9); Potassium, Blood 3.8 mmol/L (3.5-5.5); Sodium, Blood 141 mmol/L (136-145)
[2022-11-27 07:59] VITALS: BP 118/73
[2022-11-27 11:06] VITALS: BP 126/92
[2022-11-27 15:44] VITALS: BP 89/60
[2022-11-27 17:33] LABS: Gentamicin, Trough 0.8 ug/mL (0.0-1.9)
[2022-11-27 19:20] VITALS: BP 107/65
--- NOTE | 2022-11-27 19:46 | NUR ---
SHIFT SUMMARY ALERT, ORIENTED. LS IMPROVED, CLEAR THROUGHOUT. STILL PRODUCING MOD THICK SPUTUM. IN LINE SUCTIONING PRN. HOME VENT IN PLACE, 14 BREATHS PER MIN. LABILE BP MANAGED WITH SCHEDULED MIDODRINE. ROUTINE IV ABX. Q2 HOUR TURNS. MEDICATED FOR CERVICAL NECK PAIN PRN. SPOUSE ATTENTIVE AT BEDSIDE. PLAN IS FOR DISCHARGE HOME WITH IV ABX. CAMERA PERSON TO REVISIT PATIENT AND DISCUSS POSSIBLE PLACEMENT OF PATIENT'S HOME WOUND VAC BEFORE DISCHARGE. SPOUSE TO BRING IN. REPORT GIVEN TO DRY CLIPPER TENDER RN.
[2022-11-28] VITALS (7 sets, daily range): BP systolic 141–169; BP diastolic 75–95
[2022-11-28 00:52] LABS: Vancomycin, Trough 16.8 ug/mL (5.0-10.0)
--- NOTE | 2022-11-28 05:48 | NUR ---
SHIFT SUMMARY A/OX4, QUADRIPLEGIC, BEDREST. SPO2 >92% WITH TRACH AND HOME VENT SETTINGS. TELE SR IN THE 80S, DENIES CHEST PAIN/PRESSURE. BP LABILE. AT BEDSIDE TO ASSIST WITH REPOSTIONING AND CARE. PT HAD MEDIUM FORMED BM THIS SHIFT. DRESSINGS TO BILATERAL HIPS C/D/I. BED IN LOWEST POSTIION WITH CALL LIGHT IN REACH. WILL CONTINUE TO MONITOR AND REPORT TO ONCOMING RN.
[2022-11-28] MEDS ORDERED: CEFTRIAXON1 GM/50 M1 IV (14:59)
[2022-11-28] MEDS ORDERED: GENTAMICIN IV (15:02)
[2022-11-28] MEDS ORDERED: VISBIOME 112.51 EACH PO (15:03)
[2022-11-28] MEDS ORDERED: Fenofibrate134 MG PO (15:15)
--- NOTE | 2022-11-28 17:39 | NUR ---
SHIFT SUMMARY; ASSUMED CARE AT 0700. A/A/OX4. QUADRAPALEGIC, SPOUSE AT BEDSIDE. SUPRA PUBIC CATH DRAINING TO GRAVITY, CLEAR YELLOW. TRACH COLLAR TO HOME VENT. Q2 TURNS, HEEL PROTECTORS ON, ELEBOWS FLOATED. MEPILEX TO BUTTOX WOUNDS CHANED TODAY, WOUNDS IRRIGATED WITH SALINE PER WOUND CARE. MEDIPORT ACCESSED AND HEPARIN PRIOR TO LEAVING PER PROTOCOL. PT WILL BE RECEIVING HOME ABX THERAPY. ORAL CARE AND HYGIENE TODAY BY SPOUSE, PLEASANT AND COOPERATIVE WITH CARE. DC'D TO HOME WITH UNDERSTANDING OF INSTRUCTIONS.
== END 2022-11-28 17:06 | disposition home or self-care (01) | DRG 871 ==
LOC: ER 12:07 → PCU 16:02
PROVIDERS: Emergency Medicine; Family Medicine; Internal Medicine Critical Care Medicine; Student in an Organized Health Care Education/Training Program; ADMIT Family Medicine
PROC: 5A1945Z Respiratory Ventilation, 24-96 Consecutive Hours (ICD-10-PCS; principal; 2022-11-24)
PROC: 02HV33Z Insertion of Infusion Device into Superior Vena Cava, Percutaneous Approach (ICD-10-PCS; 2022-11-24)
PROC: 3E03329 Introduction of Other Anti-infective into Peripheral Vein, Percutaneous Approach (ICD-10-PCS; 2022-11-24)
PROC: 0T2BX0Z Change Drainage Device in Bladder, External Approach (ICD-10-PCS; 2022-11-24)
PROC: 0BH17EZ Insertion of Endotracheal Airway into Trachea, Via Natural or Artificial Opening (ICD-10-PCS; 2022-11-24)
PROC: 30233N1 Transfusion of Nonautologous Red Blood Cells into Peripheral Vein, Percutaneous Approach (ICD-10-PCS; 2022-11-25)
DX: A41.50 Gram-negative sepsis, unspecified (principal); G82.50 Quadriplegia, unspecified; J18.9 Pneumonia, unspecified organism; J96.20 Acute and chronic respiratory failure, unspecified whether with hypoxia or hypercapnia; T83.511A Infection and inflammatory reaction due to indwelling urethral catheter, initial encounter; J95.851 Ventilator associated pneumonia; N39.0 Urinary tract infection, site not specified; J98.11 Atelectasis; E87.29 Other acidosis; E27.40 Unspecified adrenocortical insufficiency; Z99.11 Dependence on respirator [ventilator] status; F41.9 Anxiety disorder, unspecified; D75.839 Thrombocytosis, unspecified; D63.8 Anemia in other chronic diseases classified elsewhere; L89.150 Pressure ulcer of sacral region, unstageable; E11.622 Type 2 diabetes mellitus with other skin ulcer; F32.9 Major depressive disorder, single episode, unspecified; B96.89 Other specified bacterial agents as the cause of diseases classified elsewhere; E83.39 Other disorders of phosphorus metabolism; E88.09 Other disorders of plasma-protein metabolism, not elsewhere classified; E87.6 Hypokalemia; N31.9 Neuromuscular dysfunction of bladder, unspecified; L89.220 Pressure ulcer of left hip, unstageable; L89.210 Pressure ulcer of right hip, unstageable; I95.89 Other hypotension; I10 Essential (primary) hypertension; S71.002A Unspecified open wound, left hip, initial encounter; X58.XXXA Exposure to other specified factors, initial encounter; G90.9 Disorder of the autonomic nervous system, unspecified; S14.15 Other incomplete lesions of cervical spinal cord; S14.153S Other incomplete lesion at C3 level of cervical spinal cord, sequela; Z93.0 Tracheostomy status; Z88.8 Allergy status to other drugs, medicaments and biological substances; Z87.442 Personal history of urinary calculi; Z86.19 Personal history of other infectious and parasitic diseases; Z91.018 Allergy to other foods; Z79.51 Long term (current) use of inhaled steroids; Z79.82 Long term (current) use of aspirin; Z79.891 Long term (current) use of opiate analgesic; Z79.899 Other long term (current) drug therapy; Z79.84 Long term (current) use of oral hypoglycemic drugs; Z86.718 Personal history of other venous thrombosis and embolism; Z79.01 Long term (current) use of anticoagulants; Z79.2 Long term (current) use of antibiotics; Z98.1 Arthrodesis status; Z98.890 Other specified postprocedural states; Z87.891 Personal history of nicotine dependence; Y84.6 Urinary catheterization as the cause of abnormal reaction of the patient, or of later complication, without mention of misadventure at the time of the procedure
CPT/HCPCS: 31720; 36415; 36430; 51702; 71045; 80048; 80053; 80069; 80170; 80202; 81001; 82607; 82728; 82746; 82803; 82947; 83540; 83550; 83605; 85014; 85018; 85025; 86850; 86900; 86901; 86923; 87040; 87070; 87077; 87086; 87186; 87205; 93005; 93010; 94640; 94664; 94762; 96361-59; 96365-59; 96367-59; 99285-25; A9270; J0696; J1580; J1642; J1650; J1815; J3370; J7030; J7050; J7120; P9016

== ENCOUNTER 2022-12-02 02:45 | Day surgery (SDC) | payer OTHER ==
[~2022-12-02 02:45] MED LIST changes: +CEFTRIAXON1 GM/50 M1 IV; +Fenofibrate134 MG PO; +GENTAMICIN IV
[2022-12-02 15:02] VITALS: BP 120/94
[2022-12-02 15:25] LABS: BASOPHILS ABSOLUTE AUTO 0.05 K/mm3 (0.00-0.23); BASOPHILS PERCENT AUTO 0 % (0-2); EOSINOPHILS ABSOLUTE AUTO 0.15 K/mm3 (0.00-0.68); EOSINOPHILS PERCENT AUTO 1 % (0-6); Hematocrit 28.3 % (33.0-51.0); Hemoglobin 8.7 g/dL (11.5-16.0); IMMATURE GRAN ABSOLUTE AUTO 0.19 K/mm3 (0.00-0.10); IMMATURE GRAN PERCENT AUTO 1 % (0-1); LYMPHOCYTES ABSOLUTE AUTO 0.68 K/mm3 (0.84-5.20); LYMPHOCYTES PERCENT AUTO 3 % (21-46); MONOCYTES ABSOLUTE AUTO 1.03 K/mm3 (0.16-1.47); MONOCYTES PERCENT AUTO 5 % (4-13); Mean Corpuscular HGB 26.4 pg (26.0-34.0); Mean Corpuscular HGB Conc 30.7 g/dL (31.5-36.5); Mean Corpuscular Volume 86 fL (80-100); Mean Platelet Volume 8.8 fL (9.1-12.4); NEUTROPHILS ABSOLUTE AUTO 19.59 K/mm3 (1.96-9.15); NEUTROPHILS PERCENT AUTO 90 % (41-73); Platelet Count 748 K/mm3 (150-400); RDW Standard Deviation 57.1 fL (35.1-46.3); White Blood Cell Count 21.69 K/mm3 (4.00-11.30)
[2022-12-02 15:49] LABS: Albumin, Blood 1.5 g/dL (3.4-5.0); Albumin/Globulin Ratio 0.4 (0.8-1.8); Bilirubin, Total 0.4 mg/dL (0.1-1.0); Bun/Creatinine Ratio 79.6 (12.0-20.0); C-REACTIVE PROTEIN, EXT RANGE 0.965 mg/dL (0.000-0.300); Calcium, Blood 7.8 mg/dL (8.5-10.1); Creatinine, Blood 0.2 mg/dL (0.40-1.00); Globulin, Blood 4.1 g/dL (2.2-4.0); Potassium, Blood 3.9 mmol/L (3.5-5.5); Total Protein, Blood 5.6 g/dL (6.4-8.2)
--- NOTE | 2022-12-02 16:39 | NUR ---
LAB RESULTS FAXED TO [facility] PER MD ORDER.
== END 2022-12-02 15:16 | disposition home or self-care (01) ==
LOC: ATC 02:45
PROVIDERS: Internal Medicine Critical Care Medicine
DX: J15.1 Pneumonia due to Pseudomonas (principal); M86.9 Osteomyelitis, unspecified
CPT/HCPCS: 36415; 36591; 80053; 80170; 85025; 85651; 86140; J1642

== ENCOUNTER 2023-01-03 14:18 | Day surgery (SDC) | payer OTHER ==
[2023-01-03 14:41] VITALS: BP 155/103
[2023-01-03 15:48] LABS: BASOPHILS ABSOLUTE AUTO 0.01 K/mm3 (0.00-0.23); BASOPHILS PERCENT AUTO 0 % (0-2); EOSINOPHILS ABSOLUTE AUTO 0.08 K/mm3 (0.00-0.68); EOSINOPHILS PERCENT AUTO 1 % (0-6); Hematocrit 25.8 % (33.0-51.0); Hemoglobin 7.9 g/dL (11.5-16.0); IMMATURE GRAN ABSOLUTE AUTO 0.07 K/mm3 (0.00-0.10); IMMATURE GRAN PERCENT AUTO 1 % (0-1); LYMPHOCYTES ABSOLUTE AUTO 0.38 K/mm3 (0.84-5.20); LYMPHOCYTES PERCENT AUTO 3 % (21-46); MONOCYTES ABSOLUTE AUTO 0.56 K/mm3 (0.16-1.47); MONOCYTES PERCENT AUTO 5 % (4-13); Mean Corpuscular HGB 26.4 pg (26.0-34.0); Mean Corpuscular HGB Conc 30.6 g/dL (31.5-36.5); Mean Corpuscular Volume 86 fL (80-100); Mean Platelet Volume 9.2 fL (9.1-12.4); NEUTROPHILS ABSOLUTE AUTO 10.72 K/mm3 (1.96-9.15); NEUTROPHILS PERCENT AUTO 91 % (41-73); Platelet Count 530 K/mm3 (150-400); RDW Coefficient Variation 21.9 % (11.7-14.2); RDW Standard Deviation 67.9 fL (35.1-46.3); Red Blood Cell Count 2.99 M/mm3 (3.80-5.20); White Blood Cell Count 11.82 K/mm3 (4.00-11.30)
[2023-01-03 16:09] LABS: Albumin, Blood 1.5 g/dL (3.4-5.0); Albumin/Globulin Ratio 0.4 (0.8-1.8); Bilirubin, Total 0.2 mg/dL (0.1-1.0); Bun/Creatinine Ratio 46.4 (12.0-20.0); Creatinine, Blood 0.19 mg/dL (0.40-1.00); Globulin, Blood 4.2 g/dL (2.2-4.0); Thyroid Stimulating Hormone 1.26 uIU/mL (0.360-4.800); Total Protein, Blood 5.7 g/dL (6.4-8.2)
== END 2023-01-03 15:10 | disposition home or self-care (01) ==
LOC: ATC 14:18
PROVIDERS: Nurse Practitioner Family
DX: D64.9 Anemia, unspecified (principal); N95.9 Unspecified menopausal and perimenopausal disorder; Z87.891 Personal history of nicotine dependence
CPT/HCPCS: 36591; 80053; 82746; 84443; 85025; J1642

== ENCOUNTER 2023-01-31 01:48 | Day surgery (SDC) | payer OTHER ==
[2023-01-31 14:36] VITALS: BP 132/87
[2023-01-31 15:01] LABS: Hematocrit 25.7 % (33.0-51.0); Hemoglobin 7.4 g/dL (11.5-16.0)
== END 2023-01-31 14:55 | disposition home or self-care (01) ==
LOC: ATC 01:48
PROVIDERS: Nurse Practitioner Family
DX: D64.9 Anemia, unspecified (principal); Z88.1 Allergy status to other antibiotic agents; Z87.891 Personal history of nicotine dependence; J96.11 Chronic respiratory failure with hypoxia; J96.12 Chronic respiratory failure with hypercapnia
CPT/HCPCS: 36591; 85014; 85018; J1642

== ENCOUNTER 2023-02-12 03:44 | Day surgery (SDC) | payer OTHER ==
[2023-02-10 16:17] VITALS: BP 118/83
== END 2023-02-12 22:46 | disposition home or self-care (01) ==
LOC: ATC 03:44
DX: D64.9 Anemia, unspecified (principal); K21.9 Gastro-esophageal reflux disease without esophagitis; E78.2 Mixed hyperlipidemia; Z79.82 Long term (current) use of aspirin; Z79.899 Other long term (current) drug therapy
CPT/HCPCS: 36591; 86850; 86900; 86901; 86923; J1642